=== PATIENT | male | born 1950 | race Caucasian/White ===

== ENCOUNTER 2024-08-26 21:44 | Inpatient (IN) | payer MEDICARE, SELFPAY ==
[2024-08-26] VITALS (8 sets, daily range): BP systolic 159–200; BP diastolic 68–88; PULSE 55–66; RESP 14–28; TEMP 36.4; O2SAT 96–100
--- NOTE | ~2024-08-26 | CT_ITS ---
EXAMINATION: CTA chest abdomen pelvis DATE: 08/26/2024 23:02 INDICATION: CP -> back pain, hx CABG and CLL . TECHNIQUE: Computed tomography angiography of the chest, abdomen, and pelvis was performed with 100 m L Omnipaque-350 intravenous contrast in the arterial phase. Automated exposure control and iterative reconstruction technique were employed. The dose-length product was 25765.47 mGy-cm. COMPARISON: X-ray chest, same date; CT abdomen pelvis 01/15/2009; CT thorax 04/07/2005 FINDINGS: CHEST: Thoracic aorta: No significant dilation. No dissection. Mild arch calcification. Bovine arch. Lung parenchyma and airways: Motion artifact in the lungs. Small patchy areas of groundglass opacity in the upper and anterior lungs. Minimal dependent scar/atelectasis. Minimal airway debris in the tra bladimir. Thoracic inlet, axillae and chest wall: Mild symmetric gynecomastia. No thyroid mass. No axillary lym phadenopathy. Mediastinum: No mass or lymphadenopathy. Heart and pericardium: Cardiomegaly. Status post CABG. No pericardial effusion. Tricuspid valve repla cement. Atrial occlusion device. Coronary artery calcifications: . Pleura: Nonsimple small bilateral loculated appearing pleural fluid collections with surrounding pleu ral calcifications. Thoracic bones: No acute osseous finding in the chest. ABDOMEN/PELVIS: Liver: Normal. Biliary/Gallbladder: Gallbladder is normal. No bile duct dilation. Pancreas: No mass or duct dilation. Spleen: Normal. Adrenals:No mass. Kidneys: Mild bilateral cortical thinning. Bilateral subcentimeter hypodensities, too small to charac terize but most likely represent cysts. No obstructing calcification. No hydronephrosis. GI tract: Small hiatal hernia. No small or large bowel dilation. Normal appendix. Diverticulosis with out diverticulitis. Mesentery/Peritoneum: No ascites, mass, or free air. Retroperitoneum: No mass Atherosclerotic calcifications of intra-abdominal arterial vessels. 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 No aneurysm or dissection. IVC filter. Pelvis: Mild urinary bladder wall thickening. Prostatomegaly. Prominent bilateral seminal vesicles, a chronic finding. Soft Tissues: Small uncomplicated fat-containing umbilical and bilateral inguinal hernias. 2.9 cm rig ht lateral chest wall lipoma. 2.9 x 7.7 cm right erector spinae muscle intramuscular lipoma. Abdominopelvic bones: No acute osseous finding in the abdomen/pelvis. IMPRESSION: Mild patchy peripheral upper and anterior lung groundglass opacities, may represent mild edema or aty pical infection. Minimal tracheal airway debris, likely reflecting a degree of aspiration. Small loculated appearing nonsimple bilateral pleural fluid collections with peripheral calcification , may represent chronic hemothoraces. Empyema not excluded. Urinary bladder wall thickening as can be seen with cystitis or chronic obstruction from prostatomega ly. 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 Slow interval growth since 2 009. No aggressive features. Typically, soft tissue lipomas are referred for potential resection, whe n greater than 5 cm. Reviewed, dictated and finalized at location K. IMPRESSION: Mild patchy peripheral upper and anterior lung groundglass opacities, may repre sent mild edema or atypical infection. Minimal tracheal airway debris, likely reflecting a degree of aspiration. Small loculated appearing nonsimple bilateral pleural fluid collections with pe ripheral calcification, may represent chronic hemothoraces. Empyema not exclude d. Urinary bladder wall thickening as can be seen with cystitis or chronic obstruc tion from prostatomegaly. 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 Slow i nterval growth since 2008. No aggressive features. Typically, soft tissue lipom as are referred for potential resection, when greater than 5 cm.
--- NOTE | ~2024-08-26 | XR_ITS ---
EXAMINATION: XR chest 2V Exam Date/Time: 08/26/2024 22:00 CDT HISTORY: chest pain ANTERIOR MID CHEST Comparison: 03/08/2012. RESULT: Lines, tubes, and devices: Intact sternotomy wires. Cardiac valve replacement. Atrial occlusion stuart ce. Lungs and pleura: No focal consolidation, large pleural effusion, or pneumothorax. Mild bilateral co stophrenic angle blunting. Cardiomediastinal silhouette: Stable. Other: No acute osseous or upper abdominal finding. IMPRESSION: No acute cardiopulmonary process. Stable mild chronic bilateral costophrenic angle blunting, likely r elated to chronic scarring. Reviewed, dictated and finalized at location K. IMPRESSION: No acute cardiopulmonary process. Stable mild chronic bilateral costophrenic an gle blunting, likely related to chronic scarring.
--- NOTE | ~2024-08-26 | NM_ITS ---
EXAMINATION: NM joyce stress w perfusion DATE: 08/28/2024 11:22 CDT INDICATION: Chest pain TECHNIQUE: Rest images were obtained following intravenous administration of 11.2 mCi Tc99m tetrofosm in (Myoview). The patient was infused intravenously with Lexiscan (regadenoson). Then, 30.4 mCi Tc99m tetrofosmin (Myoview) was administered intravenously, and stress images were obtained. Data was martínez nstructed into short axis and horizontal and vertical long axis SPECT images. Gated SPECT images were also obtained. COMPARISON: None. FINDINGS: There is no definite reversible or fixed perfusion abnormality to suggest ischemia or infar ction. There is no segmental wall motion abnormality. Left ventricular ejection fraction measures 6 5%. IMPRESSION: 1. No definite ischemia or infarct. 2. Normal left ventricular ejection fraction measuring 65%. Reviewed, dictated and finalized at location A.
--- NOTE | 2024-08-26 21:45 | ECG_ITS ---
Test Date: 2024-08-26 21:49:43 Measurements Intervals [place] Rate: 66 P: 48 MD: 177 QRS: 29 QRSD: 106 T: 57 QT: 400 QTc: 421 Interpretive Statements SINUS RHYTHM NONSPECIFIC T-WAVE ABNORMALITY ABNORMAL ECG No previous ECG available for comparison Electronically Signed On 08-27-2024 10:03:19 CDT by Rafa Burnett M.D.
--- OUTSIDE RECORDS SUMMARY | 2024-08-26 21:47 | XMS_ITS | Encounter Summary ---
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 3-vessel coronary artery disease Procedures na Referral ID Status Reason Start Date Expiration Date Visits Re quested Visits Authorized [id number] 1 1 Encounter Details Date Type Department Care Team (Late st Contact Info) Description 05/26/2022 1:00 PM CDT Hospital Encounter [facility] [address] [place] [address] Emery Angeles MD [id number] [place] [address] Social History Tobacco Use Types Packs/Day Years Used Date Smoking Tobacco: Former Cigarettes 0.5 20 1 973 - 1992 Passive Smoke Exposure: Past Smokeless Tobacco: Never Alcohol Use Standard Drinks/Week Comments Yes 0 (1 standard drink = 0.6 oz pur e alcohol) Rarely OASIS D0700: Social Isolation Answer Da te Recorded Frequency of experiencing loneliness or isolatio n Never 07/19/2022 OASIS A1250: Transportation Answer Date Recorded Lack of Transportation (Medical) No 07/19/2022 Lack of Transportation (Non-Medical) No 07/19/2022 Patient Unable or Declines to Respond No 07/19/2022 OASIS B1300: Health Literacy Answer Dangelo e Recorded Frequency of needing help to read materials from doctor or pharmacy Never 07/19/2022 [facility] Utilities Answer Date Recorded In the past 12 months has th e [employer], gas, oil, or water [employer] threatened to shut off services in your home? No 09/25/2023 Social Connection and Isolat ion Panel [NHANES] Answer Date Recorded In a typical week, how many times do you talk on the phone with family, friends, or neighbors? More than three times a week 09/25/2023 How often do you get togethe r with friends or relatives? More than three times a week 09/25/2023 How often do you attend chur ch or mormon services? Never 09/25/2023 Do you belong to any clubs o r organizations such as methodist groups, unions, fraternal or athletic groups, or school groups? Yes 09/25/2023 How often do you attend meet ings of the clubs or organizations you belong to? More than 4 times per year 09/25/2023 Are you , , di vorced, , never , or living with a partner? 09/25/2023 AUDIT-C Answer Date Recorded Q1: How often do you have a drink containing alc ohol? 2-4 times a month 12/08/2021 Q2: How many drinks containi ng alcohol do you have on a typical day when you are drinking? 1 or 2 12/08/2021 Frequency of Binge Drinking Not on file 04/2021 Overall Financial Resource Strain (CARDIA) Answe r Date Recorded How hard is it for you to pa y for the very basics like food, housing, medical care, and heating? Not hard at all 09/25/2023 PHQ-2 Answer Date Recorded PHQ-2 Total Score (If total score is 3 or more points, staff should administer the PHQ-9) 0 05/22/2024 Hunger Vital Sign Answer Date Recorded Within the past 12 months, y ou worried that your food would run out before you got the money to buy more. Never true 09/25/19 24 Within the past 12 months, t he food you bought just didn't last and you didn't have money to get more. Never true 09/25/2023 PRAPARE - Transportation Answer Date Re corded In the past 12 months, has l ack of transportation kept you from medical appointments or from getting medications? No 09/06 In the past 12 months, has l ack of transportation kept you from meetings, work, or from getting things needed for daily living? No 09/25/2023 Housing Stability Vital Sign Answer Dangelo e Recorded In the last 12 months, was t here a time when you were not able to pay the mortgage or rent on time? No 09/25/2023 In the past 12 months, how m any times have you moved where you were living? 0 09/25/2023 At any time in the past 12 m [facility], were you homeless or living in a senior care (including now)? No 09/25/2023 Personal Safety Answer Date Recorded Have you ever been in or are you currently in a harmful physical or emotional relationship or is someone making you feel afraid or unsafe? 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 Gender Identity Male 09/21/2020 8:05 AM CDT Sexual Orientation Straight 09/21/2020 8: 05 AM CDT documented as of this encounter Last Filed Vital Signs Vital Sign Reading Time Taken Comments Blood Pressure 143/78 05/26/2022 5:20 PM CDT Pulse 73 05/26/2022 5:20 PM CDT Temperature - - Respiratory Rate 23 05/26/2022 5:20 PM CDT Oxygen Saturation 97% 05/26/2022 5:20 PM CDT Inhaled Oxygen Concentration - - Weight - - Height - - Body Mass Index - - documented in this encounter Functional Status * Audit-C Score Answer Date of Assessment Author 2 08/01/2023 5:47 PM CDT Che, Generic Provider * Q1: How often do you have a drink containing alcohol? Answer Date of Assessment Author 2-4 times a month 08/01/2023 5:47 PM CDT Mychart , Generic Provider * Q2: How many drinks containing alcohol do you have on a typical day when you are drinking? Answer Date of Assessment Author 1 or 2 08/01/2023 5:47 PM CDT Che, Generic Provider * Q3: How often do you have six or more drinks on one occasion? Answer Date of Assessment Author Never 08/01/2023 5:47 PM CDT Che, Generic Provider documented as of this encounter Nursing Notes * Elham Rodriguez RN - 05/26/2022 1:00 PM CDT Patient awake, alert and oriented x4. Vital signs stable. Right wrist no bleeding, no swelling present. Able to void without difficulty. Patient able to eat and drink without nausea or vomiting. Report called to To [id number] per wheelchair with RN. documented in this encounter Plan of Treatment Not on file documented as of this encounter Visit Diagnoses Not on filedocumented in this encounter Orders Admission Count Last Ordered Date First Orde red Date ADMIT TO INPATIENT 1 05/26/2022 documented in this encounter Care Teams Lace And Textiles Restorer Relationship Specialty [place] [address] [place] [address] PCP - General Internal Medicine 05/02/19 [place] [address] [place] [address] Surgeon Orthopedic Surgery 07/30/17 Shonda mSart MD [address] [place] [address] Medical Oncologist/Windows Laptop Technician Medical Oncology 03/30/20 08/28/23 documented as of this encounter
--- OUTSIDE RECORDS SUMMARY | 2024-08-26 21:47 | XMS_ITS | Encounter Summary ---
Author Organization [facility] Healthcare Address [address] [place] [address] Care Team Providers Care Rn L And D Name Role Phone Herbie Melendrez MD Unavailable Nisreen Gayle MD Primary Care Provider An Sin NP Unavailable [phone] Shonda Smart MD Unavailable Leann No MD Unavailable Emery Angeles MD Unavailable Miscellaneous, Not In File Unavailable Unava ilable Nieves Rhodes RN Unavailable [phone] Encounter Details Date Type Department Care Team (Latest Contact Info) Description 01/11/2022 Hospital Encounter [facility] [address] [place] [id number] Shortness of breath; Pleural effusion Social History Tobacco Use Types Packs/Day Years Used Date Smoking Tobacco: Former Cigarettes 0.5 20 1 - 1992 Passive Smoke Exposure: Past Smokeless [...] materials from doctor or pharmacy Never 07/19/2022 [facility] Utilities Answer Date Recorded In the past 12 months has th e electric, gas, oil, or water company threatened to shut off services in your [...] often do you attend chur ch or episcopalian services? Never 09/25/2023 Do you belong to any clubs o r organizations such as zoroastrianism groups, unions, fraternal or athletic groups, or [...] the money to buy more. Never true 08/20/20 24 Within the past 12 months, t [...] any time in the past 12 m [facility], were you homeless or living in a halfway (including now)? No 09/25/2023 Personal Safety Answer Date Recorded Have you ever been in or are you currently in a harmful physical or emotional relationship or is someone making you feel afraid or unsafe? 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 Answer Date of Assessment Author 2-4 times a month 08/01/2023 5:47 PM CDT Rhonda Bolton Provider * Q2: How many drinks containing alcohol do you have on a typical day when you are drinking? Answer Date of Assessment Author 1 or 2 08/01/2023 5:47 PM EMMANUELLET Rhonda Bolton Provider * Q3: How often do you have six or more drinks on one occasion? Answer Date of Assessment Author Never 08/01/2023 5:47 PM EMMANUELLET Rhonda Bolton Provider documented as of this encounter Plan of Treatment Not on file documented as of this encounter Procedures Procedure Name Priority Date/Time Associated Diagnosis Comments EGFR Routine 01/11/2022 9:20 AM HOTEL OR MOTEL CLEANING SUPERVISOR Shortness of breath Pleural effusion PRO B-TYPE NATRIURETIC PEPTIDE Routine 01/11/2022 9:20 AM HOTEL OR MOTEL CLEANING SUPERVISOR Shortness of breath Pleural effusion BASIC METABOLIC PANEL Routine 01/11/2022 9:20 AM HOTEL OR MOTEL CLEANING SUPERVISOR Shortness of breath Pleural effusion documented in this encounter Results * eGFR (01/11/2022 9:20 AM HOTEL OR MOTEL CLEANING SUPERVISOR) eGFR 72 mL/min/1. 73 m2 [facility] Comment: Interpretive Data Reference Interval Normal >/= 90 mL/min/1.73m2 Mildly decreased* 60 - 89 mL/min/1.73m2 Mildly to moderately decreased 45 - 59 mL/min/1.73m2 Moderately to severely decreased 30 - 44 mL/min/1.73m2 Severely decreased 15 - 29 mL/min/1.73m2 Kidney Failure < 15 mL/min/1.73m2 *Relative to young adult level Estimated glomerular filtration rate is determined by the 2020 CKD-EPI equation recommended by the National Kidney Foundation (A Unifying Approach to GFR Estimation: Recommendations of the NKF-ASK Task Force on Reassessing the Inclusion of Race in Diagnosing Kidney Disease, JASN 2020). The CKD-EPI equation should not be used for patients with unstable renal function and has not been validated in children and those over 70. Current interpretive data was last reviewed 2020. Testing performed by: [facility] [address], [facility] [address] Blood 01/11/2022 9:20 AM HOTEL OR MOTEL CLEANING SUPERVISOR 01/11/2022 9:33 AM HOTEL OR MOTEL CLEANING SUPERVISOR us Krish Alexander MD LAB BLOOD ORDERABLES Final Res ult [facility] [address] Department [place] [address] * Basic metabolic panel (01/11/2022 9:20 AM HOTEL OR MOTEL CLEANING SUPERVISOR) Sodium 138 135 - 145 mmol/L CERNER CH Comment:Testing performed by : [facility],[address] [place] [address] Potassium, pl 4.2 3.3 - 4.9 mmol/L CERNER CH Comment:Testing performed by : [facility],[address] [place] [address] Chloride 103 97 - 110 mmol/L C[facility]ER CH Comment:Testing performed by : [facility],[address] [place] [address] CO2 24 22 - 32 mmol/L [facility]ER CH Comment:Testing performed by : [facility],[address] [place] [address] Anion gap 11 2 - 15 mmol/L [facility]ER CH Comment:Testing performed by : [facility],[address] [place] [address] BUN 25 8 - 25 mg/dL [facility]ER CH Comment:Testing performed by : [facility],[address] [place] [address] Creatinine 1.10 0.80 - 1.30 mg/dL [facility]ER CH Comment:Testing performed by : [facility],[address] [place] [address] Glucose 139 70 - 199 mg/dL CERNER Comment: Interpretive Data Fasting glucose >/= 126 mg/dl is diagnostic for diabetes. Fasting is defined as no caloric intake for at least 8 hours. Fasting glucose between 100 mg/dl to 125 mg/dl is diagnostic of prediabetes. In a patient with classic symptoms of hyperglycemia or hyperglycemic crisis, a random glucose >/= 200 mg/dl is diagnostic for diabetes. In the absence of unequivocal hyperglycemia, results should be confirmed by repeat testing. The classification and Diagnosis of Diabetes Diabetes Care 2017;40 (Suppl. 1):S11. Current interpretive data was last revised 2016. Testing performed by: [facility],[address] [place] [address] Calcium 9.4 8.5 - 10.3 mg/dL C[facility]ER CH Comment:Testing performed by : [facility],[address] [place] [address] Blood 01/11/2022 9:20 AM HOTEL OR MOTEL CLEANING SUPERVISOR 01/11/2022 9:33 AM HOTEL OR MOTEL CLEANING SUPERVISOR Narrative CERNER - 01/11/2022 11:05 AM HOTEL OR MOTEL CLEANING SUPERVISOR Has the patient fasted?->No us Krish Alexander MD LAB BLOOD ORDERABLES Edited Re sult - Final [facility]I [facility] [address] [facility] Department [place] [address] * Pro B-type natriuretic peptide (01/11/2022 9:20 AM HOTEL OR MOTEL CLEANING SUPERVISOR) NT-proBNP 144 <=300 pg/mL PALLAVI Comment: Interpretive Comments: A. Dyspnea in Acute Care Setting All Ages: < 300 pg/ml, acute heart failure unlikely. < 50 yrs: 300 - 450 pg/ml, further investigation warranted. > 450 pg/ml, acute heart failure likely. 50 - 74 yrs: 300 - 900 pg/ml, further investigation warranted. > 900 pg/ml, acute heart failure likely . > or = 75 yrs: 450 - 1800 pg/ml, further investigation warranted. > 1800 pg/ml, acute heart failure likely. B. Non-acute Setting < 75 yrs < 125 pg/ml, rules out heart failure. > or = 125 pg/ml, further investigation warranted. > or = 75 yrs < 450 pg/ml, rules out heart failure. > or = 450 pg/ml, further investigation warranted. - Knowledge of each individual patient's NT-proBNP range may be more useful than using similar cut-points for every patient. Please note that marked elevations in NT-proBNP levels may be observed in state other than Left Ventricular Congestive Failure, including: acute coronary syndromes, right heart strain/failure (including pulmonary embolism and cor pulmonale), critical illness, renal failure, as well as advanced age. - References: 1. Josie VAIL et.al. Eur Heart J. 2006:27:330-337. 2. Lillian RW, Saqib AM. J. AM Neptali Cardiol: Cardiovasc Imag. 2009;2: 216- 225. Interpretive Data Last Revised Date: 2017. Blood 01/11/2022 9:20 AM HOTEL OR MOTEL CLEANING SUPERVISOR 01/11/2022 10:48 AM HOTEL OR MOTEL CLEANING SUPERVISOR Krish Alexander MD LAB BLOOD [place] [address] Department [place] [address] documented in this encounter Visit Diagnoses Diagnosis Shortness of breath Pleural effusion Unspecified pleural effusion documented in this encounter Care Teams Rn L And D Relationship Specialty [place] [address] [place] [address] PCP - General Internal Medicine 05/02/19 [place] [address] [place] [address] Surgeon Orthopedic Surgery 07/30/17 [place] [address] [place] [address] Nurse Practitioner Hematology 03/11/20 05/09/22 Shonda Smart MD [facility] [place], [place] [id number] Medical Oncologist/Hematologis t Medical Oncology 03/30/20 08/28/23 Leann No MD [address] [place], [place] [id number] Medical Oncologist/Hematologis t Hematology 08/17/21 05/09/22 Emery Angeles MD [address] [place], [place] [id number] Consulting Physician Cardiothoracic Surgery 06/24/22 Miscellaneous, Not In File 06/24/22 Nieves Rhodes RN [address] [place] [address] [address] [place] [address] Medical Technologist Chemistry 05/23/23 12/20/23 documented as of this encounter
--- OUTSIDE RECORDS SUMMARY | 2024-08-26 21:47 | XMS_ITS | Encounter Summary ---
Author Organization [facility] Healthcare Address [address] [place] [address] Care Team Providers Care It Project Manager Name Role Phone Herbie Melendrez MD Unavailable Nisreen Gayle MD Primary Care Provider Emery Angeles MD Unavailable [phone] Miscellaneous, Not In File Unavailable Unava ilable Reason for Visit * Reason Comments OP Infusion * Episode Based Medications (Routine) - Authorized Specialty Diagnoses / Procedures Referred By Contaudelia t Referred To Contact Oncology Diagnoses CLL (chronic lymphocytic leukemia) (HCC) Hypogammaglobulinemia Procedures CHEMOTHERAPY PA GAMUNEX-C/GAMMAKED IMMUNE GLOBULIN (GAMUNEX-C/GAMMAKED) Shonda Smart MD [address] [place] [address] [address] [place] [address] Phone: tel: fax: [facility] [address] [place] [address] Phone: tel: fax: Referral ID Status Reason Start Date Expiration Date V isits Requested Visits Authorized [id number] Authorized 07/04/2017 02/19/2025 99 99 Encounter Details Date Type Department Care Team (Latest Contact Info) Description 08/26/2024 8:30 AM CDT Infusion [facility] [address] [place] [address] Hypogammaglobulinemia (Primary Dx); CLL (chronic lymphocytic leukemia) (HCC) Social History Tobacco Use Types Packs/Day Years [...] materials from doctor or pharmacy Never 07/19/2022 [facility] Utilities Answer Date Recorded In the past 12 months has [employer], oil, or water [employer] threatened to shut off services in your [...] often do you attend chur ch or bahai services? Never 09/25/2023 Do you belong to any clubs o r organizations such as cheondoism groups, unions, fraternal or athletic groups, or [...] any time in the past 12 m [facility], were you homeless or living in a jail (including now)? No 09/25/2023 Personal Safety Answer Date Recorded Have you ever been in or are you currently in a harmful physical or emotional relationship or is someone making you feel afraid or unsafe? 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 Gender Identity Male 09/21/2020 8:05 AM CDT Sexual Orientation Straight 09/21/2020 8: 05 AM CDT documented as of this encounter Last Filed Vital Signs Vital Sign Reading Time Taken Comments Blood Pressure 132/76 08/26/2024 11:04 AM CDT Pulse 54 08/26/2024 11:04 AM CDT Temperature 36.7 C (98 F) 08/26/2024 11:04 AM CDT Respiratory Rate 18 08/26/2024 11:0 4 AM CDT Oxygen Saturation 98% 08/26/2024 11: 04 AM CDT Inhaled Oxygen Concentration - - Weight 101.1 kg (222 lb 12.8 oz) 08/26/2024 8:35 AM CDT Height - - Body Mass Index 31.09 05/22/2024 10:21 AM CDT documented in this encounter Nursing Notes * Jovany Castro RN - 08/26/2024 8:30 AM CDT Oncology Nursing Note [facility] Jack Corbett is a 73 y.o. male who presents for treatment cycle 85 of IVIG. Pre-treatment Nursing Assessment Nursing Assessment LOC: Alert, Awake Fatigue: None Any falls since your last visit?: No Orientation: Oriented x4 Behavior: Calm Speech: Clear Language: No aphasia Vision: At baseline Peripheral Neuropathy: No Oral Mucosa Grade: Normal (0) Shortness of Breath?: Yes (all the time, mild) Appetite: Good What diet do you follow at home?: regular Have You Recently Lost Weight Without Trying?: No Have you been eating poorly because of a decreased appetite?: No Malnutrition Screening Tool (MST) Score: 0 Nausea/Vomiting: No Diarrhea: No Constipation: No Skin Condition/Temp: Warm, Dry Swelling: No Encounter Vitals BP: 132/76 (08/26/2024 11:04 AM) Pulse: 54 (08/26/2024 11:04 AM) Resp: 18 (08/26/2024 11:04 AM) Temp: 36.7 ??C (98 ??F) (08/26/2024 11:04 AM) Temp src: Oral (08/26/2024 8:35 AM) SpO2: 98 % (08/26/2024 11:04 AM) Weight: 101.1 kg (222 lb 12.8 oz) (08/26/2024 8:35 AM) Pain Score: 0 - No pain Treatment Patient: does not require labs today. Pre blood return: Jellyisk Jack Corbett tolerated treatment well. Patient was frequently observed and monitored throughout the administration of their treatment. Post blood return: Brisk IV access post infusion: NS Patient Education Treatment Education: Information/teaching given to patient including fall prevention, pain, signs and symptoms of infection, bleeding, adverse reaction, symptom management, process and procedure related to today's visit, and when to notify MD Response: Verbalizes understanding Discharge Plan Discharge instructions given to patient. Future appointments given and reviewed with treatment plan. Discharge Mode: Ambulatory Accompanied by: Self Discharged To: Home documented in this encounter Plan of Treatment Not on file documented as of this encounter Visit Diagnoses Diagnosis Hypogammaglobulinemia- Primary Unspecified hypogammaglobulinemia CLL (chronic lymphocytic leukemia) (HCC) Chronic lymphoid leukemia, without mention of having achieved remission documented in this encounter Administered Medications Inactive Administered Medications - up to 3 most recent administrations Medication Order MAR Action Action Date Dose Rate Site acetaminophen (TYLENOL) tablet 650 mg 650 mg, oral, Once, On Sun08/26/24 at 0930, For 1 dose, Please give 30 minutes prior to IVIG.Indications:CLL (chronic lymphocytic leukemia) (HCC),Hypogammaglobulinemia Given 08/26/2024 8:57 AM CDT 650 mg diphenhydrAMINE (BENADRYL) tab/cap 25 mg 25 mg, oral, Once, On Sun08/26/24 at 0930, For 1 dose, Give 30 minutes prior to IVIG.Indications:CLL (chronic lymphocytic leukemia) (HCC),Hypogammaglobulinemia Given 08/26/2024 8:57 AM CDT 25 mg immune globulin (GAMUNEX-C,GAMMAKED) 10 % infusion 40 g 40 g (rounded from 40.44 g = 400 mg/kg 101.1 kg), intravenous, Once, On Sun08/26/24 at 0927, For 1 dose, GamuNEX C SUBSEQUENT Infusion, 15 Minute Titration Patient Weight: 101.1 kg Initiate Infusion at 0.6 mL/kg/hr. If no reaction, may increase rate by 0.6 mL/kg/hr every 15 minutes, to a max of 4.8 mL/kg/hr 1 . 0.6 mL/kg/hr = Infuse 15 mL over 15 minutes (Rate = 61 mL/hr) 2 . 1.2 mL/kg/hr = Infuse 30 mL over 15 minutes (Rate = 121 mL/hr) 3 . 1.8 mL/kg/hr = Infuse 45 mL over 15 minutes (Rate = 182 mL/hr) 4 . 2.4 mL/kg/hr = Infuse 61 mL over 15 minutes (Rate = 243 mL/hr) 5 . 3.0 mL/kg/hr = Infuse 76 mL over 15 minutes (Rate = 303 mL/hr) 6 . 3.6 mL/kg/hr = Infuse 91 mL over 15 minutes (Rate = 364 mL/hr) 7 . 4.2 mL/kg/hr = Infuse 106 mL over 15 minutes (Rate = 425 mL/hr) 8 . 4.8 mL/kg/hr for remainder (Rate = 485 mL/hr) __ Dose may be rounded to nearest 5 grams. Infusion Rate: For Patients up to 75kg 25 mL/hr x 30 minutes, then 50 mL/hr x 30 minutes, then 100 mL/hr x 30 minutes, then 130 mL/hr x 30 minutes, then 160 mL/hr until infusion complete 76 - 100kg 36 mL/hr x 30 minutes, then 72 mL/hr x 30 minutes, then 144 mL/hr x 30 minutes, then 200 mL/hr x 30 minutes, then 250 mL/hr until infusion complete > 100 kg 50 mL/hr x 30 minutes, then 100 mL/hr x 30 minutes, then 200 mL/hr x 30 minutes, then 260 mL/hr x 30 minutes, then 325 mL/hr until infusion complete Pharmacy will adjust dose for patients >120% ideal body weight based on the P&T Committee approved protocol.Indications:CLL (chronic lymphocytic leukemia) (HCC),Hypogammaglobulinemia Rate/Dose Change 08/26/2024 11:20 AM CDT Rate/Dose Change 08/26/2024 11:04 AM CDT 425 mL /hr Rate/Dose Change 08/26/2024 10:49 AM CDT 364 mL /hr documented in this encounter Orders Nursing Count Last Ordered Date First Orde red Date ONCBCN NURSING COMMUNICATION [id number] 2 0 08/26/2024 VITAL SIGNS INTRA-INFUSION 1 08/26/2024 Appointment Requests Count Last Ordered Date Fi rst Ordered Date ONCBCN INFUSION APPT REQUEST 1 08/26/2024 documented in this encounter Care Teams It Project Manager Relationship Specialty [place] [address] [place] [address] PCP - General Internal Medicine 05/02/19 [place] [address] [place] [address] Surgeon Orthopedic Surgery 07/30/17 [place] [address] [place] [address] Consulting Physician Cardiothoracic Surgery 06/24/22 Miscellaneous, Not In File 06/24/22 documented as of this encounter
--- OUTSIDE RECORDS SUMMARY | 2024-08-26 21:47 | XMS_ITS | Encounter Summary ---
Author Organization [facility] Healthcare Address [address] [place] [address] Care Team Providers Care Wiper Blender Name Role Phone Herbie Melendrez MD Unavailable Nisreen Gayle MD Primary Care Provider An Sin NP Unavailable Shonda Smart MD Unavailable Leann No MD Unavailable [phone] Emery Angeles MD Unavailable Miscellaneous, Not In File Unavailable Unava ilable Nieves Rhodes RN Unavailable [phone] Encounter Details Date Type Department Care Team (Late st Contact Info) Description 04/06/2020 Telephone [facility] [address] [place] [address] Bing Briones, RT Social History Tobacco Use Types Packs/Day Years Used Date Smoking Tobacco: Former Cigarettes 0.5 20 1 3 - 1992 Smokeless Tobacco: Never Alcohol Use Standard Drinks/Week Comments Yes 0 (1 standard drink = 0.6 oz pur e alcohol) Rarely PHQ-2 Answer Date Recorded PHQ-2 Total Score 0 05/02/2019 Sex and Gender Information Value Date Recorded Sex Assigned at Not on file 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 Gender Identity Male 09/21/2020 8:05 AM CDT Sexual Orientation Straight 09/21/2020 8: 05 AM CDT documented as of this encounter Plan of Treatment Not on file documented as of this encounter Visit Diagnoses Not on filedocumented in this encounter Care Teams Wiper Blender Relationship Specialty [place] [address] [place] [address] PCP - General Internal Medicine 05/02/19 [place] [address] [place] [address] Surgeon Orthopedic Surgery 07/30/17 [place] [address] [place] [address] Nurse Practitioner Hematology 03/11/20 05/09/22 Shonda Smart MD [address] [facility] [address] [place] [address] Medical Oncologist/Hematologis t Medical Oncology 03/30/20 08/28/23 Leann No MD [address] [place] [address] Medical Oncologist/Hematologis t Hematology 08/17/21 05/09/22 Emery Angeles MD [address] [place] [address] Consulting Physician Cardiothoracic Surgery 06/24/22 Miscellaneous, Not In File 06/24/22 Nieves Rhodes RN [address] [place] [address] [address] [place] [address] Rehab Care Assistant 05/23/23 12/20/23 documented as of this encounter
--- OUTSIDE RECORDS SUMMARY | 2024-08-26 21:47 | XMS_ITS | Encounter Summary ---
Author Organization [facility] Address [address] [place] [address] Phone Care Team Providers Care Zanjero Name Role Phone Baldomero Ignacio MD Primary Care Provider Herbie Melendrez MD Unavailable Nisreen Gayle MD Primary Care Provider An Sin NP Unavailable Shonda Smart MD Unavailable Leann No MD Unavailable [phone] Emery Angeles MD Unavailable Miscellaneous, Not In File Unavailable Unava ilable Nieves Rhodes RN Unavailable Reason for Visit * Reason Onset Date Comments SCHEDULE UPDATE 09/18/2018 Encounter Details Date Type Department Care Team (Late st Contact Info) Description 09/18/2018 Telephone [facility] Oncology [address] 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 Gender Identity Male 09/21/2020 8:05 AM CDT Sexual Orientation Straight 09/21/2020 8: 05 AM CDT documented as of this encounter Plan of Treatment Not on file documented as of this encounter Visit Diagnoses Not on filedocumented in this encounter Care Teams Zanjero Relationship Specialty Start Date End Date Baldomero Ignacio MD PCP - General 05/25/16 05/01/19 [place] [address] [place] [address] PCP - General Internal Medicine 05/02/19 [place] [address] [place] [address] Surgeon Orthopedic Surgery 07/30/17 [place] [address] [place] [address] Nurse Practitioner Hematology 03/11/20 05/09/22 Shonda Smart MD [address] [place] [address] [address] [place] [address] Medical Oncologist/Hematologis t Medical Oncology 03/30/20 08/28/23 Leann No MD [address] [place], [place] [address] Medical Oncologist/Hematologis t Hematology 08/17/21 05/09/22 Emery Angeles MD [address] [place] [address] [address] [place] [address] Consulting Physician Cardiothoracic Surgery 06/24/22 Miscellaneous, Not In File 06/24/22 Nieves Rhodes, [place] [address] [place] [address] [address] [place] [address] Braille Coder 05/23/23 12/20/23 documented as of this encounter
--- OUTSIDE RECORDS SUMMARY | 2024-08-26 21:47 | XMS_ITS | Encounter Summary ---
Author Organization [facility] Address [address] [place] [address] Phone Care Team Providers Care Scoop Operator Name Role Phone Baldomero Ignacio MD Primary Care Provider Herbie Melendrez MD Unavailable Nisreen Gayle MD Primary Care Provider An Sin NP Unavailable [phone] Shonda Smart MD Unavailable Leann No MD Unavailable [phone] Emery Angeles MD Unavailable [phone] Miscellaneous, Not In File Unavailable Unava ilable Nieves Rhodes RN Unavailable Reason for Visit * Reason Onset Date Comments SCHEDULE UPDATE 02/26/2019 Encounter Details Date Type Department Care Team (Late st Contact Info) Description 02/26/2019 Telephone [facility] Oncology 10 [facility] [address] [place] [address] Yane Chu, A SCHEDULE UPDATE Social History Tobacco Use Types Packs/Day Years Used Date Smoking Tobacco: Former Smokeless Tobacco: Never Alcohol Use Standard Drinks/Week Comments Yes 0 (1 standard drink = 0.6 oz pur e alcohol) saocial PHQ-2 Answer Date Recorded PHQ-2 Score 0 09/28/2018 Sex and Gender Information Value Date Recorded Sex Assigned at Not on file 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 Gender Identity Male 09/21/2020 8:05 AM CDT Sexual Orientation Straight 09/21/2020 8: 05 AM CDT documented as of this encounter Plan of Treatment Not on file documented as of this encounter Visit Diagnoses Not on filedocumented in this encounter Care Teams Scoop Operator Relationship Specialty Start Date End Date Baldomero Ignacio MD PCP - General 05/25/16 05/01/19 [place] [address] [place] [address] PCP - General Internal Medicine 05/02/19 [place] [address] [place] [address] Surgeon Orthopedic Surgery 07/30/17 [place] [address] [place] [address] Nurse Practitioner Hematology 03/11/20 05/09/22 Shonda Smart MD [address] [facility] [address] [place] [address] Medical Oncologist/Hematologis t Medical Oncology 03/30/20 08/28/23 Leann No MD [address] [facility] [address] [place] [address] Medical Oncologist/Hematologis t Hematology 08/17/21 05/09/22 Emery Angeles MD [address] [facility] [address] [place] [address] Consulting Physician Cardiothoracic Surgery 06/24/22 Miscellaneous, Not In File 06/24/22 Nieves Rhodes, [place] [address] [place] [address] [address] [place] [address] Hydrodynamics Professor 05/23/23 12/20/23 documented as of this encounter
--- OUTSIDE RECORDS SUMMARY | 2024-08-26 21:47 | XMS_ITS | Encounter Summary ---
Author Organization [facility] Healthcare Address [address] [place] [address] Care Team Providers Care Alternative Energy Engineer Name Role Phone Herbie Melendrez MD Unavailable Nisreen Gayle MD Primary Care Provider An Sin NP Unavailable Shonda Smart MD Unavailable Leann No MD Unavailable [phone] Emery Angeles MD Unavailable Miscellaneous, Not In File Unavailable Unava ilable Nieves Rhodes RN Unavailable [phone] Encounter Details Date Type Department Care Team (Late st Contact Info) Description 07/09/2020 Telephone [facility] Imaging [address] [place] [address] Bing Briones, RT Social History Tobacco Use Types Packs/Day Years Used Date Smoking Tobacco: Former Cigarettes 0.5 20 1 3 - 1992 Smokeless Tobacco: Never Alcohol Use Standard Drinks/Week Comments Yes 0 (1 standard drink = 0.6 oz pur e alcohol) Rarely AUDIT-C Answer Date Recorded Q1: How often do you have a drink containing alc ohol? Monthly or less 05/31/2020 Q2: How many drinks containi ng alcohol do you have on a typical day when you are drinking? 1 or 2 05/31/2020 Q3: How often do you have si x or more drinks on one occasion? 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 Gender Identity Male 09/21/2020 8:05 AM CDT Sexual Orientation Straight 09/21/2020 8: 05 AM CDT documented as of this encounter Plan of Treatment Not on file documented as of this encounter Visit Diagnoses Not on filedocumented in this encounter Care Teams Alternative Energy Engineer Relationship Specialty [place] [address] [place] [address] PCP - General Internal Medicine 05/02/19 [place] [address] [place] [address] Surgeon Orthopedic Surgery 07/30/17 [place] [address] [place] [address] Nurse Practitioner Hematology 03/11/20 05/09/22 Shonda Smart MD [address] [facility] [address] [place] [address] Medical Oncologist/Hematologis t Medical Oncology 03/30/20 08/28/23 Leann No MD [address] [place] [address] [address] [place] [address] Medical Oncologist/Hematologis t Hematology 08/17/21 05/09/22 Emery Angeles MD [address] [facility] [address] [place] [address] Consulting Physician Cardiothoracic Surgery 06/24/22 Miscellaneous, Not In File 06/24/22 Nieves Rhodes RN [address] [place] [address] [address] [place], [place] [address] Beam Dyer Operator 05/23/23 12/20/23 documented as of this encounter
--- OUTSIDE RECORDS SUMMARY | 2024-08-26 21:47 | XMS_ITS | Encounter Summary ---
Author Organization [facility] Healthcare Address [address] [place] [address] Care Team Providers Care Dependency Case Manager Name Role Phone Herbie Melenderz MD Unavailable Nisreen Gayle MD Primary Care Provider An Sin NP Unavailable Shonda Smart MD Unavailable Leann No MD Unavailable [phone] Emery Angeles MD Unavailable [phone] Miscellaneous, Not In File Unavailable Unava ilable Nieves Rhodes RN Unavailable [phone] Encounter Details Date Type Department Care Team (Late st Contact Info) Description 03/30/2020 Telephone [facility] Imaging [address] [place] [address] [address] Social History Tobacco Use Types Packs/Day Years [...] on file 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 Gender Identity Male 09/21/2020 8:05 AM CDT Sexual Orientation Straight 09/21/2020 8: 05 AM CDT documented as of this encounter Plan of Treatment Not on file documented as of this encounter Visit Diagnoses Not on filedocumented in this encounter Care Teams Dependency Case Manager Relationship Specialty [place] [address] [place] [address] PCP - General Internal Medicine 05/02/19 [place] [address] [place] [address] Surgeon Orthopedic Surgery 07/30/17 [place] [address] [place] [address] Nurse Practitioner Hematology 03/11/20 05/09/22 Shonda Smart MD [address] [facility] [address] [place] [address] Medical Oncologist/Hematologis t Medical Oncology 03/30/20 08/28/23 Leann No MD [address] [place] [address] Medical Oncologist/Hematologis t Hematology 08/17/21 05/09/22 Emery Angeles MD [address] [place] [address] Consulting Physician Cardiothoracic Surgery 06/24/22 Miscellaneous, Not In File 06/24/22 Nieves Rhodes RN [address] [place] [address] [address] [place] [address] Home Appliance Washing Machine Mechanic 05/23/23 12/20/23 documented as of this encounter
--- OUTSIDE RECORDS SUMMARY | 2024-08-26 21:48 | XMS_ITS | Clinical Summary ---
Author Organization [facility] Address [address] [address] Care Team Providers Care Blueprint Duplicator Name Role Phone Herbie Melendrez MD Unavailable [phone] Nisreen Gayle MD Primary Care Provider Emery Angeles MD Unavailable Miscellaneous, Not In File Unavailable Unava ilable Allergies Active Allergy Reactions Criticality Noted Date Comments Adhesive Photosensitivity Low Atorvastatin Rash Medium 01/11/2020 Bacitracin Zinc-Polymyxin B Blisters High 12/12/2021 Benzalkonium Chloride Rash Medium 12/12/2019 [place] Chloride Rash Medium 12/12/2019 Cocamidopropyl Betaine Rash Medium 12/12/2019 Decyl Glucoside Rash Medium 12/12/2019 Formaldehyde Rash Medium 12/12/2019 Obinutuzumab Other (See comments),Nausea only Low 08/17/2021 Back pain and feeling that muscles are heavy Pitavastatin Rash Medium 01/11/2020 Nickel Rash Medium 12/12/2019 Other Rash Medium 12/12/2019 Potassium dichromate -- patch test 3 Paraben mix -- patch test 1+ Fragrance Mix II -- patch test 1+ [id number] Reductase Inhibitors Rash Medium 10/15/2019 Medications cetirizine (ZyrTEC) 10 mg tablet Take 1 tablet (10 mg total) by mouth daily Active aspirin 81 mg enteric coated tablet Take 1 tablet (81 mg total) by mouth daily 30 tablet 06/03/19 23 Active losartan (COZAAR) 50 mg tablet Take 1 tablet (50 mg total) by mouth daily 90 tablet 3 08/08/19 24 Active metFORMIN XR (GLUCOPHAGE XR) 500 mg 24 hr tablet Take 3 tablets (1,500 mg total) by mouth daily with breakfast 270 tablet 1 11/19/19 24 025 Active glipiZIDE (GLUCOTROL) 5 mg tabletIndications :type 2 diabetes mellitus Take 1 tablet (5 mg total) by mouth daily 90 tablet 3 02/18/19 25 026 Active atorvastatin (LIPITOR) 80 mg tabletIndications :Mixed hyperlipidemia TAKE 1 TABLET BY MOUTH EVERY DAY 90 tablet 2 03/27/19 25 Active PARoxetine (PAXIL) 20 mg tablet TAKE 1 TABLET BY MOUTH EVERY DAY 90 tablet 1 05/01/19 25 Active metoprolol XL (TOPROL-XL) 25 mg extended release tablet TAKE 1 TABLET BY MOUTH EVERY DAY AT NIGHT 90 tablet 3 07/29/19 25 Active tamsulosin (FLOMAX) 0.4 mg extended release capsule TAKE 1 CAPSULE BY MOUTH EVERY DAY 100 capsule 1 08/10/[address] (PROTONIX) 40 mg EC tablet TAKE 1 TABLET BY MOUTH EVERY DAY 100 tablet 08/24/19 25 Active tamsulosin (FLOMAX) 0.4 mg extended release capsule Take 1 capsule (0.4 mg total) by mouth daily 90 capsule 2 11/22/19 24 025 Discontinued metoprolol XL (TOPROL-XL) 25 mg extended release tablet TAKE 1 TABLET BY MOUTH EVERY DAY AT NIGHT 90 tablet 1 02/04/20 [address] (PROTONIX) 40 mg EC tablet TAKE 1 TABLET BY MOUTH EVERY DAY 90 tablet 1 02/10/19 25 025 Discontinued Active Problems Problem Noted Date Diagnosed Date Subclinical hypothyroidism 02/13/2024 Assessment & Plan (02/13/2024 9:45 AM DUCT LAYER HELPER): Will check TSH today. If normal could consider decreasing levothyroxine to 25 mcg daily and then repeat in 8 weeks. He was hoping to get off this medication. It was initially started for subclinical hypothyroidism given his erectile dysfunction, which has not changed with treatment. Pulmonary HTN 12/27/2023 Shortness of breath 12/27/2023 Coronary artery disease 12/27/2023 Erectile dysfunction 08/08/2023 Assessment & Plan (08/08/2023 10:10 AM CDT): Interested in testosterone replacement therapy if he qualifies I have some concerns about TRT with his history of CAD and PE/cardiac thrombus Will check a T level today but recommend pursuing non-hormonal options first. Referred to urology as he has failed 2 PDE5 inhibitors already. Abdominal pain 08/08/2023 Assessment & Plan (08/08/2023 9:27 AM CDT): Suspect MSK pain but will get CT to rule out intraabdominal pathology Pulmonary hypertension 02/06/2023 Assessment & Plan (08/08/2023 7:56 AM CDT): Continue follow up with pulmonology ABLA (acute blood loss anemia) 06/21/2022 Assessment & Plan (06/22/2022 9:05 AM CDT): Expected finding post op CABG, AVR Monitor CBC daily Consider transfusion for Hgb < 7 or if pt becomes symptomatic Thrombocytopenia 06/14/2022 Assessment & Plan (08/08/2023 7:58 AM CDT): Continue follow up with hem/onc Assessment & Plan (07/06/2022 12:32 PM CDT): Stable. Platelets yesterday 171. 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 -Continue metformin 1500 mg extended release daily for control of diabetes. Recommend addition of Ozempic 0.25 mg once weekly for 7 days then increase to 0.5 mg once weekly. Reviewed potential side effects. If not cost effective, try Jardiance. -Discussed weight loss and aerobic exercise at least 30 minutes on most days. Discussed how exercise decreases insulin resistance. -Discussed counting carbohydrates, portion control, and meal planning. -Discussed cardiovascular risk from uncontrolled blood glucose. -Check blood glucose regularly for management of diabetes-fasting goal less than 130, postprandial less than 180. Recommend diabetes education. Discussed importance of glycemic control (A1C < 7.0) in preventing complications of diabetes including retinopathy, nephropathy, risk for cardiovascular event such as heart attack and stroke, and neuropathy. -Patient verbalized an understanding of all instructions and plan. Assessment & Plan (08/08/2023 8:00 AM CDT): A1c today Ozempic was unaffordable Continue metformin XR 1g daily - can increase further if A1c above goal Follow up 6 mo Assessment & Plan (11/24/2022 11:49 AM CDT): A1c today Foot exam and urine micral/cr today Eye exam scheduled Continue metformin 500 daily Add ozempic to assist with weight loss Follow up 6 months Assessment & Plan (06/22/2022 8:57 AM CDT): POA HgA1C 6.9 SSI with tid, ac and hs Carb consistent diet POC BGM BS well controlled on current regimen Assessment & Plan (05/24/2022 12:58 PM CDT): A1c today If above goal, will increase metformin Assessment & Plan (11/09/2021 1:43 PM CDT): A1c above goal Start metformin XR 500 daily Discussed lifestyle modifications Foot exam today without neuropathy Urine micral/cr today He will schedule an eye exam A1c in 3 months Follow up in office in 6 months Class 1 obesity due to exces s calories with body mass index (BMI) of 32.0 to 32.9 in adult 05/31/2020 Assessment & Plan (02/13/2024 8:08 AM DUCT LAYER HELPER): BMI Follow-up includes: nutrition counseling, exercise counseling, and education provided. Assessment & Plan (08/08/2023 9:26 AM CDT): BMI Follow-up includes: nutrition counseling, exercise counseling, and education provided. Assessment & Plan (11/24/2022 11:48 AM CDT): BMI Follow-up includes: nutrition counseling, exercise counseling, and education provided. Start ozempic Assessment & Plan (07/06/2022 11:00 AM CDT): BMI Follow-up includes: nutrition counseling, exercise counseling and education provided. Assessment & Plan (06/06/2022 1:47 PM CDT): BMI Follow-up includes: nutrition counseling, exercise counseling and education provided. Assessment & Plan (05/31/2020 9:02 AM CDT): Obesity is unchanged. Discussed the patient's BMI. The BMI is above average; BMI management plan is completed. General weight loss/lifestyle modification strategies discussed (elicit support from others; identify saboteurs; non-food rewards, etc). Absolute anemia 2019 Overview (2019): Added automatically from request for surgery [id number] Recurrent major depressive disorder, in full rem ission 05/02/2019 Assessment & Plan (02/13/2024 9:42 AM DUCT LAYER HELPER): Controlled Continue paroxetine 20 mg daily Assessment & Plan (08/08/2023 8:00 AM CDT): Controlled Continue paroxetine 20 Assessment & Plan (06/22/2022 9:01 AM CDT): POA Continue Paxil Offer counseling Assessment & Plan (11/09/2021 1:44 PM CDT): Continue paxil 20 Assessment & Plan (05/31/2020 10:28 AM CDT): Paxil 20 mg daily. Assessment & Plan (05/02/2019 3:25 PM CDT): Continue Paxil 20 daily RLS (restless legs syndrome) 03/06/2017 Assessment & Plan (03/06/2017 9:28 AM DUCT LAYER HELPER): He is doing well on current regimen of Requip Hyperlipidemia 02/10/2016 Overview (07/19/2017): Hyperlipidemia, unspecified hyperlipidemia type Assessment & Plan (08/08/2023 7:57 AM CDT): Lipid panel today Continue atorvastatin 80 Assessment & Plan (06/22/2022 9:02 AM CDT): POA Continue Lipitor 80 mg daily Low fat diet Assessment & Plan (05/31/2020 10:27 AM CDT): Currently taking Repatha every 14 days for his cholesterol. Unable to tolerate statins. Assessment & Plan (05/02/2019 3:28 PM CDT): Continue Simvastatin 20 daily Repeat lipid panel Assessment & Plan (04/18/2018 12:33 PM CDT): Stable: Advised patient to maintain a low fat, low cholesterol diet and exercise. Reviewed LDL goal of less than 100 for diabetics and patients with vascular disease, LDL less than 130 for everyone else. Encouraged compliance with diet and any medication prescribed. As well as compliance with office follow up to monitor safety and effectiveness of diet and or medication. Patient verbalized understanding. CLL (chronic lymphocytic leukemia) ([facility]) 06/2016 Overview (12/05/2016): CLL (chronic lymphocytic leukemia): follows with Dr. Smart q 6 mos. (April and Oct.) Assessment & Plan (08/08/2023 8:00 AM CDT): Continue follow up with onc Assessment & Plan (07/06/2022 12:31 PM CDT): Following with Dr. Smart. Venetoclax is on hold for now. I have reviewed CBC and blood counts are stable. Assessment & Plan (06/06/2022 2:33 PM CDT): Chemotherapy On hold due to upcoming surgery. Assessment & Plan (11/09/2021 1:44 PM CDT): On Gazyva and Venetoclax Follow up with hem/onc Assessment & Plan (05/02/2019 3:29 PM CDT): Continue follow up with Dr. Smart Assessment & Plan (04/18/2018 11:15 AM CDT): CLL (chronic lymphocytic leukemia): follows with Dr. Berry stallworth 6 mos. (April and Oct.) Hypogammaglobulinemia 02/10/2016 Overview (07/19/2017): Hypogammaglobulinaemia, unspecified: IVIG monthly. Assessment & Plan (08/08/2023 8:00 AM CDT): Receives IVIG infusions Continue follow up with hematology Assessment & Plan (07/06/2022 12:28 PM CDT): Stable. Continue IVIG. Assessment & Plan (05/31/2020 10:27 AM CDT): Taking IVIG. Assessment & Plan (05/02/2019 3:28 PM CDT): Follows with Heme/Onc Receiving IVIG Assessment & Plan (04/18/2018 12:34 PM CDT): Hypogammaglobulinaemia, unspecified: IVIG monthly. Assessment & Plan (03/06/2017 9:29 AM DUCT LAYER HELPER): As per his current chief station engineer Leukopenia 02/10/2016 Overview (05/11/2016): Leukopenia, unspecified type Assessment & Plan (04/18/2018 12:34 PM CDT): Continues to follow with his oncologist. Assessment & Plan (03/06/2017 9:29 AM DUCT LAYER HELPER): Continues to follow with his oncologist blood work is due in middle April Right atrial thrombus 2015 Assessment & Plan (06/22/2022 9:00 AM CDT): POA Was on Eliquis at home- last dose Saturday 06/10 RA mass removed in OR with port a cath Await surgical pathology results Assessment & Plan (11/09/2021 1:41 PM CDT): Continue eliquis 5 bid Assessment & Plan (05/31/2020 10:28 AM CDT): On Eliquis 5 mg b.i.d. Chronic dyspnea 06/26/2012 Assessment & Plan (11/09/2021 1:46 PM CDT): Acutely worsened about 3 months ago Possible med side effect (dyspnea listed as possible adverse reaction for venetoclax) Less likely PE as he is anticoagulated but with presence of R atrial thrombus this could be a concern Another consideration would be CHF/ischemic cardiomyopathy. nuc stress test in August showed regional wall motion abnormalities with EF 45% while TTE showed EF 60%. Will discuss with Dr. No and Dr. Alexander Essential hypertension 03/21/2012 Overview (07/19/2017): Essential hypertension Assessment & Plan (05/21/2024 1:45 PM CDT): BP controlled Continue losartan 50, metoprolol XL 25 Assessment & Plan (02/13/2024 9:42 AM DUCT LAYER HELPER): BP well controlled Continue losartan 50 mg daily, metoprolol XL 25 mg daily, furosemide 20 mg daily. Assessment & Plan (08/08/2023 7:57 AM CDT): BP well controlled Continue losartan 25, metoprolol XL 25 Assessment & Plan (11/23/2022 5:10 PM CDT): BP well controlled Continue metoprolol XL 25 Assessment & Plan (07/06/2022 12:29 PM CDT): Stable. Continue metoprolol 25 mg b.i.d., Lasix 40 mg daily and potassium 40 mEq daily Assessment & Plan (06/06/2022 2:33 PM CDT): BP well controlled Continue coreg 3.125 BID, Entresto 24-26 Assessment & Plan (05/24/2022 8:03 AM CDT): BP well controlled Continue coreg 3.125 BID, Entresto 24-26 Assessment & Plan (11/09/2021 1:42 PM CDT): BP well controlled Continue amlodipine 10, entresto 24-26, coreg 3.125 BID Assessment & Plan (05/31/2020 10:27 AM CDT): BP 124/80 (BP Location: Right arm, Patient Position: Sitting) Pulse 71 Temp 36.7 C (98 F) Resp 14 Ht 180.3 cm (5' 10.98) Wt 104.6 kg (230 lb 9.6 oz) SpO2 98% BMI 32.18 kg/m On appropriate medication. Stable at this time. Assessment & Plan (05/02/2019 3:28 PM CDT): BP well controlled Continue losartan 50, amlodipine 10 Assessment & Plan (04/18/2018 12:33 PM CDT): Stable: Continue current medications, monitor closely and treat as clinical course dictates. Reviewed clinical desk top, past labs, diagnostic tests and consultations from other providers. Reviewed past medical, surgical and hospitalization history. Patient verbalizes understanding of plan of care and follow up plan. Assessment & Plan (03/06/2017 9:30 AM DUCT LAYER HELPER): Blood pressure has been adjusted with lower doses of losartan Assessment & Plan (11/28/2016 11:28 AM CDT): Stable continue current medication and keep blood pressure log. Resolved Problems Problem Noted Date Diagnosed Date Resolved Date Post-op pain 06/21/2022 08/08/2023 Assessment & Plan (06/22/2022 9:02 AM CDT): As expected post op Continue Tylenol and Oxycodone prn Pain improved after CT removed Utilize splinting technique Hematoma of right thigh 06/21/2022 07/0 04/2023 Assessment & Plan (07/06/2022 12:32 PM CDT): Improving. Assessment & Plan (06/22/2022 9:03 AM CDT): SVG harvest site bleeding post op that required manual pressure x several hours Now with hematoma to right thigh Continue Cefepime prophylaxis due to his history of CLL CAD, multiple vessel 06/13/2022 024 Acute non-recurrent pansinusitis 06/06/2022 08/08/2023 Assessment & Plan (06/06/2022 2:33 PM CDT): - will treat for bacterial sinusitis given duration of symptoms. -Encouraged sterile saline sinus rinses BID-TID. Continue Flonase daily -Take full course of abx. Even if symptoms are improving. -RTC if symptoms are worsening, fever, or symptoms are not improving. Coronary artery disease 05/26/2022 07/0 04/2023 Assessment & Plan (07/06/2022 12:30 PM CDT): Status post CABG ( SINGLETON to LAD, SVG to OM) on June 16. IDenia, GARAGE MECHANIC have personally reviewed pertinent inpatient and/or ED records, including discharge medications and [employer] if applicable. This patient's discharge medication list has been reviewed and reconciled with his outpatient medication list and has also been reviewed with patient and/or caregiver. I have noted any changes. Recovering well at home with home health and PT. Patient has not started cardiac rehab just yet. He follows up with surgeon and Cardiology soon. Continue current medications. Assessment & Plan (06/22/2022 9:04 AM CDT): S/p CABG (SINGLETON to LAD, SVG to OM) on 06/16 Continue post operative care Increase activity as tolerated PT/OT/OOB Continue ASA, statin and BB-titrate BB as BP/HR tolerates Continue aggressive diuresis as Lasix 40 IV BID Monitor I/O closely Echo prior to discharge Allergic sinusitis 05/24/2022 Assessment & Plan (05/24/2022 12:58 PM CDT): Recommend saline sinus rinse daily and flonase daily Call if no improvement in 1 week Acute diastolic congestive heart failure 05/15/2022 08/08/2023 Overview (05/15/2022): Added automatically from request for surgery [id number] Acute bilateral low back mary n with bilateral sciatica 05/31/2020 08/08/2023 Assessment & Plan (05/31/2020 10:29 AM CDT): Tizanidine 4 mg as needed for muscle spasms. Referral for physical therapy. Acute bilateral low back pain with sciatica 05/31/2020 11/09/2021 Screening for prostate cancer 05/31/2020 11/09/2021 Assessment & Plan (05/31/2020 10:28 AM CDT): The natural history of prostate cancer and ongoing controversy regarding screening and potential treatment outcomes of prostate cancer has been discussed with the patient. The meaning of a false positive PSA and a false negative PSA has been discussed. He indicates understanding of the limitations of this screening test and wishes to proceed with screening PSA testing. Coronary artery disease with angina pectoris 10/14/2023 Assessment & Plan (08/08/2023 7:57 AM CDT): S/p CABG Continue aspirin, statin Follow up with cardiology Assessment & Plan (06/06/2022 2:32 PM CDT): Continue Aspirin, statin, carvedilol. Follows with Dr. Alexander S/p Cardiac catheterization 05/30/2022 Significant LMCA stenosis. Mild atherosclerotic calcified diseasecin LAD and LCX. RCA is 40% stenosed in mid section. Has upcoming bypass scheduled for 06/14/2022 Assessment & Plan (11/09/2021 1:41 PM CDT): Continue aspirin, statin, coreg Follow up with cardiology Assessment & Plan (05/31/2020 10:26 AM CDT): Patient is not on aspirin because he takes Eliquis 5 mg daily. He is also on a beta-sarah an Arb and takes Repatha for his cholesterol. Encounter for Medicare annual wellness exam 05/30/2020 08/08/2023 Assessment & Plan (05/31/2020 10:27 AM CDT): Patient has been educated regarding preventative screening, immunizations, physical activity goes and management of chronic health conditions. Healthy lifestyle recommended, including regular exercise (daily aerobic & twice weekly resistance training), prudent diet, calcium & vitamin D supplementation, colonoscopy (starting @ age 50 for average risk person),, periodic blood pressure monitoring, & bone-density testing (starting @ age 65 in average-risk person). For males PSA beginning at the age of 45 if warranted. Coronary artery disease invo lving [place] coronary artery of [place] heart without angina pectoris 04/25/2020 05/31/2020 Left foot pain 09/03/2018 05/02/2019 Assessment & Plan (09/03/2018 10:53 AM CDT): Refer for plain films. Rest, elevate and ice 20 minutes per day. Patient cannot take NSAIDs. If no improvement may need to refer to Orthopedics. Patient verbalizes understanding. Osteoarthritis of carpometac arpal (CMC) joint of right thumb 07/30/2017 04/18/2018 Overview (07/30/2017): Added automatically from request for surgery [id number] Other pulmonary embolism wit hout acute cor pulmonale 03/06/2017 04/18/2018 Assessment & Plan (03/06/2017 9:28 AM DUCT LAYER HELPER): He continues to be treated by his oncologist, continues on Eliquis lifelong states he follows with Dr. Smart Moderate episode of recurren t major depressive disorder 03/06/2017 05/02/2019 Assessment & Plan (04/18/2018 12:35 PM CDT): Stable: Continue current medication. Assessment & Plan (03/06/2017 9:29 AM DUCT LAYER HELPER): Patient is doing very well on current medical regimen. Will continue with same treatment and monitor as clinical course dictates. Arthritis of right hand 03/06/201704/05 BMI 32.0-32.9,adult 12/19/2016 06/07/19 23 Assessment & Plan (05/24/2022 11:55 AM CDT): BMI Follow-up includes: nutrition counseling, exercise counseling and education provided. BMI 33.0-33.9,adult 11/28/2016 06/07/19 23 Overview (03/06/2017): BMI Follow-up includes: nutrition counseling, exercise counseling and education provided. Assessment & Plan (11/09/2021 11:42 AM CDT): BMI Follow-up includes: nutrition counseling, exercise counseling and education provided. Assessment & Plan (05/31/2020 10:25 AM CDT): Body mass index is 32.18 kg/m . BMI Follow-up includes: nutrition counseling, exercise counseling and education provided. Assessment & Plan (05/02/2019 10:08 AM CDT): BMI Follow-up includes: nutrition counseling, exercise counseling and education provided. Assessment & Plan (09/03/2018 10:32 AM CDT): BMI Follow-up includes: nutrition counseling, exercise counseling and education provided. Assessment & Plan (04/18/2018 10:51 AM CDT): BMI Follow-up includes: nutrition counseling, exercise counseling and education provided. Assessment & Plan (11/28/2016 10:09 AM CDT): BMI Follow-up includes: nutrition counseling, exercise counseling and education provided. Chronic renal insufficiency, stage 3 (moderate) 11/28/2016 03/06/2017 Assessment & Plan (11/28/2016 11:52 AM CDT): Patient has been holding his diclofenac and his losartan was decreased to 50 mg daily. Patient states he is unable to hold his diclofenac due to arthritis pain. He will restart his diclofenac. I will refer him to Nephrology. Patient will also hold his PPI and take [id number] Zantac instead. prison current use of ant icoagulant therapy 05/25/2016 12/23/2019 Assessment & Plan (04/18/2018 12:35 PM CDT): Continue Eliquis 5 mg daily. History of pulmonary embolism 02/10/2016 12/23/2019 Overview (12/05/2016): History of pulmonary embolism x 2: Has IVC filter and currently on Eliquis, follows with Dr. Leann No. Assessment & Plan (05/02/2019 3:28 PM CDT): Continue Eliquis Assessment & Plan (04/18/2018 12:33 PM CDT): History of pulmonary embolism x 2: Has IVC filter and currently on Eliquis, follows with Dr. Leann No. Congestive heart failure 06/18/2012 Chronic lymphoid leukemia in remission ([facility]/HCC) 09/22/2011 11/09/2021 Assessment & Plan (05/31/2020 10:26 AM CDT): Patient has been in remission for some time. He continues to get IVIG monthly as prescribed by his drop wire hanger. Doing well. Chronic lymphocytic leukemia of B-cell type 03/07/2011 05/31/2020 Encounters Date Type Department Care Team Description 08/26/2024 8:30 AM CDT Infusion [place] [address] [place] [address] Hypogammaglobulinemia (Primary Dx); CLL (chronic lymphocytic leukemia) (HCC) 07/29/2024 8:00 AM CDT Infusion [facility] [address] [place] [address] Hypogammaglobulinemia (Primary Dx); CLL (chronic lymphocytic leukemia) (HCC) 06/25/2024 10:30 AM CDT Infusion [place] [address] [place] [address] Hypogammaglobulinemia (Primary Dx); CLL (chronic lymphocytic leukemia) (HCC) 06/25/2024 10:00 AM CDT Office Visit [facility] Hematology [address] [place] [address] Katina Martin MD CLL (chronic lymphocytic leukemia) (HCC) 06/25/2024 9:30 AM CDT Lab [facility] [address] [address] CLL (chronic lymphocytic leukemia) ([facility]) from Last 3 Months Immunizations Immunization Administration Dates Next Due Influenza, Quadrivalent, Marylou l Culture-based MDCK, Preservative Free, Antibiotic Free, Intramuscular 12/02/2019,11/26/2018,11/13/2017,07/2016 Influenza, Quadrivalent, Hig h Dose, Preservative Free, Intrr 11/24/2022 11/25/2023 Influenza, Quadrivalent, Spl it, Intramuscular 11/08/2015 Influenza, Trivalent, High D ose, Split, Preservative Free, Intramuscular 11/21/2023 Influenza, Trivalent, Preser vative Free, Intramuscular 11/10/2014,11/12/2013,11/11/2012,11/05,11/29/2010,11/22/2009 Influenza, Unspecified 10/31/2021,11/05/2020, Pfizer SARS-CoV-2 Monovalent Vaccination (12+ Yrs) PURPLE 03/13/2020 Pneumococcal Conjugate PCV 13 04/22/2015 Pneumococcal Polysaccharide PPV23 04/18/2018 RSV Vaccine, Pref, Recombina nt, Subunit, Adjuvanted, PF, IM (Arexvy) 12/25/2022 RSV, Bivalent, Protein Subun it Rsvpref, Diluent (Abrysvo) 12/25/2022 Tdap 12/25/2022,03/21/2012 ZOSTER LIVE 04/22/2015 ZOSTER Recombinant 04/11/2023,12/20/2022 Surgical History Surgery Date Site/Laterality Comments PORT PLACEMENT CHEST >5 YEARS 09/09/2012 N/A LASIK THORACENTESIS several INSERT VENA CAVA FILTER 02/05/2009 - 02/04/2010 THUMB SURGERY 02/05/2017 - 02/04/2018 BRONCHOSCOPY CORONARY ARTERY BYPASS GRAFT April 2022 CARDIAC VALVE REPLACEMENT Repair tricuspid 04/27 Medical History Medical History Date Comments Pulmonary embolism (HCC) 2009, 2016 Hx Other Medical 2009 hemothorax in s etting of lovenox for PE Hypertension Hyperlipidemia Restless leg syndrome Cataracts, bilateral Port-A-Cath in place Depression Osteoarthritis of carpometac arpal (CMC) joint of right thumb 07/30/2017 Added automatically from [facility] [id number] Arthritis of right hand 03/06/2017 CLL (chronic lymphocytic cisco kemia) (HCC) 2005 s/p chemotherapy, IVIG GERD (gastroesophageal reflux disease) Heart disease April 2022 Family History Medical History Relation Name Comments Heart attack Brother Marcello Corbett Coronary artery disease Father Layton Corbett [place] nary artery disease - (Added by TW Conv) Diabetes Father Layton Corbett FHx: diabetes m ellitus - (Added by TW Conv) Heart disease Father Layton Corbett Heart disease; Cause of : Heart disease Hypertension Father Layton Corbett Arthritis Maternal Grandmother Jil Abdalla Colon polyps Mother Colon polyps; Transient ischemic attack Mother Other Other 1 No family histo ry of Cancer, colon; Other Other 2 No family histo ry of Crohn's disease; Other Other 3 No family histo ry of Ulcerative colitis; Anesthesia problems Neg Hx Relation Name Status Comments Brother Marcello Corbett Alive Father Layton Corbett (Age 77) Maternal Grandmother Jil Abdalla Mother Alive Other 1 Other 2 Other 3 Social History Tobacco Use Types Packs/Day Years Used Date Smoking Tobacco: Former Cigarettes 0.5 20 1 3 - 1992 Passive Smoke Exposure: Past Smokeless Tobacco: Never Tobacco Cessation:Counseling Given: Not Answered Alcohol Use Standard Drinks/Week Comments Yes 0 [...] materials from doctor or pharmacy Never 07/19/2022 [facility] Utilities Answer Date Recorded In the past 12 months has e [employer], oil, or water [employer] threatened to shut off services in your [...] week 09/25/2023 How often do you attend [facility] or roman catholic services? Never 09/25/2023 Do you belong to [...] time in the past 12 m [facility], were you homeless or living in a care home (including now)? No 09/25/2023 Personal Safety Answer Date Recorded Have you ever been in or are you currently in a harmful physical or emotional relationship or is someone making you feel afraid or unsafe? 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 Gender Identity Male 09/21/2020 8:05 AM CDT Sexual Orientation Straight 09/21/2020 8: 05 AM CDT Obstetrics History Last Filed Vital Signs Vital Sign Reading [...] 12.8 oz) 08/26/2024 8:35 AM CDT Height 180.3 cm (5' 10.98) 05/22/2024 10:21 AM CDT Body Mass Index 31.09 05/22/2024 10:21 AM CDT Plan of Treatment Health Maintenance Due Date Last Done Comments Covid-19 Vaccine (2023-2 5 season) 2023 11/10/2020, 04/05/2020, 03/13/2020 Well Visit 65+ 08/07/2024 08/08/2023, 06/2021, 05/31/2020, Additional history exists Influenza Vaccine (#1) 2024 , 11/24/2022, 10/31/2021, Additional history exists Hemoglobin A1C 11/21/2024 05/22/2024, 0 09/2024, 08/08/2023, Additional history exists Dilated Eye Exam 11/29/2024 11/30/2023, , 11/21/2021 Albumin Creatinine Ratio, Urine 02/12/2025 02/13/2024, 11/24/2022, 11/09/2021, Additional history exists Foot Exam 02/12/2025 02/13/2024, 11/06, 11/09/2021 Lipid Panel 04/15/2025 04/15/2024, 07/0 04/2023, 06/13/2022, Additional history exists Depression Screening 05/22/2025 05/22/2024, 02/13/2024, 08/08/2023, Additional history exists Fall Risk Assessment 05/22/2025 05/22/2024, 02/13/2024, 01/25/2024, Additional history exists eGFR 06/25/2025 06/25/2024, 020 05/2024, 01/15/2024, Additional history exists Colon Cancer Screening-Colonoscopy 11/09/2029 11/10/2019, 03/06/2014 DTaP/Tdap/Td Vaccine (3 - Td or Tdap) 12/25/2032 12/25/2022, 03/21/2012 Pneumococcal vaccine 65+ Completed 04/18/2018, 04/05 Colon Cancer Screening-CT Colonography Discontinued 11/10/2019, 03/06/2014 Colon Cancer Screening-DNA Stool Discontinued 11/10/19, 03/06/2014 Colon Cancer Screening-FIT Discontinued 11/10/2019, Colon Cancer Screening-Sigmoidoscopy Discontinued 11/10/2019, 03/06/2014 Hepatitis B Screening Completed 08/11/2021 Hepatitis C Screening Completed 08/11/2021 , 12/28/2020, 04/18/2018 Prostate Cancer Screening-PSA Discontinued , 06/16/2019, 04/18/2018 Zoster Vaccine Completed 04/11/2023, 12/06, 04/22/2015 Abdominal Aortic Aneurysm (A AA) Screen Completed 08/30/2023, 05/27/2022, 08/11/2021, Additional history exists Medical Devices Implanted Type Area Supervisor Assembly And Packing Device Identifier Shelf Expiration Date Model / Serial / Lot [employer] Carmelita-Edwa rds Physio 26mm Extended Length Handle Ergonomic [id number] - [id number] - [id number] Implanted:Qty: 1 on 06/16/2022 by Emery Angeles MD at [facility] Other - see comments N/A: Heart [employer] [id number] 03/08/2027 [id number] / [id number] / Description:TRICUSPID VALVE Ivc Filter Abdomen Port Chest Arthrex Inc Ar-[id number] Dx Swivelock Sl 3.5mm 8.5mm Fork Eyelet [place] Suture Sterile - [id number] Implanted:Qty: 1 on 08/07/2017 by Herbie Melendrez MD at [facility] Orthopedic Ivins Right: Wrist Arthrex Inc 05/05/2022 AR-[id number] / / [id number] Arthrex Inc Ar-8978p Dx Swivelock Sl 3.5mm 8.5mm Fork Eyelet [place] Suture Sterile - [id number] Implanted:Qty: 1 on 08/07/2017 by Herbie Melendrez MD at [facility] Right: Wrist [employer]rex Inc 05/05/2022 AR-8978P / / [id number] Ethicon Endo Surgery Ligaclip Extra 2.6mm Ligate Open Small Clip Internal Titanium Latex Free Lt100 - [id number] Implanted:Qty: 6 on 06/16/2022 by Emery Angeles MD at [facility] Ethicon Endo Surgery [id number] / / Ethicon Endo Surgery Ligaclip Extra 3.2mm Ligate Open Medium Clip Internal Titanium Latex Free Lt200 - [id number] Implanted:Qty: 2 on 06/16/2022 by Emery Angeles MD at [facility] Ethicon Endo Surgery LT200 / / Atricure Atriclip [place] ve 35mm 6mm Head Articulation Stiff Shaft [id number] - [id number] Implanted:Qty: 1 on 06/16/2022 by Emery Angeles MD at [facility] N/A: Heart Atricure 12/06/2024 [id number] / / [id number] Explanted Type Area Supervisor Assembly And Packing Device Identifier Shelf Expiration Date Model / Serial / Lot Arthrex Inc [id number] Drill Guide Bit Cannulated Guidewire 3mm 3.5mm 1.35mm Kit - [id number] Explanted:Qty: 1 on 08/07/2017 by Herbie Melendrez MD at [facility] Orthopedic Ivins Right: Wrist Arthrex Inc 02/04/2022 AR-8978DS-0 1 / / [id number] Procedures Procedure Name Priority Date/Time Associated Diagnosis Comments EGFR Routine 06/25/2024 9:33 AM CDT CLL (chronic lymphocytic leukemia) (HCC) DIFFERENTIAL AUTO Routine 06/25/2024 9:3 3 AM CDT CLL (chronic lymphocytic leukemia) (HCC) CBC WITH AUTO DIFFERENTIAL Routine 06/25/2024 9:33 AM CDT CLL (chronic lymphocytic leukemia) (HCC) COMPREHENSIVE METABOLIC PANEL Routine 06/25/2024 9:33 AM CDT CLL (chronic lymphocytic leukemia) (HCC) LACTATE DEHYDROGENASE Routine 06/25/2024 9:33 AM CDT CLL (chronic lymphocytic leukemia) (HCC) POCT HEMOGLOBIN A1C Routine 05/22/2024 10:29 AM CDT Type 2 diabetes mellitus with other circulatory complication, without long-term current use of insulin (HCC) LIPID PANEL Routine 04/15/2024 12:06 PM CDT Mixed hyperlipidemia ALBUMIN CREATININE RATIO, URINE Routine 02/13/2024 9:13 AM DUCT LAYER HELPER Type 2 diabetes mellitus with other circulatory complication, without long-term current use of insulin (HCC) HM DIABETES EYE EXAM Routine 11/30/2023 8:[address] CHEST ABDOMEN PELVIS W CONTRAST Schedule Routine, Read Routine (OP Routine) 08/30/2023 11:18 AM CDT Abdominal pain PSA SCREEN Routine 11/24/2022 12:56 PM CDT Encounter for screening for malignant neoplasm of prostate HEPATITIS PANEL, ACUTE Routine 08/11/2021 9:00 AM CDT CLL (chronic lymphocytic leukemia) (HCC) Hypogammaglobulinemi a COLONOSCOPY 11/10/2019 9:09 AM CDT from Last 3 Months or Most Recently Relevant to Health Maintenance Results * eGFR (06/25/2024 9:33 AM CDT) eGFR 63 >=60 mL/min/1. 73 m2 Comment: Interpretive Data Reference Interval Normal >/= [...] was last reviewed 2020. Testing performed by: [facility] [place] [address] Blood 06/25/2024 9:33 AM CDT 06/25/2024 9:33 AM CDT us Katina Martin MD LAB BLOOD ORDERABLES Final Resul t [facility] [id number] [address] Department [place] [address] * (ABNORMAL) Differential, auto (06/25/2024 9:33 AM CDT) Pathologist [facility] Neutrophil abs 2.55 1.50 - 6.50 K/cumm Comment:Testing performed by : [facility] [place] [address] Imm gran abs 0.01 0.00 - 0.10 K/cumm PALLAVI RIVERA Comment:Testing performed by : [facility] [place] [address] Lymphocyte abs 0.53(L) 0.80 - 3.30 K/cumm CERNER CH Comment:Testing performed by : [facility] [place] [address] Monocyte abs 0.41 0.20 - 0.80 K/cumm CERNER CH Comment:Testing performed by : [facility] [place] [address] Eosinophil abs 0.10 0.00 - 0.50 K/cumm CERNER CH Comment:Testing performed by : [facility] [place] [address] Basophil abs 0.02 0.00 - 0.10 K/cumm CERNER CH Comment:Testing performed by : [facility] [place] [address] Neutrophil pct 70.4 % CERNER CH Comment: Interpretive Data Percent cell count reference ranges are not reported, since discordance with absolute values may lead to misinterpretation of CBC data. Current Interpretive Data was last revised on 2017. Testing performed by: [facility] [place] [address] Imm gran pct 0.3 % CERNER CH Comment: Interpretive Data Percent cell count reference ranges are not reported, since discordance with absolute values may lead to misinterpretation of CBC data. Current Interpretive Data was last revised on 2017. Testing performed by: [facility] [place] [address] Lymphocyte pct 14.6 % CERNER CH Comment: Interpretive Data Percent cell count reference ranges are not reported, since discordance with absolute values may lead to misinterpretation of CBC data. Current Interpretive Data was last revised on 2017. Testing performed by: [facility] [place] [address] Monocyte pct 11.3 % CERNER CH Comment: Interpretive Data Percent cell count reference ranges are not reported, since discordance with absolute values may lead to misinterpretation of CBC data. Current Interpretive Data was last revised on 2017. Testing performed by: [facility] [place] [address] Eosinophil pct 2.8 % CERNER CH Comment: Interpretive Data Percent cell count reference ranges are not reported, since discordance with absolute values may lead to misinterpretation of CBC data. Current Interpretive Data was last revised on 2017. Testing performed by: [facility] [place] [address] Basophil pct 0.6 % CERLENIN Comment: Interpretive Data Percent cell count reference ranges are not reported, since discordance with absolute values may lead to misinterpretation of CBC data. Current Interpretive Data was last revised on 2017. Testing performed by: [facility] [place] [address] Blood 06/25/2024 9:33 AM CDT 06/25/2024 9:33 AM CDT Katina Martin MD LAB BLOOD ORDERABLES Final Resul t [facility] [id number] [address] Department [place] [address] * (ABNORMAL) CBC with auto differential (06/25/2024 9:33 AM CDT) WBC 3.62(L) 3.80 - 9.90 K/cumm Comment:Testing performed by : [facility] [place] [address] Hgb 12.6(L) 13.0 - 17.5 g/dL PALLAVI Comment:Testing performed by : [facility] [place] [address] Hct 38.2(L) 38.9 - 50.3 % PALLAVI Comment:Testing performed by : [facility] [place] [address] Plt 120(L) 150 - 400 K/cumm PALLAVI Comment:Testing performed by : [facility] [place] [address] MPV 9.2 9.1 - 12.3 fL PALLAVI CH Comment:Testing performed by : [facility] [place] [address] RBC 4.30 4.30 - 5.80 M/cumm CERLENIN CH Comment:Testing performed by : [facility] [place] [address] MCV 88.8 81.3 - 96.4 fL PALLAVI CH Comment:Testing performed by : [facility] [place] [address] MCH 29.3 27.1 - 33.3 pg PALLAVI RIVERA Comment:Testing performed by : [facility] [place] [address] MCHC 33.0 32.3 - 35.7 g/dL P[facility]I RIVERA Comment:Testing performed by : [facility] [place] [address] RDW CV 15.4(H) 11.1 - 14.9 % P[facility]I RIVERA Comment:Testing performed by : [facility] [place] [address] RDW SD 49.3(H) 35.7 - 48.1 fL P[facility]I RIVERA Comment:Testing performed by : [facility] [place] [address] NRBC abs 0.00 0.00 - 0.01 K/cumm PALLAVI RIVERA Comment:Testing performed by : [facility] [place] [address] ANC Prelim 2.55 1.50 - 6.50 K/cumm PALL[facility]I RIVERA Comment: Interpretive Data The rapid ANC is a preliminary automated count and may vary from the final ANC (Neut Abs) reported in the WBC differential that follows. Current interpretive data was last revised 2024. Testing performed by: [facility] [place] [address] Blood 06/25/2024 9:33 AM CDT 06/25/2024 9:33 AM CDT Katina Martin MD LAB BLOOD ORDERABLES Final Resul t [facility] [address] [address] Department [place] [address] * Lactate dehydrogenase (LD) (06/25/2024 9:33 AM CDT) Lactate dehydrogenase (LDH) 240 100 - 250 Units/L Comment:Testing performed by : [facility] [place] [address] Blood 06/25/2024 9:33 AM CDT 06/25/2024 9:33 AM CDT us Katina Martin MD LAB BLOOD ORDERABLES Final Resul t [facility] [address] Department [place] [address] * Comprehensive metabolic panel (06/25/2024 9:33 AM CDT) Sodium 140 135 - 145 mmol/L Comment:Testing performed by : [facility] [place] [address] Potassium, pl 4.8 3.3 - 4.9 mmol/L CERNER Comment:Testing performed by : [facility] [place] [address] Chloride 103 97 - 110 mmol/L CERNER Comment:Testing performed by : [facility] [place] [address] CO2 26 22 - 32 mmol/L CERNER CH Comment:Testing performed by : [facility] [place] [address] Anion gap 11 2 - 15 mmol/L [facility] Comment:Testing performed by : [facility] [place] [address] BUN 21 6 - 25 mg/dL CERNER Comment:Testing performed by : [facility] [place] [address] Creatinine 1.21 0.80 - 1.30 mg/dL CERNER Comment:Testing performed by : [facility] [place] [address] Glucose 148 70 - 199 mg/dL [facility] Comment: Interpretive Data Fasting glucose >/= 126 [...] classification and Diagnosis of Diabetes Diabetes Care 202; 46: S19-S40. Current interpretive data was last revised 2022. Testing performed by: [facility] [place] [address] Calcium 9.3 8.5 - 10.3 mg/dL CERNER CH Comment:Testing performed by : [facility] [place] [address] Bilirubin, total 0.6 0.1 - 1.2 mg/dL CERNER CH Comment:Testing performed by : [facility] [place] [address] Protein, pl 6.6 6.5 - 8.5 g/dL CERNER CH Comment:Testing performed by : [facility] [place] [address] Albumin 4.4 3.5 - 5.0 g/dL CERNER CH Comment:Testing performed by : [facility] [place] [address] Alk phos 93 40 - 130 Units/L CERNER CH Comment:Testing performed by : [facility] [place] [address] ALT 35 7 - 55 Units/L CERNER CH Comment:Testing performed by : [facility] [place] [address] AST 33 10 - 50 Units/L CERNER CH Comment:Testing performed by : [facility] [place] [address] Blood 06/25/2024 9:33 AM CDT 06/25/2024 9:33 AM CDT Katina Martin MD LAB BLOOD ORDERABLES Final Resul t [facility] [id number] [address] Department [place] [address] * POCT hemoglobin A1c (05/22/2024 10:29 AM CDT) Pathologist [facility] Hemoglobin A1C, POC 5.7 4.0 - 5.6 % Blood 05/22/2024 10:2 9 AM CDT Nisreen Gayle MD POINT OF CARE TEST ORD ERABLES Final Result * Lipid panel (04/15/2024 12:06 PM CDT) Cholesterol 126 30 - 199 mg/dL Comment: Interpretive Data Ages < or = 19 years Acceptable: <170 mg/dL Borderline high: 170-199 mg/dL High: >or= 200 mg/dL Ages > or = 20 years Desirable: <200 mg/dL Borderline high: 200-239 mg/dL High: >or= 240 mg/dL Literature References: 1. Expert Panel on Integrated Guidelines for Cardiovascular Health and Risk Reduction in Children and Adolescents. Pediatrics 2011;128:S213 2. NCEP Expert Panel. Circulation 2004;110:227 Current Interpretive Data was last revised on 2017. Testing performed by: [address] [address] Triglycerides 91 <=149 mg/dL PALLAVI Comment: Interpretive Data Ages < or = 9 years Acceptable: <75 mg/dL Borderline high: 75-99 mg/dL High: >or= 100 mg/dL Ages 10 to 20 years Acceptable: <90 mg/dL Borderline high: 90-129 mg/dL High: >or= 130 mg/dL Ages > or = 20 years Desirable: <150 mg/dL Borderline high: 150-199 mg/dL High: 200-499 mg/dL Very high: >or= 499 mg/dL Literature References: 1. Expert Panel on Integrated Guidelines for Cardiovascular Health and Risk Reduction in Children and Adolescents. Pediatrics 2011;128:S213 2. NCEP Expert Panel. Circulation 2004;110:227 Current Interpretive Data was last revised on 2017. Testing performed by: [address] [address] HDL 48 >=40 mg/dL PALL[facility]I Comment: Interpretive Data Ages < or = 19 years Acceptable: >45 mg/dL Borderline low: 40-45 mg/dL Low: <40 mg/dL Ages > or = 20 years Desirable: >or= 60 mg/dL Low: <40 mg/dL Literature References: 1. Expert Panel on Integrated Guidelines for Cardiovascular Health and Risk Reduction in Children and Adolescents. Pediatrics 2011;128:S213 2. NCEP Expert Panel. Circulation 2004;110:227 Current Interpretive Data was last revised on 2017. Testing performed by: [address] [address] LDL, calculated 61 <=129 mg/dL PALLAVI Comment: Interpretive Data Ages < or = 19 years Acceptable: <110 mg/dL Borderline high: 110-129 mg/dL High: >or= 130 mg/dL Ages > or = 20 years Optimal: <100 mg/dL Near optimal: 100-129 mg/dL Borderline high: 130-159 mg/dL High: >160 mg/dL Calculated using the Isaac LDL-C estimating equation. This equation was implemented on 2023. Prior to this date LDL-C was estimated using the Friedewald equation. Literature References: 1. Expert Panel on Integrated Guidelines for Cardiovascular Health and Risk Reduction in Children and Adolescents. Pediatrics 2011;128:S213 2. NCEP Expert Panel. Circulation 2004;110:227 3. Isaac Morocho et al. ZHENG Cardiol. 2020 June 05;5(5):540-548. doi: 10.1001/jamacardio.2020.0013 Current Interpretive Data was last revised on 2023. Testing performed by: [address] [address] Non-HDL Cholesterol 78 mg/dL PALLAVI Comment: Interpretive Data Ages < or = 19 years Acceptable: <120 mg/dL Borderline high: 120-144 mg/dL High: >145 mg/dL Ages > or = 20 years When triglycerides are >200 mg/dL, Non-HDL cholesterol is a secondary target of therapy with treatment goals that are 30 mg/dL greater than the LDL cholesterol target. Literature References: 1. Expert Panel on Integrated Guidelines for Cardiovascular Health and Risk Reduction in Children and Adolescents. Pediatrics 2011;128:S213 2. NCEP Expert Panel. Circulation 2004;110:227 Current Interpretive Data was last revised on 2017. Testing performed by: [address] [address] Chol/HDL ratio 3 PALLAVI Comment:Testing performed by : [address] [address] Blood 04/15/2024 12:0 6 PM CDT 04/15/2024 12:55 PM CDT us Krish Alexander MD LAB BLOOD ORDERABLES Final Res ult Performing Organization Address City/[facility]/ZIP Co de Phone Number PALLAVI [address] [facility] Department [place] [address] * Albumin Creatinine Ratio, Urine (02/13/2024 9:13 AM DUCT LAYER HELPER) Albumin Ur 26.7 mg/L Comment: Interpretive Data No reference range established. Current interpretive data was last revised 2018. Testing performed by: [facility], [address] [place] [address]., [address] Creatinine Ur 183.3 mg/dL PALLAVI PEARCE Comment: Interpretive Data No reference range established. Current interpretive data was last revised 2018. Testing performed by: [facility], [address] [place] [address]., [address] Albumin Creatinine Ratio, Ur 15 1 - 29 mg/g PALLAVI PEARCE Comment:Testing performed by : [facility], [address] [place] [address]., [address] Urine 02/13/2024 9:13 AM DUCT LAYER HELPER 02/13/2024 10:49 AM DUCT LAYER HELPER us Sarah Webster NP LAB URINE ORDERABLES Final R esult Performing Organization Address [facility] Co de Phone Number P[facility]I [facility] [address] [facility] Department [place] [address] * HM DIABETES EYE EXAM (11/30/2023 8:43 AM CDT) SCRIBED DIABETIC DILATED EYE EXAM Normal us Historical Provider HEALTH MAINTENANCE Final Result * CT Chest Abdomen Pelvis W Contrast (08/30/2023 11:18 AM CDT) Anatomical Region Laterality Modality Body N/A Computed Tomogra phy 08/30/2023 4:47 PM CDT Impressions 08/30/2023 4:47 PM CDT 1. STATUS POST MEDIAN STERNOTOMY AND TRICUSPID VALVE REPAIR. 2. CORONARY ARTERY DISEASE AND AORTIC ATHEROSCLEROSIS. 3. BILATERAL PLEURAL CALCIFICATION AND CHRONIC SMALL PLEURAL EFFUSIONS. 4. IVC FILTER IN PLACE. 5. NO INFLAMMATORY LESION IS SEEN. Electronically signed by: Jin Lo M.D. Narrative 08/30/2023 4:47 PM CDT EXAMINATION: CT CHEST ABDOMEN PELVIS W CONTRAST DATE: 08/30/2023 12:00 PM HISTORY: Abdominal pain. COMPARISON: CT chest from 02/06/[address] abdomen/pelvis from 08/11/2021. TECHNIQUE: Transaxial computed tomographic images of the chest, abdomen, and pelvis were obtained following the intravenous administration of 68 mL Optiray 350. Multiplanar coronal and sagittal images were reformatted. CT CHEST: There are postsurgical changes from a median sternotomy and tricuspid valve repair. The heart size is normal. There is coronary artery calcification. There are atherosclerotic changes in the thoracic aorta. No evidence of mediastinal or hilar adenopathy. The lungs are well-expanded. No evidence of a confluent pulmonary infiltrate. There is bilateral pleural calcification. There are chronic small pleural effusions bilaterally. CT ABDOMEN AND PELVIS: The liver, gallbladder, pancreas and spleen appear normal. No evidence of free air or free fluid in the abdomen. The kidneys and adrenal glands are normal. No evidence retroperitoneal adenopathy. There are atherosclerotic changes in the abdominal aorta. There is an IVC filter in place. The appendix is normal. No evidence of bowel obstruction. No inflammatory lesion is seen. The urinary bladder is normal. There is degenerative disc disease at L5-S1. Procedure Note Jin Lo MD - 08/30/2023 EXAMINATION: CT CHEST ABDOMEN PELVIS W CONTRAST DATE: 08/30/2023 12:00 PM HISTORY: Abdominal pain. COMPARISON: CT chest from 02/06/[address] abdomen/pelvis from 08/11/2021. TECHNIQUE: Transaxial computed tomographic images of the chest, abdomen, and pelvis were obtained following the intravenous administration of 68 mL Optiray 350. Multiplanar coronal and sagittal images were reformatted. CT CHEST: There are postsurgical changes from a median sternotomy and tricuspid valve repair. The heart size is normal. There is coronary artery calcification. There are atherosclerotic changes in the thoracic aorta. No evidence of mediastinal or hilar adenopathy. The lungs are well-expanded. No evidence of a confluent pulmonary infiltrate. There is bilateral pleural calcification. There are chronic small pleural effusions bilaterally. CT ABDOMEN AND PELVIS: The liver, gallbladder, pancreas and spleen appear normal. No evidence of free air or free fluid in the abdomen. The kidneys and adrenal glands are normal. No evidence retroperitoneal adenopathy. There are atherosclerotic changes in the abdominal aorta. There is an IVC filter in place. The appendix is normal. No evidence of bowel obstruction. No inflammatory lesion is seen. The urinary bladder is normal. There is degenerative disc disease at L5-S1. IMPRESSION: 1. STATUS POST MEDIAN STERNOTOMY AND TRICUSPID VALVE REPAIR. 2. CORONARY ARTERY DISEASE AND AORTIC ATHEROSCLEROSIS. 3. BILATERAL PLEURAL CALCIFICATION AND CHRONIC SMALL PLEURAL EFFUSIONS. 4. IVC FILTER IN PLACE. 5. NO INFLAMMATORY LESION IS SEEN. Electronically signed by: Jin Lo M.D. Nisreen Gayle MD IMG CT PROCEDURES Ese l Result * PSA screen (11/24/2022 12:56 PM CDT) Pathologist [facility] PSA-Total 1.06 <=6.20 ng/mL Comment: Interpretive Data AGE SEX REFERENCE INTERVAL 0 minutes-150 years Female None 0 minutes-49 years Male None 50-59 years Male 0-3.90 60-69 years Male 0-5.40 70-79 years Male 0-6.20 80-150 years Male 0-6.20 The Xi PSA Total assay procedure was used. Results from different manufacturers or methods may not be comparable. Serial testing should be performed using the same method. Current interpretive data last revised 21. Blood 11/24/2022 12:5 6 PM CDT 11/24/2022 12:56 PM CDT Nisreen Gayle MD LAB BLOOD ORDERABLES F inal Result [facility] [id number] [facility]. [employer] [place] [employer] [place] [address] * Hepatitis panel, acute (08/11/2021 9:00 AM CDT) Pathologist [facility] Hep A IgM Nonreactive Nonreactive [facility] Comment: Interpretive Data: If Hep A IgM Ab is reported as Equivocal, a new sample should be drawn in two weeks for testing. Current interpretive data was last revised on 19. Hep B core IgM Nonreactive Nonreactive [facility] Comment: Interpretive Data If HepB Core IgM Ab is reported as Equivocal, a new sample should be drawn in two weeks for testing. Current interpretive data was last revised on 19. Hep C Ab Nonreactive Nonreactive [facility] Comment: Interpretive Data Nonreactive: Antibodies to HCV not detected. Does NOT exclude the possibility of recent exposure to HCV. Equivocal: Equivocal for HCV antibodies. Supplemental molecular testing will be automatically performed to determine infection status in accordance with current CDC screening recommendations. Reactive: Positive for HCV antibodies. This may represent current or past HCV infection. Supplemental molecular testing will be automatically performed to determine current infection status in accordance with current CDC screening recommendations. Interpretive data was last revised on 2019. HepBsAg Nonreactive Nonreactive [facility] Blood 08/11/2021 9:00 AM CDT 08/11/2021 11:08 AM CDT Leann No MD LAB MICROBIOLOGY - GENERAL O RDERABLES Final Result [facility] [id number] [facility] Department [place] [address] * COLONOSCOPY (11/10/2019 9:09 AM CDT) Anatomical Region Laterality Modality Other Narrative Procedure Note Nieves Bob MD - 11/10/2019 9:09 AM CDT ENDOSCOPY LAB Patient Name: Jack Corbett Procedure Date: 11/10/2019 9:09 AM Date of : 1950 Admit Type: Outpatient Age: 69 Gender: Male Attending MD: Nieves Bob M.D. Room: [facility] ENDOSCOPY ROOM 01 Note Status: Finalized Procedure: Colonoscopy Indications: Iron deficiency anemia Providers: Nieves Bob M.D. Referring MD: Shonda Smart M.D. Medicines: Monitored Anesthesia Care Complications: No immediate complications. Estimated blood loss:Minimal. Estimated Blood Loss: Estimated blood loss was minimal. Procedure: Pre-Anesthesia Assessment: - Immediately prior to administration of medications,the patient was re-assessed for adequacy to receivesedatives. The benefits, risks and alternatives of the procedureand sedation were discussed and informed consent wasobtained. All questions were answered. Please refer to the signed informed consent document in the medical record. Thescope was passed under direct vision. The [id number] introduced through the anus and advanced to theterminal ileum. The colonoscopy was performed withoutdifficulty. The patient tolerated the procedure well. The qualityof the bowel preparation was evaluated using the BBPS([place] Bowel Preparation Scale) with scores of: Right Colon =3, Transverse Colon = 3 and Left Colon = 3 (entire mucosa seen well with no residual staining, small fragments of stool or opaque liquid). The total BBPS score equals9. Findings: The digital rectal exam was normal. The terminal ileum appeared normal. A 8 mm polyp was found in the cecum adjacent to the appendicealorifice. The polyp was sessile. The polyp was lifted with 5 cc Eleview andthen removed with a cold snare and cold biopsy forceps. Resection and retrieval were complete. Two sessile polyps were found in the ascending colon. This included a6 mm polyp removed with cold snare, and a 5 mm polyp removed with cold snare and cold biopsy forceps. Resection and retrieval werecomplete. Scattered diverticula were found in the sigmoid colon. Internal hemorrhoids were found during retroflexion. The hemorrhoids were small. Impression: - The examined portion of the ileum was normal. - One 8 mm polyp in the cecum, removed with a coldsnare. Resected and retrieved. - Two 5 to 6 mm polyps in the ascending colon, removed with a cold snare. Resected and retrieved. - Diverticulosis in the sigmoid colon. - Internal hemorrhoids. Recommendation: - Follow-up biopsy results. Please call the office ifyou do not receive results in 2 weeks. Timing of repeat colonoscopy to be determined after biopsy review. - [facility] The signs and symptoms of potential delayedcomplications were discussed with the patient. Return to normal activities tomorrow. Written discharge instructionswere provided to the patient. - Contact Information: During normal business hours - Please call the Nurse Coordinator: [phone] After hours, evening, nights, weekends and holidays - Please call the hospital scow derrick operator at and ask for the GI fellow supervisor carbon paper coating. Electronically by Dr Nieves Bob Nieves Bob M.D. 11/10/2019 9:47:49 AM Number of Addenda: 0 Note Initiated On: 11/10/2019 9:09 AM Nieves Bob MD ENDOSCOPY PROCEDURES Final Result from Last 3 Months or Most Recently Relevant to Health Maintenance Insurance MEDICARE MEDICARE MEDICARE [facility] MEDICARE SUPPLEMENT MEDICARE COMMERCIAL GENERIC MEDICARE [employer] Member Subscriber Plan / Payer (Ef fective 2017-Present) Name:Jack Corbett Member ID:[id number] Relation to Subscriber:Self Name:Jack Corbett Subscriber ID:[id number] Payer ID:[id number] Type:COMMERCIAL Address: [facility] [id number] [place] [address] Advance Directives For more information, please contact: [phone] * Full Code (Latest Code Status on File) Date Activated Date Inactivated Comments 01/25/2024 7:21 AM 01/26/2024 4:38 AM * Full Code Date Activated Date Inactivated Comments 06/13/2022 12:00 PM 06/24/2022 6:47 PM * Full Code Date Activated Date Inactivated Comments 05/26/2022 6:54 PM 06/01/2022 5:15 PM * Full Code Date Activated Date Inactivated Comments 05/26/2022 8:58 AM 05/26/2022 1:42 PM * Full Code Date Activated Date Inactivated Comments 11/10/2019 7:57 AM 11/10/2019 2:51 PM Care Teams Blueprint Duplicator Relationship Specialty [place] [id number] [place] [address] PCP - General Internal Medicine 05/02/19 [place] [id number] [place] [address] Surgeon Orthopedic Surgery 07/30/17 [place] [id number] [place] [address] Consulting Physician Cardiothoracic Surgery 06/24/22 Miscellaneous, Not In File 06/24/22
--- OUTSIDE RECORDS SUMMARY | 2024-08-26 21:48 | XMS_ITS ---
Author Organization [facility] Address [address] [id number] Care Team Providers Care Dental Officer Name Role Phone Herbie Melendrez MD Unavailable [phone] Nisreen Gayle MD Primary Care Provider Emery Angeles MD Unavailable Miscellaneous, Not In File Unavailable Unava ilable Active Problems Problem Noted Date Diagnosed Date Subclinical hypothyroidism 02/13/2024 Assessment & Plan (02/13/2024 9:45 AM BINDERY MACHINE OPERATOR): Will check TSH today. If normal could [...] daily Assessment & Plan (02/13/2024 9:44 AM BINDERY MACHINE OPERATOR): Lab Results Component Value Date HGBA1C 7.5 [...] 05/31/2020 Assessment & Plan (02/13/2024 8:08 AM BINDERY MACHINE OPERATOR): BMI Follow-up includes: nutrition counseling, exercise counseling, [...] (2019): Added automatically from request for surgery [id number] Recurrent major depressive disorder, in full rem ission 05/02/2019 Assessment & Plan (02/13/2024 9:42 AM BINDERY MACHINE OPERATOR): Controlled Continue paroxetine 20 mg daily Assessment [...] 03/06/2017 Assessment & Plan (03/06/2017 9:28 AM BINDERY MACHINE OPERATOR): He is doing well on current regimen [...] Patient verbalized understanding. CLL (chronic lymphocytic leukemia) ([facility]) 06/2016 Overview (12/05/2016): CLL (chronic lymphocytic leukemia): follows with Dr. Berry stallworth 6 mos. (April and Oct.) Assessment & [...] Smart q 6 mos. (April and Oct.) Hypogammaglobulinemia 02/10/2016 [...] monthly. Assessment & Plan (03/06/2017 9:29 AM BINDERY MACHINE OPERATOR): As per his current scribing machine operator Leukopenia 02/10/2016 Overview (05/11/2016): Leukopenia, unspecified type Assessment & Plan (04/18/2018 12:34 PM CDT): Continues to follow with his oncologist. Assessment & Plan (03/06/2017 9:29 AM BINDERY MACHINE OPERATOR): Continues to follow with his oncologist blood [...] 25 Assessment & Plan (02/13/2024 9:42 AM BINDERY MACHINE OPERATOR): BP well controlled Continue losartan 50 mg [...] plan. Assessment & Plan (03/06/2017 9:30 AM BINDERY MACHINE OPERATOR): Blood pressure has been adjusted with lower doses of losartan Assessment & Plan (11/28/2016 11:28 AM CDT): Stable continue current medication and keep blood pressure log. Current Treatment and Therapy Plans 2023 - 2024 Influenza Vaccine ([facility])* Plan Start Date: 11/21/2023 Plan Provider:Katina Martin MD Linked Problems CLL (chronic lymphocytic cisco kemia) (HCC) Treatment Medications No medications scheduled. IMMUNE GLOBULIN (GAMUNEX-C/GAMMAKED)* Plan Start Date:07/23/2017 Plan Provider:Katina Martin MD Linked Problems CLL (chronic lymphocytic cisco kemia) (HCC)Hypogammaglobulinemia Treatment Medications immune globulin (GAMUNEX-C,G AMMAKED) 10 % Past Treatment and Therapy Plans Oncology Chemotherapy Treatment Plan Name Start Date Discontinue Date Treatment Medications Discontinue Reason Plan Provider Cycles oBINutuzumab / Venetoclax - CLL 08/18/19 22 08/14/2024 oBINutuzumab (GAZYVA) IVPB 1,000 mg in 290 mLoBINutuzumab (GAZYVA) IVPB 100 mg in 100 mLoBINutuzumab (GAZYVA) IVPB 900 mg in 250 mLvenetoclax (VENCLEXTA) Automatic discontinuation of dormant plans Leann No MD 7 of 12 cycles started Lifetime Dose Tracking * Chemical Lifetime Dose Automatic Entry Manual Entr y Air kerma at the reference point (Ka,r) 2,836 mGy 0 mGy 2,836 mGy DLP 8,977 mGycm 8,977 mGycm 0 mGycm Resolved Problems Problem Noted Date Diagnosed Date Resolved Date Post-op pain 06/21/2022 08/08/2023 Assessment & Plan (06/22/2022 9:02 AM CDT): As expected post op Continue Tylenol and Oxycodone prn Pain improved after CT removed Utilize splinting technique Hematoma of right thigh 06/21/202204/2023 Assessment & Plan (07/06/2022 12:32 PM CDT): [...] symptoms are not improving. Coronary artery disease 05/26/202204/2023 Assessment & Plan (07/06/2022 12:30 PM CDT): Status post CABG ( SINGLETON to LAD, SVG to OM) on June 16. IDenia, METAL DRILLING MACHINE OPERATOR have personally reviewed pertinent inpatient and/or ED [...] (05/15/2022): Added automatically from request for surgery [id number] Acute bilateral low back mary n with [...] if warranted. Coronary artery disease invo lving pamunkey coronary artery of pamunkey heart without angina pectoris 04/25/2020 05/31/2020 Left [...] (07/30/2017): Added automatically from request for surgery [id number] Other pulmonary embolism wit hout acute cor pulmonale 03/06/2017 04/18/2018 Assessment & Plan (03/06/2017 9:28 AM BINDERY MACHINE OPERATOR): He continues to be treated by his oncologist, continues on Eliquis lifelong states he follows with Dr. Smart Moderate episode of recurren t major depressive disorder 03/06/2017 05/02/2019 Assessment & Plan (04/18/2018 12:35 PM CDT): Stable: Continue current medication. Assessment & Plan (03/06/2017 9:29 AM BINDERY MACHINE OPERATOR): Patient is doing very well on current [...] will also hold his PPI and take [id number] Zantac instead. assisted current use of ant icoagulant therapy 05/25/2016 [...] failure 06/18/2012 Chronic lymphoid leukemia in remission ([facility]CC) 09/22/2011 11/09/2021 Assessment & Plan (05/31/2020 10:26 AM CDT): Patient has been in remission for some time. He continues to get IVIG monthly as prescribed by his rehab tech. Doing well. Chronic lymphocytic leukemia of B-cell type 03/07/2011 05/31/2020
--- OUTSIDE RECORDS SUMMARY | 2024-08-26 21:48 | XMS_ITS | Referral Summary ---
Author Organization [facility] Address [address] [place] [address] Care Team Providers Care Cyber Security Systems Engineer Name Role Phone Herbie Melendrez MD Unavailable Nisreen Gayle MD Primary Care Provider Emery Angeles MD Unavailable [phone] Miscellaneous, Not In File Unavailable Unava ilable Encounters Date Type Department Care Team Description 08/26/2024 8:30 AM CDT Infusion [facility] at [address] [address] Hypogammaglobulinemia (Primary Dx); CLL (chronic lymphocytic leukemia) ([facility]) 07/29/2024 8:00 AM CDT Infusion [place] [address] [place] [address] Hypogammaglobulinemia (Primary Dx); CLL (chronic lymphocytic leukemia) ([facility]) 06/25/2024 10:30 AM CDT Infusion [place] [address] [place] [address] Hypogammaglobulinemia (Primary Dx); CLL (chronic lymphocytic leukemia) ([facility]) 06/25/2024 9:30 AM CDT Lab [facility] Lab [address] [place] [phone] CLL (chronic lymphocytic leukemia) ([facility]) 06/25/2024 10:00 AM CDT Office Visit [facility] Hematology [address] [place] [phone] Katina Martin MD CLL (chronic lymphocytic leukemia) ([facility]) from Last 3 Months Allergies Active Allergy Reactions Criticality Noted Date Comments Adhesive Photosensitivity Low Atorvastatin Rash Medium 01/11/2020 Bacitracin Zinc-Polymyxin B Blisters High 12/12/2021 Benzalkonium Chloride Rash Medium 12/12/2019 Canalou Chloride Rash Medium 12/12/2019 Cocamidopropyl Betaine Rash [...] Fragrance Mix II -- patch test 1+ Xudparc-Jju-Sxx Reductase Inhibitors Rash Medium 10/15/2019 Medications cetirizine [...] 02/13/2024 Assessment & Plan (02/13/2024 9:45 AM BEVERAGE DISTILLER): Will check TSH today. If normal could [...] daily Assessment & Plan (02/13/2024 9:44 AM BEVERAGE DISTILLER): Lab Results Component Value Date HGBA1C 7.5 [...] 05/31/2020 Assessment & Plan (02/13/2024 8:08 AM BEVERAGE DISTILLER): BMI Follow-up includes: nutrition counseling, exercise counseling, [...] (2019): Added automatically from request for surgery [id number] Recurrent major depressive disorder, in full rem ission 05/02/2019 Assessment & Plan (02/13/2024 9:42 AM BEVERAGE DISTILLER): Controlled Continue paroxetine 20 mg daily Assessment [...] 03/06/2017 Assessment & Plan (03/06/2017 9:28 AM BEVERAGE DISTILLER): He is doing well on current regimen [...] Patient verbalized understanding. CLL (chronic lymphocytic leukemia) ([facility]) 06/2016 Overview (12/05/2016): CLL (chronic lymphocytic [...] monthly. 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 Assessment & Plan (03/06/2017 9:29 AM BEVERAGE DISTILLER): Continues to follow with his oncologist blood [...] 25 Assessment & Plan (02/13/2024 9:42 AM BEVERAGE DISTILLER): BP well controlled Continue losartan 50 mg [...] plan. Assessment & Plan (03/06/2017 9:30 AM BEVERAGE DISTILLER): Blood pressure has been adjusted with lower [...] symptoms are not improving. Coronary artery disease 05/26/20220 04/2023 Assessment & Plan (07/06/2022 12:30 PM CDT): Status post CABG ( SINGLETON to LAD, SVG to OM) on June 16. I, Denia Ngo NP have personally reviewed pertinent inpatient and/or ED [...] (05/15/2022): Added automatically from request for surgery [id number] Acute bilateral low back mary n with [...] if warranted. Coronary artery disease invo lving the [place] coronary artery of the [place] heart without angina pectoris 04/25/2020 05/31/2020 Left [...] (07/30/2017): Added automatically from request for surgery [id number] Other pulmonary embolism wit hout acute cor pulmonale 03/06/2017 04/18/2018 Assessment & Plan (03/06/2017 9:28 AM BEVERAGE DISTILLER): He continues to be treated by his oncologist, continues on Eliquis lifelong states he follows with Dr. Smart Moderate episode of recurren t major depressive disorder 03/06/2017 05/02/2019 Assessment & Plan (04/18/2018 12:35 PM CDT): Stable: Continue current medication. Assessment & Plan (03/06/2017 9:29 AM BEVERAGE DISTILLER): Patient is doing very well on current [...] will also hold his PPI and take [id number] Zantac instead. [facility] current use of ant icoagulant therapy 05/25/2016 [...] failure 06/18/2012 Chronic lymphoid leukemia in remission ([facility]/HCC) 09/22/2011 11/09/2021 Assessment & Plan (05/31/2020 10:26 AM CDT): Patient has been in remission for some time. 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 Doing well. Chronic lymphocytic leukemia of B-cell type 03/07/2011 05/31/2020 Immunizations Immunization Administration Dates Next Due Influenza, [...] 12/25/2022,03/21/2012 ZOSTER LIVE 04/22/2015 ZOSTER Recombinant 04/11/2023,12/20/2022 Social History Tobacco Use Types Packs/Day Years [...] materials from doctor or pharmacy Never 07/19/2022 [facility] Utilities Answer Date Recorded In [...] often do you attend chur ch or adventist services? Never 09/25/2023 Do you belong to any clubs o r organizations such as mormon groups, unions, fraternal or athletic groups, or [...] any time in the past 12 m [facility], were you homeless or living in a custodial (including now)? No 09/25/2023 Personal Safety Answer Date Recorded Have you ever been in or are you currently in a harmful physical or emotional relationship or is someone making you feel afraid or unsafe? Denies 01/25/2024 Sex and Gender Information Value Date Recorded Sex Assigned at Not on file Legal Sex Male 1:50 AM BEVERAGE DISTILLER Gender Identity Male 09/21/2020 8:05 AM CDT Sexual Orientation Straight 09/21/2020 8: 05 AM CDT Last Filed Vital Signs Vital Sign Reading [...] 05/22/2024 10:21 AM CDT Plan of Treatment Not on file Medical Devices Implanted Type Area Engineering Secretary Device Identifier Shelf Expiration Date Model / Serial / Lot [employer] Carmelita-Edwa rds Physio 26mm Extended Length Handle Ergonomic [id number] - [id number] - [id number] Implanted:Qty: 1 on 06/16/2022 by Emery Angeles MD at [facility] Other - see comments N/A: Heart [employer] [id number] 03/08/2027 [id number] / [id number] / Description:TRICUSPID VALVE Ivc Filter Abdomen Port Chest Ar[employer]rex Inc Ar-8978p Dx Swivelock Sl 3.5mm 8.5mm Fork Eyelet [place] Suture Sterile - [id number] Implanted:Qty: 1 on 08/07/2017 by Herbie Melendrez MD at [facility] Orthopedic [place] Right: Wrist [employer] Inc 05/05/2022 AR-8978P / / [id number] Ar[employer] Ar-8978p Dx Swivelock Sl 3.5mm 8.5mm Fork Eyelet [place] Suture Sterile - [id number] Implanted:Qty: 1 on 08/07/2017 by Herbie Melendrez MD at [facility] Right: Wrist [employer] 05/05/2022 AR-8978P / / [id number] Ethicon Endo Surgery Ligaclip Extra 2.6mm Ligate Open Small Clip Internal Titanium Latex Free Lt100 - [id number] Implanted:Qty: 6 on 06/16/2022 by Emery Angeles MD at [facility] [employer] Endo Surgery LT100 / / Eth[employer] Ligaclip Extra 3.2mm Ligate Open Medium Clip Internal Titanium Latex Free Lt200 - [id number] Implanted:Qty: 2 on 06/16/2022 by Emery Angeles MD at [facility] [employer] Endo Surgery LT200 / / Atricure Atriclip [place] 35mm 6mm Head Articulation Stiff Shaft [id number] - [id number] Implanted:Qty: 1 on 06/16/2022 by Emery Angeles MD at [facility] N/A: Heart Atricure 12/06/2024 [id number] / / [id number] Explanted Type Area Engineering Secretary Device Identifier Shelf Expiration Date Model / Serial / Lot Arthrex Inc [id number] Drill Guide Bit Cannulated Guidewire 3mm 3.5mm 1.35mm Kit - [id number] Explanted:Qty: 1 on 08/07/2017 by Herbie Melendrez MD at [facility] Right: Wrist [employer] 02/04/2022 AR-8978DS-0 1 / / [id number] Procedures Procedure Name Priority Date/Time Associated Diagnosis [...] CREATININE RATIO, URINE Routine 02/13/2024 9:13 AM BEVERAGE DISTILLER Type 2 diabetes mellitus with other circulatory [...] was last reviewed 2020. Testing performed by: [facility] [place] [address] Blood 06/25/2024 9:33 AM CDT 06/25/2024 9:33 AM CDT us Katina Martin MD LAB BLOOD ORDERABLES Final Resul t [facility] [address] [address] Department [place] [address] * (ABNORMAL) Differential, auto (06/25/2024 9:33 AM CDT) Pathologist [facility] Neutrophil abs 2.55 1.50 - 6.50 K/cumm Comment:Testing performed by : [facility] [place] [address] Imm gran abs 0.01 0.00 - 0.10 K/cumm PALLAVI RIVERA Comment:Testing performed by : [facility] [place] [address] Lymphocyte abs 0.53(L) 0.80 - 3.30 K/cumm CERNER CH Comment:Testing performed by : [facility] [place] [address] Monocyte abs 0.41 0.20 - 0.80 K/cumm CERNER CH Comment:Testing performed by : [facility] [place] [address] Eosinophil abs 0.10 0.00 - 0.50 K/cumm CERNER CH Comment:Testing performed by : [facility] [place] [address] Basophil abs 0.02 0.00 - 0.10 K/cumm CERNER CH Comment:Testing performed by : [facility] [place] [address] Neutrophil pct 70.4 % CERNER CH Comment: Interpretive Data Percent cell count reference ranges are not reported, since discordance with absolute values may lead to misinterpretation of CBC data. Current Interpretive Data was last revised on 2017. Testing performed by: [facility] at [place] [id number] Imm gran pct 0.3 % CERNER CH Comment: Interpretive Data Percent cell count reference ranges are not reported, since discordance with absolute values may lead to misinterpretation of CBC data. Current Interpretive Data was last revised on 2017. Testing performed by: [facility] [place] [address] Lymphocyte pct 14.6 % CERNER CH Comment: Interpretive Data Percent cell count reference ranges are not reported, since discordance with absolute values may lead to misinterpretation of CBC data. Current Interpretive Data was last revised on 2017. Testing performed by: [facility] [place] [address] Monocyte pct 11.3 % CERNER CH Comment: Interpretive Data Percent cell count reference ranges are not reported, since discordance with absolute values may lead to misinterpretation of CBC data. Current Interpretive Data was last revised on 2017. Testing performed by: [facility] [place] [address] Eosinophil pct 2.8 % CERNER CH Comment: Interpretive Data Percent cell count reference ranges are not reported, since discordance with absolute values may lead to misinterpretation of CBC data. Current Interpretive Data was last revised on 2017. Testing performed by: [facility] [place] [address] Basophil pct 0.6 % PALLAVI Comment: Interpretive Data Percent cell count reference ranges are not reported, since discordance with absolute values may lead to misinterpretation of CBC data. Current Interpretive Data was last revised on 2017. Testing performed by: [facility] [place] [address] Blood 06/25/2024 9:33 AM CDT 06/25/2024 9:33 AM CDT us Katina Martin MD LAB BLOOD ORDERABLES Final Resul t [facility] [place] [address] [address] Department [place] [address] * (ABNORMAL) CBC with auto differential (06/25/2024 9:33 AM CDT) WBC 3.62(L) 3.80 - 9.90 K/cumm Comment:Testing performed by : [facility] [place] [address] Hgb 12.6(L) 13.0 - 17.5 g/dL PALLAVI Comment:Testing performed by : [facility] [place] [address] Hct 38.2(L) 38.9 - 50.3 % PALLAVI Comment:Testing performed by : [facility] [place] [address] Plt 120(L) 150 - 400 K/cumm CERLENIN Comment:Testing performed by : [facility] [place] [address] MPV 9.2 9.1 - 12.3 fL PALLAVI Comment:Testing performed by : [facility] [place] [address] RBC 4.30 4.30 - 5.80 M/cumm PALLAVI Comment:Testing performed by : [facility] [place] [address] MCV 88.8 81.3 - 96.4 fL CERNER CH Comment:Testing performed by : [facility] [place] [address] MCH 29.3 27.1 - 33.3 pg PALLAVI RIVERA Comment:Testing performed by : [facility] [place] [address] MCHC 33.0 32.3 - 35.7 g/dL PALALVI RIVERA Comment:Testing performed by : [facility] [place] [address] RDW CV 15.4(H) 11.1 - 14.9 % PALL[facility]I RIVERA Comment:Testing performed by : [facility] [place] [address] RDW SD 49.3(H) 35.7 - 48.1 fL P[facility]I RIVERA Comment:Testing performed by : [facility] [place] [address] NRBC abs 0.00 0.00 - 0.01 K/cumm PALLAVI RIVERA Comment:Testing performed by : [facility] [place] [address] ANC Prelim 2.55 1.50 - 6.50 K/cumm PALLAVI RIVERA Comment: Interpretive Data The rapid ANC is a preliminary automated count and may vary from the final ANC (Neut Abs) reported in the WBC differential that follows. Current interpretive data was last revised 2024. Testing performed by: [facility] [place] [address] Blood 06/25/2024 9:33 AM CDT 06/25/2024 9:33 AM CDT Katina Martin MD LAB BLOOD ORDERABLES Final Resul t [facility] [address] [address] Department [place] [address] * Lactate dehydrogenase (LD) (06/25/2024 9:33 AM CDT) Lactate dehydrogenase (LDH) 240 100 - 250 Units/L Comment:Testing performed by : [facility] [place] [address] Blood 06/25/2024 9:33 AM CDT 06/25/2024 9:33 AM CDT us Katina Martin MD LAB BLOOD ORDERABLES Final Resul t [facility] [address] [address] Department [place] [address] * Comprehensive metabolic panel (06/25/2024 9:33 AM CDT) Sodium 140 135 - 145 mmol/L Comment:Testing performed by : [facility] [place] [address] Potassium, pl 4.8 3.3 - 4.9 mmol/L PALLAVI Comment:Testing performed by : [facility] [place] [address] Chloride 103 97 - 110 mmol/L [facility] Comment:Testing performed by : [facility] [place] [address] CO2 26 22 - 32 mmol/L PALLAVI Comment:Testing performed by : [facility] [place] [address] Anion gap 11 2 - 15 mmol/L [facility] Comment:Testing performed by : [facility] [place] [address] BUN 21 6 - 25 mg/dL PALLAVI Comment:Testing performed by : [facility] [place] [address] Creatinine 1.21 0.80 - 1.30 mg/dL PALLAVI Comment:Testing performed by : [facility] [place] [address] Glucose 148 70 - 199 mg/dL [facility] Comment: Interpretive Data Fasting glucose >/= [...] was last revised 2022. Testing performed by: [facility] [place] [address] Calcium 9.3 8.5 - 10.3 mg/dL CERNER CH Comment:Testing performed by : [facility] [place] [address] Bilirubin, total 0.6 0.1 - 1.2 mg/dL CERNER CH Comment:Testing performed by : [facility] [place] [address] Protein, pl 6.6 6.5 - 8.5 g/dL CERNER CH Comment:Testing performed by : [facility] [place] [address] Albumin 4.4 3.5 - 5.0 g/dL CERNER CH Comment:Testing performed by : [facility] [place] [address] Alk phos 93 40 - 130 Units/L CERNER CH Comment:Testing performed by : [facility] [place] [address] ALT 35 7 - 55 Units/L CERNER CH Comment:Testing performed by : [facility] [place] [address] AST 33 10 - 50 Units/L CERNER CH Comment:Testing performed by : [facility] [place] [address] Blood 06/25/2024 9:33 AM CDT 06/25/2024 9:33 AM CDT Katina Martin MD LAB BLOOD ORDERABLES Final Resul t [facility] [address] [address] Department [place] [address] * POCT hemoglobin A1c (05/22/2024 10:29 AM CDT) Hemoglobin A1C, POC 5.7 4.0 - 5.6 [...] last revised on 2017. Testing performed by: [address] [address] Triglycerides 91 <=149 mg/dL PALLAVI Comment: Interpretive [...] Pediatrics 2011;128:S213 2. NCEP Expert Panel. Circulation 2003;110:227 Current Interpretive Data was last revised on 2017. Testing performed by: [address] [address] HDL 48 >=40 mg/dL PALLAVI Comment: Interpretive [...] last revised on 2017. Testing performed by: [address] [address] LDL, calculated 61 <=129 mg/dL PALLAVI Comment: [...] 3. Isaac Morocho et al. ZHENG Cardiol. 2019June 05;5(5):540-548. doi: 10.1001/jamacardio.2020.0013 Current Interpretive Data was last revised on 2023. Testing performed by: [address] [address] Non-HDL Cholesterol 78 mg/dL PALL[facility]I Comment: Interpretive [...] last revised on 2017. Testing performed by: [address] [address] Chol/HDL ratio 3 PALLAVI Comment:Testing performed by : [address] [address] Blood 04/15/2024 12:0 6 PM CDT 04/15/2024 12:55 PM CDT us Krish K. Alexander MD LAB BLOOD ORDERABLES Final Res ult [facility] Department [place] [address] * Albumin Creatinine Ratio, Urine (02/13/2024 9:13 AM BEVERAGE DISTILLER) Albumin Ur 26.7 mg/L Comment: Interpretive Data No reference range established. Current interpretive data was last revised 2018. Testing performed by: [facility], [address] [place] [address]., [address] Creatinine Ur 183.3 mg/dL PALLAVI PEARCE Comment: Interpretive Data No reference range established. Current interpretive data was last revised 2018. Testing performed by: [facility], [address] [place] [address]., [address] Albumin Creatinine Ratio, Ur 15 1 - 29 mg/g PALLAVI PEARCE Comment:Testing performed by : [facility], [address] [place] [address]., [address] Urine 02/13/2024 9:13 AM BEVERAGE DISTILLER 02/13/2024 10:49 AM BEVERAGE DISTILLER us Sarah Webster NP LAB URINE ORDERABLES Final R esult Performing Organization Address [facility]/ZIP Co de Phone Number [facility] [address] [facility] Department [place] [address] * HM DIABETES EYE EXAM (11/30/2023 8:43 AM CDT) SCRIBED HM DIABETIC DILATED EYE EXAM Normal Historical Provider HEALTH MAINTENANCE Final Result * [...] PSA screen (11/24/2022 12:56 PM CDT) Pathologist [facility] PSA-Total 1.06 <=6.20 ng/mL Comment: Interpretive Data [...] BLOOD ORDERABLES F inal Result P[facility]I [facility] [address] [facility]. [place] [address] * Hepatitis panel, acute (08/11/2021 9:00 AM CDT) Hep A IgM Nonreactive Nonreactive [facility] Comment: Interpretive Data: If Hep A IgM Ab is reported as Equivocal, a new sample should be drawn in two weeks for testing. Current interpretive data was last revised on 19. Hep B core IgM Nonreactive Nonreactive [facility] Comment: Interpretive Data If HepB Core IgM Ab is reported as Equivocal, a new sample should be drawn in two weeks for testing. Current interpretive data was last revised on 19. Hep C Ab Nonreactive Nonreactive [facility] Comment: Interpretive Data Nonreactive: Antibodies to HCV [...] last revised on 2019. HepBsAg Nonreactive Nonreactive [facility] Blood 08/11/2021 9:0 0 AM CDT 08/11/2021 11:08 AM CDT Leann No MD LAB MICROBIOLOGY - GENERAL O RDERABLES Final Result [facility] [address] [facility] Department [place] [address] * COLONOSCOPY (11/10/2019 9:09 AM CDT) Anatomical Region Laterality Modality Other Narrative Procedure Note Nieves Bob MD - 11/10/2019 9:09 AM CDT ENDOSCOPY LAB Patient Name: Jack Corbett Procedure Date: 11/10/2019 9:09 AM Date of : 1950 Admit Type: Outpatient Age: 69 Gender: Male Attending MD: Nieves Bob M.D. Room: [facility] ENDOSCOPY ROOM 01 Note Status: Finalized Procedure: [...] Thescope was passed under direct vision. The [id number] introduced through the anus and advanced to theterminal ileum. The colonoscopy was performed withoutdifficulty. The patient tolerated the procedure well. The qualityof the bowel preparation was evaluated using the BBPS([place] Bowel Preparation Scale) with scores of: Right [...] - [facility] The signs and symptoms of potential delayedcomplications were discussed with the patient. Return to normal activities tomorrow. Written discharge instructionswere provided to the patient. - Contact Information: During normal business hours - Please call the Nurse Coordinator: [phone] After hours, evening, nights, weekends and holidays - Please call the hospital combiner operator at and ask for the GI fellow carbon paste mixer operator. Electronically by Dr Nieves Bob Neives Bob M.D. 11/10/2019 9:47:49 AM Number of Addenda: 0 Note Initiated On: 11/10/2019 9:09 AM Nieves Bob MD ENDOSCOPY PROCEDURES Final Result from Last 3 Months or Most Recently Relevant to Health Maintenance Insurance MEDICARE MEDICARE MEDICARE [facility] MEDICARE SUPPLEMENT MEDICARE COMMERCIAL GENERIC MEDICARE [facility] Member Subscriber Plan / Payer (Ef fective 2017-Present) Name:Jack Corbett Member ID:[id number] Relation to Subscriber:Self Name:Jack Corbett Subscriber ID:[id number] Payer ID:[id number] Type:COMMERCIAL Address: [place] [address] Advance Directives For more information, please contact: [phone] * Full Code (Latest Code Status on [...] 7:57 AM 11/10/2019 2:51 PM Care Teams Cyber Security Systems Engineer Relationship Specialty [place] [address] [place] [address] PCP - General Internal Medicine 05/02/19 [place] [address] [place] [address] Surgeon Orthopedic Surgery 07/30/17 [place] [address] [place] [address] Consulting Physician Cardiothoracic Surgery 06/24/22 Miscellaneous, Not In File 06/24/22
[2024-08-26 22:08] LABS: Hematocrit 38.2 % (42.0-52.0); Hemoglobin 12.7 g/dL (14.0-18.0); Immature Granulocyte Percent A 0.2 % (0-0.5); Lymphocytes Absolute Auto 0.61 K/mm3 (0.9-3.2); Mean Corpuscular HGB Conc 33.2 g/dl (32-36); Mean Corpuscular Hemoglobin 29.6 pg (26-34); Mean Corpuscular Volume 89.0 fl (80-100); Nucleated Red Blood Cells Absolute Auto 0.000 K/mm3 (0.0-0.012); Nucleated Red Blood Cells Perc 0.0 % (0.0-0.2); Platelet Count Result 118 k/mm3 (150-375); Red Blood Count 4.29 M/mm3 (4.6-6.20); White Blood Count 4.1 K/mm3 (4.5-10.0)
[2024-08-26 22:19] LABS: INR 1.0; Prothrombin Time 12.7 Seconds (11.1-14.7)
[2024-08-26 22:20] LABS: Partial Thromboplastin Time 28.4 Seconds (22.3-36.8)
[2024-08-26 22:28] LABS: Alanine Aminotransferase 39 U/L (6-50); Albumin Level 4.5 g/dL (3.5-5.1); Alkaline Phosphatase 87 U/L (38-126); Anion Gap 12 mmol/L (4-12); Aspartate Amino Transferase 42 U/L (17-59); Bilirubin,Total 0.5 mg/dL (0.2-1.3); Blood Urea Nitrogen 17 mg/dL (9-20); Calcium 9.5 mg/dL (8.4-10.2); Carbon Dioxide 23 mmol/L (22-30); Chloride 104 mmol/L (98-107); Estimated CRCL calculation 55 ml/min; Estimated Glomerular Filt Rate > 60; Glucose 173 mg/dL (65-110); Lipase 371 U/L (23-300); Potassium 3.9 mmol/L (3.4-5.0); Sodium 139 mmol/L (137-145); Total Protein 8.6 g/dL (6.3-8.2)
[2024-08-26 22:39] LABS: Troponin I < 0.012 ng/mL (0.000-0.034)
[2024-08-26] MEDS: ONDANSETRON INJ 4 MG/2 ML VIAL IV PUSH (22:51)
[2024-08-26] MEDS: HYDROmorphone HCL INJ (*CRX) 2 MG/ML VIAL 0.5 MG IV PUSH (22:51)
--- NOTE | 2024-08-26 23:01 | ED_ITS ---
HPI - Chest Pain General Chief Complaint: Chest Pain Stated Complaint: chest pain to back Time Seen by Provider: 08/26/24 22:17 History of Present Illness HPI narrative: 73-year-old male with a past medical history including hypertension, hyperlipidemia, coronary artery bypass grafting done 2 years ago. He presents to the emergency depart with sudden-onset chest pain radiating towards his back. States that when on approximately 1 hour prior to arrival he thought was just bad heartburn. He had dorsum nauseousness without vomiting. Since then he has been having some pain radiating into his abdomen as well. Endorses more on the right side than centrally located. No history of any aortic disease or pathology to his knowledge. Been doing well from a cardiovascular standpoint. Denies any shortness a breath, vision changes, neck pain, jaw pain, arm pain. No recent procedures otherwise. Was otherwise in his normal state of health. Denies any traumatic injuries. States his blood pressure was high at home in the 180s range and is high here in the 190s. Has not missed any hypertension medications and he takes losartan and metoprolol for this. Related Data Home Medications ?Medication ?Instructions ?Recorded ?Confirmed ?Last Taken ?Type aspirin 81 mg tablet,delayed 81 mg PO DAILY 08/27/24 08/27/24 08/26/24 History release (Adult Aspirin Regimen) atorvastatin 80 mg tablet 80 mg PO QAM 08/27/24 08/27/24 08/26/24 08:00 History 80 mg benzonatate 200 mg capsule 200 mg PO PRN PRN cough 08/27/24 08/27/24 Unknown History cetirizine 10 mg tablet (24Hour 10 mg PO DAILY 08/27/24 08/27/24 08/26/24 History Allergy) furosemide 20 mg tablet mg 08/27/24 Unknown History losartan 50 mg tablet 50 mg PO DAILY@0800 08/27/24 08/27/24 08/26/24 History metformin 500 mg tablet,extended 500 mg PO DAILY@0808/27/24 08/27/24 08/26/24 History release 24 hr metoprolol succinate 25 mg 25 mg PO .daily at hs 08/27/24 08/27/24 08/26/24 History tablet,extended release 24 hr pantoprazole 40 mg tablet,delayed 40 mg PO .daily hs 08/27/24 08/27/24 08/26/24 History release paroxetine HCl 20 mg tablet 20 mg PO DAILY 08/27/24 08/27/24 08/26/24 History Allergies Allergy/AdvReac Type Severity Reaction Status Date / Time No Known Allergies Unverified 05/25/09 10:55 Review of Systems 2 Review of Systems: As reviewed above in HPI [facility] Family History Family History (Updated 08/27/24 @ 06:11 by Sulma Toure RN) Mother Diabetes mellitus Father Diabetes mellitus Social History Social History Smoking status: Never smoker Alcohol intake: current Drinks per week: 2 Substance use: never Do You Feel Safe in your Home?: Yes Lack of Transportation: No Lack of Food: Never True Current Housing: I Have Housing Concerned About Future Housing: No Difficulty Paying Gas/Electric Bills: No Difficulty Paying for Meds: No Currently Unemployed: No Education: High School Diploma/GED Difficulty w/ Childcare or Family Care: No Spiritual care concerns: No Exam 2 Narrative: GENERAL: Uncomfortable appearing, awake alert answering all questions. Mildly distressed in pain HEAD: [Normocephalic, atraumatic.] EYES: [PERRLA and EOMI.] ENT: Nares clear, no rhinorrhea or epistaxis. Mucous membranes moist. NECK: Supple. CHEST: [Clear to auscultation. No respiratory distress.] HEART: [Regular rate and rhythm]. No murmur heard. [Normal peripheral pulses.] ABDOMEN: [Soft, nondistended], mildly tender to palpation in the epigastrium, [No rigidity or guarding] EXTREMITIES: Normal range of motion. [No edema.] SKIN: Warm, dry, no rash. NEURO: [No focal deficits]. Alert and oriented [x3.] PSYCH: [Normal mood and affect.] Course Vital Signs Vital signs: Vital Signs Temperature 36.4 C L 08/26/24 21:49 Pulse Rate 66 08/26/24 21:49 Respiratory Rate 17 08/26/24 21:49 Blood Pressure 159/75 H 08/26/24 21:49 Pulse Oximetry 100 08/26/24 21:49 Oxygen Delivery Room Air 08/26/24 21:49 Temperature 36.4 C 08/27/24 06:00 Pulse Rate 92 08/27/24 06:00 Respiratory Rate 18 08/27/24 06:00 Blood Pressure 118/74 08/27/24 06:00 Pulse Oximetry 93 08/27/24 06:00 Oxygen Delivery Room Air 08/26/24 23:16 MDM - Chest Pain MDM Narrative Medical decision making narrative: 73-year-old male with a past medical history including hypertension, hyperlipidemia, coronary artery bypass grafting done 2 years ago. He presents to the emergency depart with sudden-onset chest pain radiating towards his back. States that when on approximately 1 hour prior to arrival he thought was just bad heartburn. He had dorsum nauseousness without vomiting. Since then he has been having some pain radiating into his abdomen as well. Endorses more on the right side than centrally located. No history of any aortic disease or pathology to his knowledge. Been doing well from a cardiovascular standpoint. Denies any shortness a breath, vision changes, neck pain, jaw pain, arm pain. No recent procedures otherwise. Was otherwise in his normal state of health. Denies any traumatic injuries. States his blood pressure was high at home in the 180s range and is high here in the 190s. Has not missed any hypertension medications and he takes losartan and metoprolol for this. Vital signs show hypertension 190s range but no tachycardia, tachypnea, fever or hypoxia. He has strong symmetric pulses, clear breath sounds throughout. Pain is reproducible in the epigastrium on palpation. States the pain started in his chest and goes to his back and belly. Differential is broad but does include vascular pathology such as aortic dissection or aneurysm, ACS, angina, gastritis, GERD, cholecystitis, cholelithiasis. CT angiography was ordered for further evaluation in addition to a cardiac workup, CBC, CMP, lipase, EKG, chest x-ray and serial troponins. He was given Dilaudid and Zofran for symptom control and re-evaluated. Placed on traffic monitor specialist. Patient's initial troponin is negative. EKG without any ischemic evidence. CT angiography shows no aneurysms, dissections, pericardial effusions. He has patchy bilateral ground-glass opacities with representing possibly atypical infection with minimal tracheal airway debris with potentially component of aspiration. He has small bilateral pleural fluids with peripheral calcifications likely chronic hemarthrosis. I discussed this with the patient he states yes he is aware of his previous calcified pleural effusions and states that they are not new and dating back to 2009 and seen on previous scans that he has had, he states that they are from previous unsuccessful pleural effusion drainages. He denies any recent attempts at pleural effusion drainage her paracentesis. Laboratory studies showed no leukocytosis or significant anemia. Platelets 118. Coagulation panel was normal. Electrolytes are normal. Lactic acid is negative. LFTs are normal. Delta troponin is negative. Lipase mildly elevated at 371. No convincing evidence of any abdominal or pelvic pathology on the CT scan read per Radiology. 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 Normal gallbladder size without any bile duct dilation, IVC filter is in place, normal appendix, normal appearing pancreas. Patient re-evaluated after initial pain medicines and had some mild improvement. We discussed his CT findings and that he is still having active chest pain at this time. Given his cardiac risk factors and findings of atypical infection on his CT scans we will treat him with a course of antibiotics including azithromycin, Rocephin and Flagyl even though he states that he did not aspirate have any vomiting events there is some evidence of debris in the airways. He was given morphine for analgesia. Awaiting discussion with hospitalist. Discussed with the hospitalist and patient was admitted to a telemetry monitored bed at this time with IV antibiotics. Blood cultures ordered. Discussed this with the family members at bedside were comfortable with the plan. Patient admitted successfully. Medical Records Data Attestation: I reviewed the patient's medical records. Lab Data Attestation: I reviewed the patient's lab results. 08/26/24 22:03 08/26/24 22:03 Labs: Lab Results 08/26/24 08/26/24 08/27/24 Range/Units 22:03 22:49 02:09 WBC 4.1 L (4.5-10.0) K/mm3 RBC 4.29 L (4.6-6.20) M/mm3 Hgb 12.7 L (14.0-18.0) g/dL Hct 38.2 L (42.0-52.0) % MCV 89.0 (80-100) fl MCH 29.6 (26-34) pg MCHC 33.2 (32-36) g/dl RDW 16.1 H (11.5-14.5) % Plt Count 118 L (150-375) k/mm3 MPV 9.7 (7.4-10.4) fl Immature Gran % (Auto) 0.2 (0-0.5) % Neut % (Auto) 72.6 (45.5-73.1) % Lymph % (Auto) 15.1 L (18.3-44.2) % Robertson % (Auto) 10.1 H (2.6-8.5) % Eos % (Auto) 1.5 (0-4.4) % Baso % (Auto) 0.5 (0.2-1.2) % Lymph # (Auto) 0.61 L (0.9-3.2) K/mm3 Robertson # (Auto) 0.4 (0.1-0.6) K/mm3 Eos # (Auto) 0.1 (0-0.3) K/mm3 Baso # (Auto) 0.0 (0.0-0.1) K/mm3 Abs Immat Gran (auto) 0.01 (0.00-0.031) K/mm3 Absolute Neuts (auto) 2.9 (1.3-6.7) K/mm3 Absolute Nucleated RBC 0.000 (0.0-0.012) K/mm3 Nucleated RBC % 0.0 (0.0-0.2) % PT 12.7 (11.1-14.7) Seconds INR 1.0 APTT 28.4 (22.3-36.8) Seconds Sodium 139 (137-145) mmol/L Potassium 3.9 (3.4-5.0) mmol/L Chloride 104 (98-107) mmol/L Carbon Dioxide 23 (22-30) mmol/L Anion Gap 12 (4-12) mmol/L BUN 17 (9-20) mg/dL Creatinine 1.13 (0.7-1.3) mg/dL Estim Creat Clear Calc 55 ml/min Estimated GFR > 60 (59 - ) Glucose 173 H (65-110) mg/dL Lactic Acid 1.4 (0.7-2.0) mmol/L Calcium 9.5 (8.4-10.2) mg/dL Total Bilirubin 0.5 (0.2-1.3) mg/dL AST 42 (17-59) U/L ALT 39 (6-50) U/L Alkaline Phosphatase 87 (38-126) U/L Troponin I < 0.012 < 0.012 (0.000-0.034) ng/mL Total Protein 8.6 H (6.3-8.2) g/dL Albumin 4.5 (3.5-5.1) g/dL Lipase 371 H (23-300) U/L Imaging Data Attestation: I personally reviewed and interpreted this imaging study as follows: My impression: Impressions Chest X-Ray 08/26/24 22:28 IMPRESSION: No acute cardiopulmonary process. Stable mild chronic bilateral costophrenic angle blunting, likely related to chronic scarring. Chest/Abdomen/Pelvis CTA 08/26/24 23:04 IMPRESSION: Mild patchy peripheral upper and anterior lung groundglass opacities, may represent mild edema or atypical infection. Minimal tracheal airway debris, likely reflecting a degree of aspiration. Small loculated appearing nonsimple bilateral pleural fluid collections with peripheral calcification, may represent chronic hemothoraces. Empyema not excluded. Urinary bladder wall thickening as can be seen with cystitis or chronic obstruction from prostatomegaly. 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 No aggressive features. Typically, soft tissue lipomas are referred for potential resection, when greater than 5 cm. Discharge Plan Discharge Clinical Impression: Atypical chest pain, Atypical pneumonia, Elevated lipase, Chronic bilateral pleural effusions Patient Disposition: Still a Patient Condition: Stable
--- OUTSIDE RECORDS SUMMARY | 2024-08-26 23:36 | XMS_ITS | Encounter Summary ---
Author Organization [facility] Healthcare Address [address] [place] [address] Care Team Providers Care Mess Cook Name Role Phone Herbie Melendrez MD Unavailable Nisreen Gayle MD Primary Care Provider An Sin NP Unavailable Shonda Smart MD Unavailable Leann No MD Unavailable Emery Angeles MD Unavailable Miscellaneous, Not In File Unavailable Unava ilable Nieves Rhodes RN Unavailable [phone] Encounter Details Date Type Department Care Team (Late st Contact Info) Description 04/06/2020 Telephone 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 Gender Identity Male 09/21/2020 8:05 AM CDT Sexual Orientation Straight 09/21/2020 8: 05 AM CDT documented as of this encounter Plan of Treatment Not on file documented as of this encounter Visit Diagnoses Not on filedocumented in this encounter Care Teams Mess Cook Relationship Specialty [place] [id number] [place] [address] PCP - General Internal Medicine 05/02/19 [place] [address] [place] [address] Surgeon Orthopedic Surgery 07/30/17 [place] [address] [place] [address] Nurse Practitioner Hematology 03/11/20 05/09/22 Shonda Smart MD [address] [place] [address] Medical Oncologist/Hematologis t Medical Oncology 03/30/20 08/28/23 Leann No MD [address] [place] [address] Medical Oncologist/Hematologis t Hematology 08/17/21 05/09/22 Emery Angeles MD [address] [place] [address] Consulting Physician Cardiothoracic Surgery 06/24/22 Miscellaneous, Not In File 06/24/22 Nieves Rhodes RN [address] [place] [address] [address] [place] [address] Elastic Assembler 05/23/23 12/20/23 documented as of this encounter
--- OUTSIDE RECORDS SUMMARY | 2024-08-26 23:36 | XMS_ITS | Referral Summary ---
Author Organization [facility] Address [address] [place] [address] Care Team Providers Care Accounts Manager Name Role Phone Herbie Melendrez MD Unavailable Nisreen Gayle MD Primary Care Provider Emery Angeles MD Unavailable [phone] Miscellaneous, Not In File Unavailable Unava ilable Encounters Date Type Department Care Team Description 08/26/2024 8:30 AM CDT Infusion [facility] at [address] [address] Hypogammaglobulinemia (Primary Dx); CLL (chronic lymphocytic leukemia) ([facility]) 07/29/2024 8:00 AM CDT Infusion [place] [address] [place] [address] Hypogammaglobulinemia (Primary Dx); CLL (chronic lymphocytic leukemia) ([facility]) 06/25/2024 10:30 AM CDT Infusion [place] [address] [place] [address] Hypogammaglobulinemia (Primary Dx); CLL (chronic lymphocytic leukemia) ([facility]) 06/25/2024 9:30 AM CDT Lab [facility] [address] [place] [phone] CLL (chronic lymphocytic leukemia) ([facility]) 06/25/2024 10:00 AM CDT Office Visit [facility] Hematology [address] [place] [phone] Katina Martin MD CLL (chronic lymphocytic leukemia) ([facility]) from Last 3 Months Allergies Active Allergy Reactions Criticality Noted Date Comments Adhesive Photosensitivity Low Atorvastatin Rash Medium 01/11/2020 Bacitracin Zinc-Polymyxin B Blisters High 12/12/2021 Benzalkonium Chloride Rash Medium 12/12/2019 Caruthers Chloride Rash Medium 12/12/2019 Cocamidopropyl Betaine Rash [...] Fragrance Mix II -- patch test 1+ Mtyyshb-Gmi-Goo Reductase Inhibitors Rash Medium 10/15/2019 Medications cetirizine [...] 02/13/2024 Assessment & Plan (02/13/2024 9:45 AM BATH MIXER): Will check TSH today. If normal could [...] daily Assessment & Plan (02/13/2024 9:44 AM BATH MIXER): Lab Results Component Value Date HGBA1C 7.5 [...] 05/31/2020 Assessment & Plan (02/13/2024 8:08 AM BATH MIXER): BMI Follow-up includes: nutrition counseling, exercise counseling, [...] (2019): Added automatically from request for surgery [id number] Recurrent major depressive disorder, in full rem ission 05/02/2019 Assessment & Plan (02/13/2024 9:42 AM BATH MIXER): Controlled Continue paroxetine 20 mg daily Assessment [...] 03/06/2017 Assessment & Plan (03/06/2017 9:28 AM BATH MIXER): He is doing well on current regimen [...] Patient verbalized understanding. CLL (chronic lymphocytic leukemia) ([facility]) 06/2016 Overview (12/05/2016): CLL (chronic lymphocytic [...] monthly. Assessment & Plan (03/06/2017 9:29 AM BATH MIXER): As per his current cleaner housekeeping Leukopenia 02/10/2016 Overview (05/11/2016): Leukopenia, unspecified type Assessment & Plan (04/18/2018 12:34 PM CDT): Continues to follow with his oncologist. Assessment & Plan (03/06/2017 9:29 AM BATH MIXER): Continues to follow with his oncologist blood [...] 25 Assessment & Plan (02/13/2024 9:42 AM BATH MIXER): BP well controlled Continue losartan 50 mg [...] plan. Assessment & Plan (03/06/2017 9:30 AM BATH MIXER): Blood pressure has been adjusted with lower [...] (05/15/2022): Added automatically from request for surgery [id number] Acute bilateral low back mary n with [...] if warranted. Coronary artery disease invo lving [employer] coronary artery of [employer] heart without angina pectoris 04/25/2020 05/31/2020 Left [...] (07/30/2017): Added automatically from request for surgery [id number] Other pulmonary embolism wit hout acute cor pulmonale 03/06/2017 04/18/2018 Assessment & Plan (03/06/2017 9:28 AM BATH MIXER): He continues to be treated by his oncologist, continues on Eliquis lifelong states he follows with Dr. Smart Moderate episode of recurren t major depressive disorder 03/06/2017 05/02/2019 Assessment & Plan (04/18/2018 12:35 PM CDT): Stable: Continue current medication. Assessment & Plan (03/06/2017 9:29 AM BATH MIXER): Patient is doing very well on current [...] will also hold his PPI and take qhro-zdx-fwrabua Zantac instead. nursing home current use of ant icoagulant therapy 05/25/2016 [...] failure 06/18/2012 Chronic lymphoid leukemia in remission ([facility]) 09/22/2011 11/09/2021 Assessment & Plan (05/31/2020 10:26 AM CDT): Patient has been in remission for some time. He continues to get IVIG monthly as prescribed by his supervisor sewing department. Doing well. Chronic lymphocytic leukemia of B-cell [...] materials from doctor or pharmacy Never 07/19/[address] [facility] Utilities Answer Date Recorded In [...] often do you attend chur ch or rastafari services? Never 09/25/2023 Do you belong to any clubs o r organizations such as yazidism groups, unions, fraternal or athletic groups, or [...] any time in the past 12 m [facility], were you homeless or living in [...] on file Legal Sex Male 1:50 AM BATH MIXER Gender Identity Male 09/21/2020 8:05 AM CDT [...] on file Medical Devices Implanted Type Area C Programmer Device Identifier Shelf Expiration Date Model / Serial / Lot [employer] Carmelita-Edwa rds Physio 26mm Extended Length Handle Ergonomic [id number] - [id number] - [id number] Implanted:Qty: 1 on 06/16/2022 by Emery Angeles MD at [facility] Other - see comments N/A: Heart [employer] [id number] 03/08/2027 [id number] / [id number] / Description:TRICUSPID VALVE Ivc Filter Abdomen Port Chest Ar[employer]rex Inc Ar-8978p Dx Swivelock Sl 3.5mm 8.5mm Fork Eyelet [place] Suture Sterile - [id number] Implanted:Qty: 1 on 08/07/2017 by Herbie Melendrez MD at [facility] [place] Right: Wrist [employer] Inc 05/05/2022 AR-8978P / / [id number] Ar[employer]rex [employer] Ar-8978p Dx Swivelock Sl 3.5mm 8.5mm Fork Eyelet [place] Suture Sterile - [id number] Implanted:Qty: 1 on 08/07/2017 by Herbie Melendrez MD at [facility] Right: Wrist [employer] 05/05/2022 AR-8978P / / [id number] Ethicon Endo Surgery Ligaclip Extra 2.6mm Ligate Open Small Clip Internal Titanium Latex Free Lt100 - [id number] Implanted:Qty: 6 on 06/16/2022 by Emery Angeles MD at [facility] Eth[employer] Endo Surgery LT100 / / Ethicon Endo Surgery Ligaclip Extra 3.2mm Ligate Open Medium Clip Internal Titanium Latex Free Lt200 - [id number] Implanted:Qty: 2 on 06/16/2022 by Emery Angeles MD at [facility] Eth[employer] Endo Surgery LT200 / / Atricure Atriclip [place] ve 35mm 6mm Head Articulation Stiff Shaft [id number] - [id number] Implanted:Qty: 1 on 06/16/2022 by Emery Angeles MD at [facility] N/A: Heart Atricure 12/06/2024 [id number] / / [id number] Explanted Type Area C Programmer Device Identifier Shelf Expiration Date Model / Serial / Lot Arthrex Inc [id number] Drill Guide Bit Cannulated Guidewire 3mm 3.5mm 1.35mm Kit - [id number] Explanted:Qty: 1 on 08/07/2017 by Herbie Melendrez MD at [facility] Right: Wrist [employer] 02/04/2022 AR-8978DS-0 1 / / [id number] Procedures Procedure Name Priority Date/Time Associated Diagnosis [...] CREATININE RATIO, URINE Routine 02/13/2024 9:13 AM BATH MIXER Type 2 diabetes mellitus with other circulatory [...] was last reviewed 2020. Testing performed by: [facility] [place] [address] Blood 06/25/2024 9:33 AM CDT 06/25/2024 9:33 AM CDT us Katina Martin MD LAB BLOOD ORDERABLES Final Resul t [facility] [address] [address] Department [place] [address] * (ABNORMAL) Differential, auto (06/25/2024 9:33 AM CDT) Pathologist [facility] Neutrophil abs 2.55 1.50 - 6.50 K/cumm Comment:Testing performed by : [facility] [place] [address] Imm gran abs 0.01 0.00 - 0.10 K/cumm PALLAVI RIVERA Comment:Testing performed by : [facility] [place] [address] Lymphocyte abs 0.53(L) 0.80 - 3.30 K/cumm CERNER CH Comment:Testing performed by : [facility] [place] [address] Monocyte abs 0.41 0.20 - 0.80 K/cumm CERNER CH Comment:Testing performed by : [facility] [place] [address] Eosinophil abs 0.10 0.00 - 0.50 K/cumm CERNER CH Comment:Testing performed by : [facility] [place] [address] Basophil abs 0.02 0.00 - 0.10 K/cumm CERNER CH Comment:Testing performed by : [facility] [place] [address] Neutrophil pct 70.4 % CERNER CH Comment: Interpretive Data Percent cell count reference ranges are not reported, since discordance with absolute values may lead to misinterpretation of CBC data. Current Interpretive Data was last revised on 2017. Testing performed by: [facility] at [place] [id number] Imm gran pct 0.3 % CERNER CH Comment: Interpretive Data Percent cell count reference ranges are not reported, since discordance with absolute values may lead to misinterpretation of CBC data. Current Interpretive Data was last revised on 2017. Testing performed by: [facility] [place] [address] Lymphocyte pct 14.6 % CERNER CH Comment: Interpretive Data Percent cell count reference ranges are not reported, since discordance with absolute values may lead to misinterpretation of CBC data. Current Interpretive Data was last revised on 2017. Testing performed by: [facility] [place] [address] Monocyte pct 11.3 % CERNER CH Comment: Interpretive Data Percent cell count reference ranges are not reported, since discordance with absolute values may lead to misinterpretation of CBC data. Current Interpretive Data was last revised on 2017. Testing performed by: [facility] [place] [address] Eosinophil pct 2.8 % CERNER CH Comment: Interpretive Data Percent cell count reference ranges are not reported, since discordance with absolute values may lead to misinterpretation of CBC data. Current Interpretive Data was last revised on 2017. Testing performed by: [facility] [place] [address] Basophil pct 0.6 % PALL[facility]I Comment: Interpretive Data Percent cell count reference ranges are not reported, since discordance with absolute values may lead to misinterpretation of CBC data. Current Interpretive Data was last revised on 2017. Testing performed by: [facility] [place] [address] Blood 06/25/2024 9:33 AM CDT 06/25/2024 9:33 AM CDT us Katina Martin MD LAB BLOOD ORDERABLES Final Resul t [facility] [address] [address] Department [place] [address] * (ABNORMAL) CBC with auto differential (06/25/2024 9:33 AM CDT) WBC 3.62(L) 3.80 - 9.90 K/cumm Comment:Testing performed by : [facility] [place] [address] Hgb 12.6(L) 13.0 - 17.5 g/dL PALL[facility]I Comment:Testing performed by : [facility] [place] [address] Hct 38.2(L) 38.9 - 50.3 % PALLAVI Comment:Testing performed by : [facility] [place] [address] Plt 120(L) 150 - 400 K/cumm CERLENIN Comment:Testing performed by : [facility] [place] [address] MPV 9.2 9.1 - 12.3 fL PALL[facility]I Comment:Testing performed by : [facility] [place] [address] RBC 4.30 4.30 - 5.80 M/cumm PALLAVI Comment:Testing performed by : [facility] [place] [address] MCV 88.8 81.3 - 96.4 fL CERNER CH Comment:Testing performed by : [facility] [place] [address] MCH 29.3 27.1 - 33.3 pg P[facility]I RIVERA Comment:Testing performed by : [facility] [place] [address] MCHC 33.0 32.3 - 35.7 g/dL P[facility]I RIVERA Comment:Testing performed by : [facility] [place] [address] RDW CV 15.4(H) 11.1 - 14.9 % [facility] RIVERA Comment:Testing performed by : [facility] [place] [address] RDW SD 49.3(H) 35.7 - 48.1 fL [facility]A Comment:Testing performed by : [facility] [place] [address] NRBC abs 0.00 0.00 - 0.01 K/cumm P[facility]I RIVERA Comment:Testing performed by : [facility] [place] [address] ANC Prelim 2.55 1.50 - 6.50 K/cumm P[facility]I RIVERA Comment: Interpretive Data The rapid ANC is a preliminary automated count and may vary from the final ANC (Neut Abs) reported in the WBC differential that follows. Current interpretive data was last revised 2024. Testing performed by: [facility] [place] [address] Blood 06/25/2024 9:33 AM CDT 06/25/2024 9:33 AM CDT Katina Martin MD LAB BLOOD ORDERABLES Final Resul t [facility] [address] [address] Department [place] [address] * Lactate dehydrogenase (LD) (06/25/2024 9:33 AM CDT) Lactate dehydrogenase (LDH) 240 100 - 250 Units/L Comment:Testing performed by : [facility] [place] [address] Blood 06/25/2024 9:33 AM CDT 06/25/2024 9:33 AM CDT us Katina Martin MD LAB BLOOD ORDERABLES Final Resul t [facility] [address] [address] Department [place] [address] * Comprehensive metabolic panel (06/25/2024 9:33 AM CDT) Sodium 140 135 - 145 mmol/L Comment:Testing performed by : [facility] [place] [address] Potassium, pl 4.8 3.3 - 4.9 mmol/L PALL[facility]I Comment:Testing performed by : [facility] [place] [address] Chloride 103 97 - 110 mmol/L [facility] Comment:Testing performed by : [facility] [place] [address] CO2 26 22 - 32 mmol/L PALL[facility]I Comment:Testing performed by : [facility] [place] [address] Anion gap 11 2 - 15 mmol/L [facility] Comment:Testing performed by : [facility] [place] [address] BUN 21 6 - 25 mg/dL P[facility]I Comment:Testing performed by : [facility] [place] [address] Creatinine 1.21 0.80 - 1.30 mg/dL PALL[facility]I Comment:Testing performed by : [facility] [place] [address] Glucose 148 70 - 199 mg/dL [facility] Comment: Interpretive Data Fasting glucose >/= [...] was last revised 2022. Testing performed by: [facility] [place] [address] Calcium 9.3 8.5 - 10.3 mg/dL CERNER CH Comment:Testing performed by : [facility] [place] [address] Bilirubin, total 0.6 0.1 - 1.2 mg/dL CERNER CH Comment:Testing performed by : [facility] [place] [address] Protein, pl 6.6 6.5 - 8.5 g/dL CERNER CH Comment:Testing performed by : [facility] [place] [address] Albumin 4.4 3.5 - 5.0 g/dL CERNER CH Comment:Testing performed by : [facility] [place] [address] Alk phos 93 40 - 130 Units/L CERNER CH Comment:Testing performed by : [facility] [place] [address] ALT 35 7 - 55 Units/L CERNER CH Comment:Testing performed by : [facility] [place] [address] AST 33 10 - 50 Units/L CERNER CH Comment:Testing performed by : [facility] [place] [address] Blood 06/25/2024 9:33 AM CDT 06/25/2024 9:33 AM CDT Katina Martin MD LAB BLOOD ORDERABLES Final Resul t [facility] [address] [address] Department [place] [address] * POCT hemoglobin A1c (05/22/2024 10:29 AM [...] last revised on 2017. Testing performed by: [address] [address] Triglycerides 91 <=149 mg/dL PALLAVI Comment: Interpretive [...] last revised on 2017. Testing performed by: [address] [address] HDL 48 >=40 mg/dL PALLAVI Comment: Interpretive [...] last revised on 2017. Testing performed by: [address] [address] LDL, calculated 61 <=129 mg/dL PALLAVI Comment: [...] last revised on 2023. Testing performed by: [address] [address] Non-HDL Cholesterol 78 mg/dL PALL[facility]I Comment: Interpretive [...] last revised on 2017. Testing performed by: [address] [address] Chol/HDL ratio 3 PALLAVI Comment:Testing performed by : [address] [address] Blood 04/15/2024 12:0 6 PM CDT 04/15/2024 12:55 PM CDT us Krish K. Alexander MD LAB BLOOD ORDERABLES Final Res ult [facility] [address] [facility] Department [place] [address] * Albumin Creatinine Ratio, Urine (02/13/2024 9:13 AM BATH MIXER) Albumin Ur 26.7 mg/L Comment: Interpretive Data No reference range established. Current interpretive data was last revised 2018. Testing performed by: [facility], [address] [place] [address]., [address] Creatinine Ur 183.3 mg/dL P[facility] PEARCE Comment: Interpretive Data No reference range established. Current interpretive data was last revised 2018. Testing performed by: [facility], [address] [place] [address]., [address] Albumin Creatinine Ratio, Ur 15 1 - 29 mg/g PALLAVI PEARCE Comment:Testing performed by : [facility], [address] [place] [address]., [address] Urine 02/13/2024 9:13 AM BATH MIXER 02/13/2024 10:49 AM BATH MIXER us Sarah Webster NP LAB URINE ORDERABLES Final R esult Performing Organization Address [facility]/ZIP Co de Phone Number [facility] [address] [facility] Department [place] [address] * HM DIABETES EYE EXAM (11/30/2023 8:43 [...] PSA screen (11/24/2022 12:56 PM CDT) Pathologist [facility] PSA-Total 1.06 <=6.20 ng/mL Comment: Interpretive Data [...] BLOOD ORDERABLES F inal Result [facility] [address] [facility]. [place] [place] [address] * Hepatitis panel, acute (08/11/2021 9:00 AM CDT) Hep A IgM Nonreactive Nonreactive [facility] Comment: Interpretive Data: If Hep A IgM Ab is reported as Equivocal, a new sample should be drawn in two weeks for testing. Current interpretive data was last revised on 19. Hep B core IgM Nonreactive Nonreactive [facility] Comment: Interpretive Data If HepB Core IgM Ab is reported as Equivocal, a new sample should be drawn in two weeks for testing. Current interpretive data was last revised on 19. Hep C Ab Nonreactive Nonreactive [facility] Comment: Interpretive Data Nonreactive: Antibodies to [...] last revised on 2019. HepBsAg Nonreactive Nonreactive [facility] Blood 08/11/2021 9:0 0 AM CDT 08/11/2021 11:08 AM CDT Leann No MD LAB MICROBIOLOGY - GENERAL O RDERABLES Final Result [facility] [address] [facility] Department [place] [address] * COLONOSCOPY (11/10/2019 9:09 AM CDT) Anatomical Region Laterality Modality Other Narrative Procedure Note Nieves Bob MD - 11/10/2019 9:09 AM CDT ENDOSCOPY LAB Patient Name: Jack Corbett Procedure Date: 11/10/2019 9:09 AM Date of : 1950 Admit Type: Outpatient Age: 69 Gender: Male Attending MD: Nieves Bob M.D. Room: [facility] ENDOSCOPY ROOM 01 Note Status: Finalized [...] Thescope was passed under direct vision. The [id number] introduced through the anus and advanced to theterminal ileum. The colonoscopy was performed withoutdifficulty. The patient tolerated the procedure well. The qualityof the bowel preparation was evaluated using the BBPS(Scurry Bowel Preparation Scale) with scores of: Right [...] - [facility] The signs and symptoms of potential delayedcomplications were discussed with the patient. Return to normal activities tomorrow. Written discharge instructionswere provided to the patient. - Contact Information: During normal business hours - Please call the Nurse Coordinator: [phone] After hours, evening, nights, weekends and holidays - Please call the hospital chief operator at and ask for the GI fellow telephone instrument supervisor. Electronically by Dr Nieves Bob Nieves Bob M.D. 11/10/2019 9:47:49 AM Number of Addenda: 0 Note Initiated On: 11/10/2019 9:09 AM Nieves Bob MD ENDOSCOPY PROCEDURES Final Result from Last 3 Months or Most Recently Relevant to Health Maintenance Insurance MEDICARE MEDICARE MEDICARE [facility] MEDICARE SUPPLEMENT MEDICARE COMMERCIAL GENERIC MEDICARE [facility] INS [place] Advance Directives For more information, please contact: [phone] * Full Code (Latest Code Status on [...] 7:57 AM 11/10/2019 2:51 PM Care Teams Accounts Manager Relationship Specialty [place] [address] [place] [address] PCP - General Internal Medicine 05/02/19 [place] [address] [place] [address] Surgeon Orthopedic Surgery 07/30/17 [place] [address] [place] [address] Consulting Physician Cardiothoracic Surgery 06/24/22 Miscellaneous, Not In File 06/24/22
--- OUTSIDE RECORDS SUMMARY | 2024-08-26 23:36 | XMS_ITS ---
Author Organization [facility] Address [address] [address] Care Team Providers Care Children[facility] T[facility] Nursery Name Role Phone Herbie Melendrez MD Unavailable [phone] Nisreen Gayle MD Primary Care Provider Emery Angeles MD Unavailable [phone] Miscellaneous, Not In File Unavailable Unava ilable Active Problems Problem Noted Date Diagnosed Date Subclinical hypothyroidism 02/13/2024 Assessment & Plan (02/13/2024 9:45 AM FRAMING CONSULTANT): Will check TSH today. If normal could [...] daily Assessment & Plan (02/13/2024 9:44 AM FRAMING CONSULTANT): Lab Results Component Value Date HGBA1C 7.5 [...] 05/31/2020 Assessment & Plan (02/13/2024 8:08 AM FRAMING CONSULTANT): BMI Follow-up includes: nutrition counseling, exercise counseling, [...] (2019): Added automatically from request for surgery [id number] Recurrent major depressive disorder, in full rem ission 05/02/2019 Assessment & Plan (02/13/2024 9:42 AM FRAMING CONSULTANT): Controlled Continue paroxetine 20 mg daily Assessment [...] 03/06/2017 Assessment & Plan (03/06/2017 9:28 AM FRAMING CONSULTANT): He is doing well on current regimen [...] Patient verbalized understanding. CLL (chronic lymphocytic leukemia) ([facility]) 06/2016 Overview (12/05/2016): CLL (chronic lymphocytic leukemia): [...] monthly. Assessment & Plan (03/06/2017 9:29 AM FRAMING CONSULTANT): As per his current sample puller Leukopenia 02/10/2016 Overview (05/11/2016): Leukopenia, unspecified type Assessment & Plan (04/18/2018 12:34 PM CDT): Continues to follow with his oncologist. Assessment & Plan (03/06/2017 9:29 AM FRAMING CONSULTANT): Continues to follow with his oncologist blood [...] 25 Assessment & Plan (02/13/2024 9:42 AM FRAMING CONSULTANT): BP well controlled Continue losartan 50 mg [...] plan. Assessment & Plan (03/06/2017 9:30 AM FRAMING CONSULTANT): Blood pressure has been adjusted with lower doses of losartan Assessment & Plan (11/28/2016 11:28 AM CDT): Stable continue current medication and keep blood pressure log. Current Treatment and Therapy Plans 2023 - 2024 Influenza Vaccine ([facility])* Plan Start Date: 11/21/2023 Plan Provider:Katina Martin [...] SVG to OM) on June 16. IDenia, PILE OPERATOR have personally reviewed pertinent inpatient and/or [...] (05/15/2022): Added automatically from request for surgery [id number] Acute bilateral low back mary n with [...] if warranted. Coronary artery disease invo lving sycuan coronary artery of sycuan heart without angina pectoris 04/25/2020 05/31/2020 Left [...] (07/30/2017): Added automatically from request for surgery [id number] Other pulmonary embolism wit hout acute cor pulmonale 03/06/2017 04/18/2018 Assessment & Plan (03/06/2017 9:28 AM FRAMING CONSULTANT): He continues to be treated by his oncologist, continues on Eliquis lifelong states he follows with Dr. Smart Moderate episode of recurren t major depressive disorder 03/06/2017 05/02/2019 Assessment & Plan (04/18/2018 12:35 PM CDT): Stable: Continue current medication. Assessment & Plan (03/06/2017 9:29 AM FRAMING CONSULTANT): Patient is doing very well on current [...] will also hold his PPI and take [id number] Zantac instead. skilled nursing current use of ant icoagulant therapy 05/25/2016 [...] failure 06/18/2012 Chronic lymphoid leukemia in remission ([facility]) 09/22/2011 11/09/2021 Assessment & Plan (05/31/2020 10:26 AM CDT): Patient has been in remission for some time. He continues to get IVIG monthly as prescribed by his staffing associate. Doing well. Chronic lymphocytic leukemia of B-cell type 03/07/2011 05/31/2020
--- OUTSIDE RECORDS SUMMARY | 2024-08-26 23:36 | XMS_ITS | Encounter Summary ---
Author Organization [facility] Healthcare Address [address] [place] [address] Care Team Providers Care Senior Director Name Role Phone Herbie Melendrez MD Unavailable [phone] Nisreen Gayle MD Primary Care Provider Emery Angeles MD Unavailable [phone] Miscellaneous, Not In File Unavailable Unava ilable Reason for Visit * Reason Comments OP Infusion * Episode Based Medications (Routine) - Authorized Specialty Diagnoses / Procedures Referred By Contaudelia t Referred To Contact Oncology Diagnoses CLL (chronic lymphocytic leukemia) (HCC) Hypogammaglobulinemia Procedures CHEMOTHERAPY NE GAMUNEX-C/GAMMAKED IMMUNE GLOBULIN (GAMUNEX-C/GAMMAKED) Shonda Smart MD [address] [place] [address] [address] [place] [address] Phone: tel: fax: [facility] [address] [place] [address] Phone: tel: fax: Referral ID Status Reason Start Date Expiration Date V isits Requested Visits Authorized [id number] Authorized 07/04/2017 02/19/2025 99 99 Encounter Details Date Type Department Care Team (Latest Contact Info) Description 08/26/2024 8:30 AM CDT Infusion [facility] [address] [place] [address] [address] Hypogammaglobulinemia (Primary Dx); CLL (chronic lymphocytic leukemia) [...] materials from doctor or pharmacy Never 07/19/2022 [facility] Utilities Answer Date Recorded In the past 12 months has [employer], oil, or water [employer] threatened to shut off services in your [...] often do you attend chur ch or taoist services? Never 09/25/2023 Do you belong to any clubs o r organizations such as catholic groups, unions, fraternal or athletic groups, or [...] any time in the past 12 [facility], were you homeless or living in a skilled nursing (including now)? No 09/25/2023 Personal Safety Answer Date Recorded Have you ever been in or are you currently in a harmful physical or emotional relationship or is someone making you feel afraid or unsafe? 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 male [...] First Orde red Date ONCBCN NURSING COMMUNICATION [id number] 0 08/26/2024 VITAL SIGNS INTRA-INFUSION 1 08/26/2024 Appointment Requests Count Last Ordered Date Fi rst Ordered Date ONCBCN INFUSION APPT REQUEST 1 08/26/2024 documented in this encounter Care Teams Senior Director Relationship Specialty [place] [id number] [place] [address] PCP - General Internal Medicine 05/02/19 [place] [id number] [place] [address] Surgeon Orthopedic Surgery 07/30/17 [place] [id number] [place] [address] Consulting Physician Cardiothoracic Surgery 06/24/22 Miscellaneous, Not In File 06/24/22 documented as of this encounter
--- OUTSIDE RECORDS SUMMARY | 2024-08-26 23:36 | XMS_ITS | Clinical Summary ---
Author Organization [facility] Address [address] [address] Care Team Providers Care Physical Therapy Aide Name Role Phone Herbie Melendrez MD Unavailable Nisreen Gayle MD Primary Care Provider Emery Angeles MD Unavailable [phone] Miscellaneous, Not In File Unavailable Unava ilable Allergies Active Allergy Reactions Criticality Noted Date Comments Adhesive Photosensitivity Low Atorvastatin Rash Medium 01/11/2020 Bacitracin Zinc-Polymyxin B Blisters High 12/12/2021 Benzalkonium Chloride Rash Medium 12/12/2019 [place] Chloride Rash Medium 12/12/2019 Cocamidopropyl Betaine Rash [...] Fragrance Mix II -- patch test 1+ Cfowsqb-Utc-Dfb Reductase Inhibitors Rash Medium 10/15/2019 Medications cetirizine [...] 02/13/2024 Assessment & Plan (02/13/2024 9:45 AM WHEEL ASSEMBLER): Will check TSH today. If normal could [...] daily Assessment & Plan (02/13/2024 9:44 AM WHEEL ASSEMBLER): Lab Results Component Value Date HGBA1C 7.5 [...] 05/31/2020 Assessment & Plan (02/13/2024 8:08 AM WHEEL ASSEMBLER): BMI Follow-up includes: nutrition counseling, exercise counseling, [...] (2019): Added automatically from request for surgery [id number] Recurrent major depressive disorder, in full rem ission 05/02/2019 Assessment & Plan (02/13/2024 9:42 AM WHEEL ASSEMBLER): Controlled Continue paroxetine 20 mg daily Assessment [...] 03/06/2017 Assessment & Plan (03/06/2017 9:28 AM WHEEL ASSEMBLER): He is doing well on current regimen [...] Patient verbalized understanding. CLL (chronic lymphocytic leukemia) ([facility]) 06/2016 Overview (12/05/2016): CLL (chronic lymphocytic [...] monthly. Assessment & Plan (03/06/2017 9:29 AM WHEEL ASSEMBLER): As per his current english composition instructor Leukopenia 02/10/2016 Overview (05/11/2016): Leukopenia, unspecified type Assessment & Plan (04/18/2018 12:34 PM CDT): Continues to follow with his oncologist. Assessment & Plan (03/06/2017 9:29 AM WHEEL ASSEMBLER): Continues to follow with his oncologist blood [...] 25 Assessment & Plan (02/13/2024 9:42 AM WHEEL ASSEMBLER): BP well controlled Continue losartan 50 mg [...] plan. Assessment & Plan (03/06/2017 9:30 AM WHEEL ASSEMBLER): Blood pressure has been adjusted with lower [...] SVG to OM) on June 16. IDenia, LIFE SPECIALIST have personally reviewed pertinent inpatient and/or ED [...] (05/15/2022): Added automatically from request for surgery [id number] Acute bilateral low back mary n with [...] if warranted. Coronary artery disease invo lving cachil dehe coronary artery of cachil dehe heart without angina pectoris 04/25/2020 05/31/2020 Left [...] (07/30/2017): Added automatically from request for surgery [id number] Other pulmonary embolism wit hout acute cor pulmonale 03/06/2017 04/18/2018 Assessment & Plan (03/06/2017 9:28 AM WHEEL ASSEMBLER): He continues to be treated by his oncologist, continues on Eliquis lifelong states he follows with Dr. Smart Moderate episode of recurren t major depressive disorder 03/06/2017 05/02/2019 Assessment & Plan (04/18/2018 12:35 PM CDT): Stable: Continue current medication. Assessment & Plan (03/06/2017 9:29 AM WHEEL ASSEMBLER): Patient is doing very well on current [...] will also hold his PPI and take [id number] Zantac instead. senior living current use of ant icoagulant therapy 05/25/2016 [...] failure 06/18/2012 Chronic lymphoid leukemia in remission ([facility]/HCC) 09/22/2011 11/09/2021 Assessment & Plan (05/31/2020 10:26 AM CDT): Patient has been in remission for some time. He continues to get IVIG monthly as prescribed by his head paper tester. Doing well. Chronic lymphocytic leukemia of B-cell type 03/07/2011 05/31/2020 Encounters Date Type Department Care Team Description 08/26/2024 8:30 AM CDT Infusion [place] [address] [place] [place] [address] Hypogammaglobulinemia (Primary Dx); CLL (chronic lymphocytic leukemia) (HCC) 07/29/2024 8:[address] [facility] [address] [place] [address] Hypogammaglobulinemia (Primary Dx); CLL (chronic lymphocytic leukemia) (HCC) 06/25/2024 10:30 AM CDT Infusion [place] [address] [place] [address] Hypogammaglobulinemia (Primary Dx); CLL (chronic lymphocytic leukemia) (HCC) 06/25/2024 10:00 AM CDT Office Visit [facility] [address] [place] [address] Katina Martin MD CLL (chronic lymphocytic leukemia) (HCC) 06/25/2024 9:30 AM CDT Lab [facility] [address] [address] CLL (chronic lymphocytic leukemia) ([facility]) from Last 3 Months Immunizations Immunization Administration [...] Added automatically from re quest for surgery [id number] Arthritis of right hand 03/06/2017 CLL (chronic [...] materials from doctor or pharmacy Never 07/19/2022 [facility] Utilities Answer Date Recorded In the past 12 months has e [employer], oil, or water [employer] threatened to shut off services in your [...] week 09/25/2023 How often do you attend [facility] or religion services? Never 09/25/2023 Do you belong to any clubs o r organizations such as alevism groups, unions, fraternal or athletic groups, or [...] any time in the past 12 m [facility], were you homeless or living in a snf (including now)? No 09/25/2023 Personal Safety Answer Date Recorded Have you ever been in or are you currently in a harmful physical or emotional relationship or is someone making you feel afraid or unsafe? Denies 01/25/2024 Sex and Gender Information Value Date Recorded Sex Assigned at Not on file Legal Sex Male 1:50 AM WHEEL ASSEMBLER Gender Identity Male 09/21/2020 8:05 AM [...] history exists Medical Devices Implanted Type Area Language Specialist Device Identifier Shelf Expiration Date Model / Serial / Lot [employer] Carmelita-Edwa rds Physio 26mm Extended Length Handle Ergonomic [id number] - [id number] - [id number] Implanted:Qty: 1 on 06/16/2022 by Emery Angeles MD at [facility] Other - see comments N/A: Heart [employer] [id number] 03/08/2027 [id number] / [id number] / Description:TRICUSPID VALVE Ivc Filter Abdomen Port Chest Arthrex Inc Ar-8978p Dx Swivelock Sl 3.5mm 8.5mm Fork Eyelet [place] Suture Sterile - [id number] Implanted:Qty: 1 on 08/07/2017 by Herbie Melendrez MD at [facility] Orthopedic [place] Right: Wrist Arthrex Inc 05/05/2022 AR-8978P / / [id number] Arthrex Inc Ar-8978p Dx Swivelock Sl 3.5mm 8.5mm Fork Eyelet [place] Suture Sterile - [id number] Implanted:Qty: 1 on 08/07/2017 by Herbie Melendrez MD at [facility] Right: Wrist [employer] Inc 05/05/2022 AR-8978P / / [id number] Ethicon Endo Surgery Ligaclip Extra 2.6mm Ligate Open Small Clip Internal Titanium Latex Free Lt100 - [id number] Implanted:Qty: 6 on 06/16/2022 by Emery Angeles MD at [facility] Ethicon Endo Surgery LT100 / / Ethicon Endo Surgery Ligaclip Extra 3.2mm Ligate Open Medium Clip Internal Titanium Latex Free Lt200 - [id number] Implanted:Qty: 2 on 06/16/2022 by Emery Angeles MD at [facility] Ethicon Endo Surgery LT200 / / Atricure Atriclip [place] ve 35mm 6mm Head Articulation Stiff Shaft [id number] - [id number] Implanted:Qty: 1 on 06/16/2022 by Emery Angeles MD at [facility] N/A: Heart Atricure 12/06/2024 [id number] / / [id number] Explanted Type Area Language Specialist Device Identifier Shelf Expiration Date Model / Serial / Lot Arthrex Inc [id number] Drill Guide Bit Cannulated Guidewire 3mm 3.5mm 1.35mm Kit - [id number] Explanted:Qty: 1 on 08/07/2017 by Herbie Melendrez MD at [facility] Orthopedic [place] Right: Wrist Ar[employer]rex Inc 02/04/2022 AR-8978DS-0 1 / / [id number] Procedures Procedure Name Priority Date/Time Associated Diagnosis [...] CREATININE RATIO, URINE Routine 02/13/2024 9:13 AM WHEEL ASSEMBLER Type 2 diabetes mellitus with other circulatory [...] was last reviewed 2020. Testing performed by: [facility] [place] [address] Blood 06/25/2024 9:33 AM CDT 06/25/2024 9:33 AM CDT us Katina Martin MD LAB BLOOD ORDERABLES Final Resul t [facility] [address] Department [place] [address] * (ABNORMAL) Differential, auto (06/25/2024 9:33 AM CDT) Pathologist [facility] Neutrophil abs 2.55 1.50 - 6.50 K/cumm Comment:Testing performed by : [facility] [place] [address] Imm gran abs 0.01 0.00 - 0.10 K/cumm PALLAVI RIVERA Comment:Testing performed by : [facility] [place] [address] Lymphocyte abs 0.53(L) 0.80 - 3.30 K/cumm CERNER CH Comment:Testing performed by : [facility] [place] [address] Monocyte abs 0.41 0.20 - 0.80 K/cumm CERNER CH Comment:Testing performed by : [facility] [place] [address] Eosinophil abs 0.10 0.00 - 0.50 K/cumm CERNER CH Comment:Testing performed by : [facility] [place] [address] Basophil abs 0.02 0.00 - 0.10 K/cumm CERNER CH Comment:Testing performed by : [facility] [place] [address] Neutrophil pct 70.4 % CERNER CH Comment: Interpretive Data Percent cell count reference ranges are not reported, since discordance with absolute values may lead to misinterpretation of CBC data. Current Interpretive Data was last revised on 2017. Testing performed by: [facility] [place] [address] Imm gran pct 0.3 % CERNER CH Comment: Interpretive Data Percent cell count reference ranges are not reported, since discordance with absolute values may lead to misinterpretation of CBC data. Current Interpretive Data was last revised on 2017. Testing performed by: [facility] [place] [address] Lymphocyte pct 14.6 % CERNER CH Comment: Interpretive Data Percent cell count reference ranges are not reported, since discordance with absolute values may lead to misinterpretation of CBC data. Current Interpretive Data was last revised on 2017. Testing performed by: [facility] [place] [address] Monocyte pct 11.3 % CERNER CH Comment: Interpretive Data Percent cell count reference ranges are not reported, since discordance with absolute values may lead to misinterpretation of CBC data. Current Interpretive Data was last revised on 2017. Testing performed by: [facility] [place] [address] Eosinophil pct 2.8 % CERNER CH Comment: Interpretive Data Percent cell count reference ranges are not reported, since discordance with absolute values may lead to misinterpretation of CBC data. Current Interpretive Data was last revised on 2017. Testing performed by: [facility] [place] [address] Basophil pct 0.6 % CERLENIN Comment: Interpretive Data Percent cell count reference ranges are not reported, since discordance with absolute values may lead to misinterpretation of CBC data. Current Interpretive Data was last revised on 2017. Testing performed by: [facility] [place] [address] Blood 06/25/2024 9:33 AM CDT 06/25/2024 9:33 AM CDT Katina Martin MD LAB BLOOD ORDERABLES Final Resul t [facility] [place] [address] [address] Department [place] [address] * (ABNORMAL) CBC with auto differential (06/25/2024 9:33 AM CDT) WBC 3.62(L) 3.80 - 9.90 K/cumm Comment:Testing performed by : [facility] [place] [address] Hgb 12.6(L) 13.0 - 17.5 g/dL PALLAVI Comment:Testing performed by : [facility] [place] [address] Hct 38.2(L) 38.9 - 50.3 % PALLAVI Comment:Testing performed by : [facility] [place] [address] Plt 120(L) 150 - 400 K/cumm PALLAVI Comment:Testing performed by : [facility] [place] [address] MPV 9.2 9.1 - 12.3 fL PALLAVI CH Comment:Testing performed by : [facility] [place] [address] RBC 4.30 4.30 - 5.80 M/cumm CERLENIN CH Comment:Testing performed by : [facility] [place] [address] MCV 88.8 81.3 - 96.4 fL PALLAVI CH Comment:Testing performed by : [facility] [place] [address] MCH 29.3 27.1 - 33.3 pg PALLAVI RIVERA Comment:Testing performed by : [facility] [place] [address] MCHC 33.0 32.3 - 35.7 g/dL P[facility]I RIVERA Comment:Testing performed by : [facility] [place] [address] RDW CV 15.4(H) 11.1 - 14.9 % PALLAVI RIVERA Comment:Testing performed by : [facility] [place] [address] RDW SD 49.3(H) 35.7 - 48.1 fL [facility] R[facility]A Comment:Testing performed by : [facility] [place] [address] NRBC abs 0.00 0.00 - 0.01 K/cumm P[facility]I RIVERA Comment:Testing performed by : [facility] [place] [address] ANC Prelim 2.55 1.50 - 6.50 K/cumm P[facility]I RIVERA Comment: Interpretive Data The rapid ANC is a preliminary automated count and may vary from the final ANC (Neut Abs) reported in the WBC differential that follows. Current interpretive data was last revised 2024. Testing performed by: [facility] [place] [address] Blood 06/25/2024 9:33 AM CDT 06/25/2024 9:33 AM CDT Katina Martin MD LAB BLOOD ORDERABLES Final Resul t [facility] [address] [address] Department [place] [address] * Lactate dehydrogenase (LD) (06/25/2024 9:33 AM CDT) Lactate dehydrogenase (LDH) 240 100 - 250 Units/L Comment:Testing performed by : [facility] [place] [address] Blood 06/25/2024 9:33 AM CDT 06/25/2024 9:33 AM CDT us Katina Martin MD LAB BLOOD ORDERABLES Final Resul t [facility] [address] Department [place] [address] * Comprehensive metabolic panel (06/25/2024 9:33 AM CDT) Sodium 140 135 - 145 mmol/L Comment:Testing performed by : [facility] [place] [address] Potassium, pl 4.8 3.3 - 4.9 mmol/L CERNER Comment:Testing performed by : [facility] [place] [address] Chloride 103 97 - 110 mmol/L CERNER Comment:Testing performed by : [facility] [place] [address] CO2 26 22 - 32 mmol/L CERNER CH Comment:Testing performed by : [facility] [place] [address] Anion gap 11 2 - 15 mmol/L [facility] Comment:Testing performed by : [facility] [place] [address] BUN 21 6 - 25 mg/dL CERNER Comment:Testing performed by : [facility] [place] [address] Creatinine 1.21 0.80 - 1.30 mg/dL CERNER Comment:Testing performed by : [facility] [place] [address] Glucose 148 70 - 199 mg/dL [facility] Comment: Interpretive Data Fasting glucose >/= 126 [...] was last revised 2022. Testing performed by: [facility] [place] [address] Calcium 9.3 8.5 - 10.3 mg/dL CERNER CH Comment:Testing performed by : [facility] [place] [address] Bilirubin, total 0.6 0.1 - 1.2 mg/dL CERNER CH Comment:Testing performed by : [facility] [place] [address] Protein, pl 6.6 6.5 - 8.5 g/dL CERNER CH Comment:Testing performed by : [facility] [place] [address] Albumin 4.4 3.5 - 5.0 g/dL CERNER CH Comment:Testing performed by : [facility] [place] [address] Alk phos 93 40 - 130 Units/L CERNER CH Comment:Testing performed by : [facility] [place] [address] ALT 35 7 - 55 Units/L CERNER CH Comment:Testing performed by : [facility] [place] [address] AST 33 10 - 50 Units/L CERNER CH Comment:Testing performed by : [facility] [place] [address] Blood 06/25/2024 9:33 AM CDT 06/25/2024 9:33 AM CDT Katina Martin MD LAB BLOOD ORDERABLES Final Resul t [facility] [address] [address] Department [place] [address] * POCT hemoglobin A1c (05/22/2024 10:29 AM [...] last revised on 2017. Testing performed by: [address] [address] Triglycerides 91 <=149 mg/dL PALLAVI Comment: Interpretive [...] last revised on 2017. Testing performed by: [address] [address] HDL 48 >=40 mg/dL PALLAVI Comment: Interpretive [...] last revised on 2017. Testing performed by: [address] [address] LDL, calculated 61 <=129 mg/dL PALLAVI Comment: [...] last revised on 2023. Testing performed by: [address] [address] Non-HDL Cholesterol 78 mg/dL PALLAVI Comment: Interpretive [...] last revised on 2017. Testing performed by: [address] [address] Chol/HDL ratio 3 PALLAVI Comment:Testing performed by : [address] [address] Blood 04/15/2024 12:0 6 PM CDT 04/15/2024 12:55 PM CDT us Krish Alexander MD LAB BLOOD ORDERABLES Final Res ult Performing Organization Address City/[facility]/ZIP Co de Phone Number P[facility]AVI [address] [facility] Department [place] [address] * Albumin Creatinine Ratio, Urine (02/13/2024 9:13 AM WHEEL ASSEMBLER) Albumin Ur 26.7 mg/L Comment: Interpretive Data No reference range established. Current interpretive data was last revised 2018. Testing performed by: [facility], [address] [place] [address]., [address] Creatinine Ur 183.3 mg/dL [facility] PEARCE Comment: Interpretive Data No reference range established. Current interpretive data was last revised 2018. Testing performed by: [facility], [address] [place] [address]., [address] Albumin Creatinine Ratio, Ur 15 1 - 29 mg/g PALLAVI PEARCE Comment:Testing performed by : [facility], [address] [place] [address]., [address] Urine 02/13/2024 9:13 AM WHEEL ASSEMBLER 02/13/2024 10:49 AM WHEEL ASSEMBLER us Sarah Webster NP LAB URINE ORDERABLES Final R esult Performing Organization Address [facility] Co de Phone Number P[facility]I [facility] [address] [facility] Department [place] [address] * HM DIABETES EYE EXAM (11/30/2023 8:43 [...] BLOOD ORDERABLES F inal Result [facility]I [facility] [address] [facility]. Department [place] [employer] [place] [address] * Hepatitis panel, acute (08/11/2021 [...] - GENERAL O RDERABLES Final Result P[facility]I [address] [facility] [place] [address] * COLONOSCOPY (11/10/2019 9:09 AM CDT) Anatomical Region Laterality Modality Other Narrative Procedure Note Nieves Bob MD - 11/10/2019 9:09 AM CDT ENDOSCOPY LAB Patient Name: Jack Corbett Procedure Date: 11/10/2019 9:09 AM Date of : 1950 Admit Type: Outpatient Age: 69 Gender: Male Attending MD: Nieves Bob M.D. Room: [facility] ENDOSCOPY ROOM 01 Note Status: Finalized [...] Thescope was passed under direct vision. The [id number] introduced through the anus and advanced to theterminal ileum. The colonoscopy was performed withoutdifficulty. The patient tolerated the procedure well. The qualityof the bowel preparation was evaluated using the BBPS([place] Bowel Preparation Scale) with scores of: Right [...] - Patient has a contact [facility] The signs and symptoms of potential delayedcomplications were discussed with the patient. Return to normal activities tomorrow. Written discharge instructionswere provided to the patient. - Contact Information: During normal business hours - Please call the Nurse Coordinator: [phone] After hours, evening, nights, weekends and holidays - Please call the hospital wire turning machine operator at and ask for the GI fellow foundation stage teacher. Electronically by Dr Nieves Bob Nieves Bob M.D. 11/10/2019 9:47:49 AM Number of Addenda: 0 Note Initiated On: 11/10/2019 9:09 AM Nieves Bob MD ENDOSCOPY PROCEDURES Final Result from Last 3 Months or Most Recently Relevant to Health Maintenance Insurance MEDICARE MEDICARE MEDICARE [facility] MEDICARE SUPPLEMENT MEDICARE COMMERCIAL GENERIC MEDICARE [employer] Member Subscriber Plan / Payer (Ef fective 2017-Present) Name:Jack Corbett Member ID:[id number] Relation to Subscriber:Self Name:Jack Corbett Subscriber ID:[id number] Payer ID:[id number] Type:COMMERCIAL Address: [facility] [id number] [place] [address] Advance Directives For more information, please contact: [phone] * Full Code (Latest Code Status on [...] 7:57 AM 11/10/2019 2:51 PM Care Teams Physical Therapy Aide Relationship Specialty [place] [address] [place] [address] PCP - General Internal Medicine 05/02/19 [place] [address] [place] [address] Surgeon Orthopedic Surgery 07/30/17 [place] [address] [place] [address] Consulting Physician Cardiothoracic Surgery 06/24/22 Miscellaneous, Not In File 06/24/22
--- OUTSIDE RECORDS SUMMARY | 2024-08-26 23:36 | XMS_ITS | Encounter Summary ---
Author Organization [facility] Address [address] [place] [address] Phone Care Team Providers Care Welding Equipment Sales Representative Name Role Phone Baldomero Ignacio MD Primary Care Provider Herbie Melendrez MD Unavailable Nisreen Gayle MD Primary Care Provider An Sin NP Unavailable [phone] Shonda Smart MD Unavailable Leann No MD Unavailable Emery Angeles MD Unavailable [phone] Miscellaneous, Not In File Unavailable Unava ilable Nieves Rhodes RN Unavailable Reason for Visit * Reason Onset Date Comments SCHEDULE UPDATE 02/26/2019 Encounter Details Date Type Department Care Team (Late st Contact Info) Description 02/26/2019 Telephone [facility] Oncology [address] [facility] 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 Gender Identity Male 09/21/2020 8:05 AM CDT Sexual Orientation Straight 09/21/2020 8: 05 AM CDT documented as of this encounter Plan of Treatment Not on file documented as of this encounter Visit Diagnoses Not on filedocumented in this encounter Care Teams Welding Equipment Sales Representative Relationship Specialty Start Date End Date Baldomero Ignacio MD PCP - General 05/25/16 05/01/19 [place] [address] [place] [address] PCP - General Internal Medicine 05/02/19 [place] [address] [place] [address] Surgeon Orthopedic Surgery 07/30/17 [place] [address] [place] [address] Nurse Practitioner Hematology 03/11/20 05/09/22 Shonda Smart MD [address] [facility] [address] [place] [address] Medical Oncologist/Hematologis t Medical Oncology 03/30/20 08/28/23 Leann No MD [address] [facility] [address] [place] [address] Medical Oncologist/Hematologis t Hematology 08/17/21 05/09/22 Emery Angeles MD [address] [facility] [address] [place] [address] Consulting Physician Cardiothoracic Surgery 06/24/22 Miscellaneous, Not In File 06/24/22 Nieves Rhodes, DUL[place] [address] [place] [address] [address] [place] [address] Mouthpiece Maker 05/23/23 12/20/23 documented as of this encounter
--- OUTSIDE RECORDS SUMMARY | 2024-08-26 23:36 | XMS_ITS | Encounter Summary ---
Author Organization [facility] Healthcare Address [address] [place] [address] Care Team Providers Care Securities Lending Trader Name Role Phone Herbie Melendrez MD Unavailable Nisreen Gayle MD Primary Care Provider An Sin NP Unavailable [phone] Shonda Smart MD Unavailable Leann No MD Unavailable Emery Angeles MD Unavailable [phone] Miscellaneous, Not In File Unavailable Unava ilable Nieves Rhodes RN Unavailable [phone] Encounter Details Date Type Department Care Team (Late st Contact Info) Description 03/30/2020 Telephone [facility] Imaging [address] [address] GISE[place]A [place]HER [address] [address] Social History Tobacco Use [...] on file 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 Gender Identity Male 09/21/2020 8:05 AM CDT Sexual Orientation Straight 09/21/2020 8: 05 AM CDT documented as of this encounter Plan of Treatment Not on file documented as of this encounter Visit Diagnoses Not on filedocumented in this encounter Care Teams Securities Lending Trader Relationship Specialty [place] [address] [place] [address] PCP - General Internal Medicine 05/02/19 [place] [address] [place] [address] Surgeon Orthopedic Surgery 07/30/17 [place] [address] [place] [address] Nurse Practitioner Hematology 03/11/20 05/09/22 Shonda Smart MD [address] [facility] [address] [place] [address] Medical Oncologist/Hematologis t Medical Oncology 03/30/20 08/28/23 Leann No MD [address] [place] [address] Medical Oncologist/Hematologis t Hematology 08/17/21 05/09/22 Emery Angeles MD [address] [place] [address] Consulting Physician Cardiothoracic Surgery 06/24/22 Miscellaneous, Not In File 06/24/22 Nieves Rhodes RN [address] [place] [address] [address] [place] [address] Supervisor Pairing And Inspecting 05/23/23 12/20/23 documented as of this encounter
--- OUTSIDE RECORDS SUMMARY | 2024-08-26 23:36 | XMS_ITS | Encounter Summary ---
Author Organization [facility] Healthcare Address [address] [place] [address] Care Team Providers Care Greenhouse Or Nursery Transplanter Name Role Phone Herbie Melendrez MD Unavailable Nisreen Gayle MD Primary Care Provider An Sin NP Unavailable Shonda Smart MD Unavailable Leann No MD Unavailable Emery Angeles MD Unavailable Miscellaneous, Not In File Unavailable Unava ilable Nieves Rhodes RN Unavailable [phone] Encounter Details Date Type Department Care Team (Late st Contact Info) Description 07/09/2020 Telephone [facility] Imaging [address] [address] GISE[address] [place]HER [address] [address], RT Social History Tobacco Use [...] on file 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 Gender Identity Male 09/21/2020 8:05 AM CDT Sexual Orientation Straight 09/21/2020 8: 05 AM CDT documented as of this encounter Plan of Treatment Not on file documented as of this encounter Visit Diagnoses Not on filedocumented in this encounter Care Teams Greenhouse Or Nursery Transplanter Relationship Specialty [place] [address] [place] [address] PCP - General Internal Medicine 05/02/19 [place] [address] [place] [address] Surgeon Orthopedic Surgery 07/30/17 [place] [address] [place] [address] Nurse Practitioner Hematology 03/11/20 05/09/22 Shonda Smart MD [address] [facility] [address] [place] [address] Medical Oncologist/Hematologis t Medical Oncology 03/30/20 08/28/23 Leann No MD [address] [place] [address] [address] [place] [address] Medical Oncologist/Hematologis t Hematology 08/17/21 05/09/22 Emery Angeles MD [address] [facility] [address] [place] [address] Consulting Physician Cardiothoracic Surgery 06/24/22 Miscellaneous, Not In File 06/24/22 Nieves Rhodes RN [address] [place] [address] [address] [place], [place] [id number] Supervisor Scrap Preparation 05/23/23 12/20/23 documented as of this encounter
--- OUTSIDE RECORDS SUMMARY | 2024-08-26 23:36 | XMS_ITS | Encounter Summary ---
Author Organization [facility] Healthcare Address [address] [place] [address] Care Team Providers Care Virginia Line Attendant Name Role Phone Herbie Melendrez MD Unavailable Nisreen Gayle MD Primary Care Provider An Sin NP Unavailable Shonda Smart MD Unavailable Leann No MD Unavailable [phone] Emery Angeles MD Unavailable [phone] Miscellaneous, Not In File Unavailable Unava ilable Nieves Rhodes RN Unavailable [phone] Encounter Details Date Type Department Care Team (Latest Contact Info) Description 01/11/2022 Hospital Encounter [facility] [place] [facility] [address] [place] [id number] Shortness of breath; Pleural effusion Social [...] No 07/19/2022 OASIS B1300: Health Literacy Answer Dagnelo e Recorded Frequency of needing help to read materials from doctor or pharmacy Never 07/19/2022 [facility] Utilities Answer Date Recorded In the past [...] often do you attend chur ch or restorationism services? Never 09/25/2023 Do you belong to any clubs o r organizations such as buddhist groups, unions, fraternal or athletic groups, or [...] any time in the past 12 m [facility], were you homeless or living in a long term (including now)? No 09/25/2023 Personal Safety Answer Date Recorded Have you ever been in or are you currently in a harmful physical or emotional relationship or is someone making you feel afraid or unsafe? Denies 01/25/2024 Sex and Gender Information Value Date Recorded Sex Assigned at Not on file Legal Sex Male 1:50 AM CORPORATE RELATIONS DIRECTOR Gender Identity Male 09/21/2020 8:05 AM [...] Diagnosis Comments EGFR Routine 01/11/2022 9:20 AM CORPORATE RELATIONS DIRECTOR Shortness of breath Pleural effusion PRO B-TYPE NATRIURETIC PEPTIDE Routine 01/11/2022 9:20 AM CORPORATE RELATIONS DIRECTOR Shortness of breath Pleural effusion BASIC METABOLIC PANEL Routine 01/11/2022 9:20 AM CORPORATE RELATIONS DIRECTOR Shortness of breath Pleural effusion documented in this encounter Results * eGFR (01/11/2022 9:20 AM CORPORATE RELATIONS DIRECTOR) eGFR 72 mL/min/1. 73 m2 PALLAVI RIVERA [...] was last reviewed 2020. Testing performed by: [facility] [address], [facility] [address] Blood 01/11/2022 9:20 AM CORPORATE RELATIONS DIRECTOR 01/11/2022 9:33 AM CORPORATE RELATIONS DIRECTOR us Krish Alexander MD LAB BLOOD ORDERABLES Final Res ult PALLAVI RIVERA [address] Department [place] [address] * Basic metabolic panel (01/11/2022 9:20 AM CORPORATE RELATIONS DIRECTOR) Sodium 138 135 - 145 mmol/L CERNER CH Comment:Testing performed by : [facility],[address] [place] [address] Potassium, pl 4.2 3.3 - 4.9 mmol/L CERNER CH Comment:Testing performed by : [facility],[address] [place] [address] Chloride 103 97 - 110 mmol/L CERNER CH Comment:Testing performed by : [facility],[address] [place] [address] CO2 24 22 - 32 mmol/L CERNER CH Comment:Testing performed by : [facility],[address] [place] [address] Anion gap 11 2 - 15 mmol/L CERNER CH Comment:Testing performed by : [facility],[address] [place] [address] BUN 25 8 - 25 mg/dL CERNER CH Comment:Testing performed by : [facility],[address] [place] [address] Creatinine 1.10 0.80 - 1.30 mg/dL CERNER CH Comment:Testing performed by : [facility],[address] [place] [address] Glucose 139 70 - 199 mg/dL CERNER [...] was last revised 2016. Testing performed by: [facility],[address] [place] [address] Calcium 9.4 8.5 - 10.3 mg/dL CERNER CH Comment:Testing performed by : [facility],[address] [place] [address] Blood 01/11/2022 9:20 AM CORPORATE RELATIONS DIRECTOR 01/11/2022 9:33 AM CORPORATE RELATIONS DIRECTOR Narrative CERNER - 01/11/2022 11:05 AM CORPORATE RELATIONS DIRECTOR Has the patient fasted?->No us Krish Alexander MD LAB BLOOD ORDERABLES Edited Re sult - Final PALLAVI RIVERA [address] [facility] Department [place] [address] * Pro B-type natriuretic peptide (01/11/2022 9:20 AM CORPORATE RELATIONS DIRECTOR) NT-proBNP 144 <=300 pg/mL PALLAVI Comment: Interpretive [...] Revised Date: 2017. Blood 01/11/2022 9:20 AM CORPORATE RELATIONS DIRECTOR 01/11/2022 10:48 AM CORPORATE RELATIONS DIRECTOR Krish Alexander MD LAB [place]LOOD [place] [address] Department [place] [address] documented in this encounter Visit Diagnoses Diagnosis Shortness of breath Pleural effusion Unspecified pleural effusion documented in this encounter Care Teams Virginia Line Attendant Relationship Specialty [place] [address] [place] [address] PCP - General Internal Medicine 05/02/19 [place] [address] [place] [address] Surgeon Orthopedic Surgery 07/30/17 [place] [address] [place] [address] Nurse Practitioner Hematology 03/11/20 05/09/22 Shonda Smart MD [facility] [place], [place] [id number] Medical Oncologist/Hematologis t Medical Oncology 03/30/20 08/28/23 Leann No MD [address] [place], [place] [id number] Medical Oncologist/Hematologis t Hematology 08/17/21 05/09/22 Emery Angeles MD [address] [place], [place] [id number] Consulting Physician Cardiothoracic Surgery 06/24/22 Miscellaneous, Not In File 06/24/22 Nieves Rhodes RN [address] [place] [address] [address] [place] [address] Molecular Biology Director 05/23/23 12/20/23 documented as of this encounter
--- OUTSIDE RECORDS SUMMARY | 2024-08-26 23:36 | XMS_ITS | Encounter Summary ---
Author Organization [facility] Address [address] [place] [address] Phone Care Team Providers Care Machine Sole Leveler Name Role Phone Baldomero Ignacio MD Primary [...] (Late st Contact Info) Description 09/18/2018 Telephone [facility] Oncology [address] [facility] [address] [place] [address] Yane Chu, A SCHEDULE UPDATE Social History Tobacco Use Types Packs/Day Years Used Date Smoking Tobacco: Former Smokeless Tobacco: Never Alcohol Use Standard Drinks/Week Comments Yes 0 (1 standard drink = 0.6 oz pur e alcohol) saocial Sex and Gender Information Value Date Recorded Sex Assigned at Not on file 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 Gender Identity Male 09/21/2020 8:05 AM CDT Sexual Orientation Straight 09/21/2020 8: 05 AM CDT documented as of this encounter Plan of Treatment Not on file documented as of this encounter Visit Diagnoses Not on filedocumented in this encounter Care Teams Machine Sole Leveler Relationship Specialty Start Date End Date Baldomero Ignacio MD PCP - General 05/25/16 05/01/19 [place] [address] [place] [address] PCP - General Internal Medicine 05/02/19 [place] [address] [place] [address] Surgeon Orthopedic Surgery 07/30/17 [place] [address] [place] [address] Nurse Practitioner Hematology 03/11/20 05/09/22 Shonda Smart MD [address] [place] [address] [address] [place] [address] Medical Oncologist/Hematologis t Medical Oncology 03/30/20 08/28/23 Leann No MD [address] [place], [place] [id number] Medical Oncologist/Hematologis t Hematology 08/17/21 05/09/22 Emery Angeles MD [address] [place] [address] [address] [place] [address] Consulting Physician Cardiothoracic Surgery 06/24/22 Miscellaneous, Not In File 06/24/22 Nieves Rhodes, DULCE [address] [place] [address] [address] [place] [address] Manager Event 05/23/23 12/20/23 documented as of this encounter
--- OUTSIDE RECORDS SUMMARY | 2024-08-26 23:36 | XMS_ITS | Encounter Summary ---
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 3-vessel coronary artery disease Procedures na Referral ID Status Reason Start Date Expiration Date Visits Re quested Visits Authorized [id number] 1 1 Encounter Details Date Type Department Care Team (Late st Contact Info) Description 05/26/2022 1:00 PM CDT Hospital Encounter [facility] [address] [place] [address] Emery Angeles MD [id number] [place] [address] Social History Tobacco Use Types Packs/Day Years [...] doctor or pharmacy Never 07/19/2022 [facility] Utilities Answer Date Recorded In the past 12 months has th e [employer], gas, oil, or water [employer] threatened to shut off services in your [...] often do you attend chur ch or pentecostalism services? Never 09/25/2023 Do you belong to any clubs o r organizations such as moravian groups, unions, fraternal or athletic groups, or [...] in the past [address] [facility], were you homeless or living in a halfway (including now)? No 09/25/2023 Personal Safety Answer Date Recorded Have you ever been in or are you currently in a harmful physical or emotional relationship or is someone making you feel afraid or unsafe? Denies 01/25/2024 Sex and Gender Information Value Date Recorded Sex Assigned at Not on file Legal Sex Male 1:50 AM NURSING OFFICER Gender Identity Male 09/21/2020 8:05 AM CDT [...] 05/26/2022 documented in this encounter Care Teams Cytologist Relationship Specialty [place] [address] [place] [address] PCP - General Internal Medicine 05/02/19 [place] [address] [place] [address] Surgeon Orthopedic Surgery 07/30/17 Shonda Smart MD [address] [facility] [address] [place] [address] Medical Oncologist/Materials Recycler Medical Oncology 03/30/20 08/28/23 documented as of this encounter
[2024-08-27] VITALS (17 sets, daily range): BP systolic 107–183; BP diastolic 53–80; PULSE 47–92; RESP 16–27; TEMP 36.3–36.9; O2SAT 89–100; BMI 30.7
--- NOTE | 2024-08-27 | ECHO_ITS ---
Patient Info Name: Jack Corbett Age: 73 years : 1950 Gender: Male Ht: 71 in Wt: 220 lbs BSA: 2.26 m2 HR: 60 bpm BP: 107 / 53 mmHg Technical Quality: Fair Exam Date: 08/27/2024 4:00 PM Patient Status: I Admit Date: 08/27/2024 Exam Type: CA echo dop color flow w con Complete two-dimensional, color flow and Doppler transthoracic echocardiogram is performed with contrast to opacify the left ventricle and to improve the deliniation of the left ventricle endocardial borders. Staff Referring Physician: Viral Bradley Tieing Machine Operator: Lori Peraza Attending Provider: Darshana Walker DO Contrast/Agitated Saline Contrast/Ag. Saline: Definity Amount: 2.00 ml Administered By: Lori Peraza Existing IV Access: Yes IV Access Condition: patent with no signs of infiltration Summary 1. Left ventricular chamber dimension is normal. 2. Left ventricular septal wall motion is abnormal with septal motion related to bundle branch block. 3. Left ventricular systolic function is normal, estimated at 60-65. 4. The left ventricular diastolic function is normal. 5. Definity contrast administered improved wall motion interpretation. 6. E/e' 8 is minimally elevated. 7. Left atrial chamber dimension is mildly enlarged. 8. There is mild aortic valve sclerosis. 9. There is mild tricuspid valve regurgitation. 10. No pulmonary hypertension, estimated pulmonary arterial systolic pressure is 32 mmHg. 11. There is trace pulmonic regurgitation. Left Ventricle E/e' 8 is minimally elevated. Left ventricular chamber dimension is normal. Left ventricular systolic function is normal, estimated at 60-65. Left ventricular septal wall motion is abnormal with septal motion related to bundle branch block. The left ventricular diastolic function is normal. Definity contrast administered improved wall motion interpretation. Right Ventricle Right ventricular chamber dimension is normal. Right ventricular systolic function is normal. Left Atria Left atrial chamber dimension is mildly enlarged. Right Atria Right atrial chamber dimension is normal. Aortic Valve The aortic valve is trileaflet. There is mild aortic valve sclerosis. There is no aortic valve stenosis. There is no aortic valve regurgitation. Pulmonic Valve There is trace pulmonic regurgitation. Mitral Valve There is no mitral valve stenosis. There is no mitral valve regurgitation. Tricuspid Valve There is mild tricuspid valve regurgitation. No pulmonary hypertension, estimated pulmonary arterial systolic pressure is 32 mmHg. Pericardium/Pleural There is no pericardial effusion. Inferior Vena Cava Normal inferior vena cava with >50% collapse upon inspiration consistent with normal right atrial pressure, 5 mmHg. Aorta The aortic root size at the sinus of Valsalva is normal. Left Ventricular Outflow Tract Name Value Normal LVOT 2D LVOT Diameter 2.0 cm LVOT Doppler LVOT Peak Velocity 105 cm/s LVOT Peak Gradient 4 mmHg LVOT Mean Gradient 2 mmHg LVOT VTI 21 cm LVOT VTI/AV VTI Ratio 0.7 LVOT Stroke Volume 67 ml LVOT CO 3.6 l/min LVOT CI 1.6 l/min/m2 Pulmonic Valve Name Value Normal RVOT Doppler RVOT Peak Velocity 78 cm/s RVOT Peak Gradient 2 mmHg PV Doppler PV Peak Velocity 125 cm/s PV Peak Gradient 6 mmHg Mitral Valve Name Value Normal MV Diastolic Function MV E Peak Velocity 90 cm/s MV A Peak Velocity 81 cm/s MV E/A 1.1 MV Decel Time (PW) 252 ms MV Annular TDI MV E/e' (Septal) 10.2 MV E/e' (Lateral) 7.7 MV E/e' (Average) 9.0 Tricuspid Valve Name Value Normal TV Regurgitation Doppler TR Peak Velocity 261 cm/s TR Peak Gradient 27 mmHg Estimated PAP/RSVP RA Pressure 5 mmHg <=5 PA Systolic Pressure 32 mmHg <36 RV Systolic Pressure 32 mmHg <36 TV Annular TDI TV Lateral Judy s' Velocity 7.9 cm/s >=9.5 Aortic Valve Name Value Normal AV Doppler AV Peak Velocity 163 cm/s AV Peak Gradient 11 mmHg AV Mean Gradient 5 mmHg AV VTI 31 cm AV Area (Cont Eq VTI) 2.2 cm2 >=3.0 AV Area (Cont Eq Eric) 2.0 cm2 AV DI (Eric) 0.64 AV Regurgitation 2D LVOT Area 3.1 cm2 Ventricles Name Value Normal LV Dimensions 2D/MM IVS Diastolic Thickness (2D) 1.1 cm 0.6-1.0 LVID Diastole (2D) 5.2 cm 4.2-5.8 LVIW Diastolic Thickness (2D) 1.1 cm 0.6-1.0 LVID Systole (2D) 3.3 cm 2.5-4.0 LVOT Diameter 2.0 cm LV Mass (2D Cubed) 212.90 g 88.00-224.00 LV Mass Index (2D Cubed) 94 g/m2 49-115 Relative Wall Thickness (2D) 0.41 <=0.42 LV Fractional Shortening/Ejection Fraction 2D/MM LV Fractional Shortening (2D) 36 % 25-43 LV EF (2D Teichholz) 65 % LV Diastolic Volume (4C MOD) 145 ml LV EF (4C MOD) 70 % LV Diastolic Volume (2C MOD) 67 ml LV EF (2C MOD) 71 % LV Diastolic Volume (BP MOD) 108 ml 62-150 LV Diastolic Volume Index (BP MOD) 48 ml/m2 34-74 LV Systolic Volume (BP MOD) 32 ml 21-61 LV Systolic Volume Index (BP MOD) 14 ml/m2 11-31 LV EF (BP MOD) 71 % 52-72 LV Diastolic Length (4C) 8.3 cm LV Systolic Length (4C) 7.4 cm LV Stroke Volume (4C MOD) 102 ml Atria Name Value Normal LA Dimensions LA Volume (4C A-L) 67 ml LA Volume (BP A-L) 60 ml RA Dimensions RA Area (4C) 14.6 cm2 <=18.0 Report Signatures
--- NOTE | 2024-08-27 01:57 | ECG_ITS ---
Test Date: 2024-08-27 02:01:11 Measurements Intervals [place] Rate: 50 P: 53 AL: 174 QRS: 25 QRSD: 105 T: 68 QT: 419 QTc: 383 Interpretive Statements SINUS BRADYCARDIA OTHERWISE NORMAL ECG Compared to ECG 08/26/2024 21:49:43 Sinus rhythm no longer present T-wave abnormality no longer present Electronically Signed On 08-27-2024 10:05:27 CDT by Rafa Burnett M.D.
[2024-08-27 02:57] LABS: Troponin I < 0.012 ng/mL (0.000-0.034)
--- NOTE | 2024-08-27 03:22 | PC.NURSE ---
Md Bradley verbally states we do not need to draw blood cultures before starting IV antibiotics.
[2024-08-27] MEDS: cefTRIAXone 1 GM in SODIUM CHLORIDE 0.9% IV 50 ML 100 ML IVPB (03:25)
[2024-08-27] MEDS: MORPHINE SULFATE (*CRX) 4 MG/ML INJ IV PUSH (03:26)
[2024-08-27] MEDS: HYDROmorphone HCL INJ (*CRX) 2 MG/ML VIAL 0.5 MG IV PUSH (04:10)
[2024-08-27] MEDS: LACTATED RINGERS 1,000 ML 999 ML IV CONT (04:10)
[2024-08-27] MEDS: ONDANSETRON INJ 4 MG/2 ML VIAL IV PUSH (04:10)
--- NOTE | 2024-08-27 04:24 | PC.NURSE ---
screen stretcher called phelobotomy to draw blood from pt due to difficult attempts from two RNs and two techs.
[2024-08-27] MEDS: LACTATED RINGERS 1,000 ML 125 ML IV CONT ×2 (06:19→13:10)
[2024-08-27] MEDS: AZITHROMYCIN IV 500 MG in SODIUM CHLORIDE 0.9% IV 250 ML IVPB (06:33)
[2024-08-27 07:02] LABS: Troponin I < 0.012 ng/mL (0.000-0.034)
--- NOTE | 2024-08-27 07:58 | PM.IMHP ---
H&P: HPI History of Present Illness Date/Time: 08/27/24 07:58 Chief Complaint: Chest pain Narrative: 73 years old gentleman with history of hypertension, hyperlipidemia, CAD status post coronary artery bypass grafting 2 years ago presented ED with a chief complaint of chest pain. Patient had a sudden onset chest pain yesterday evening, locating the left chest, radiating to the back, associated with nausea with vomiting. Patient also has heartburn sensation. Patient denies headache, lightheadedness, fever, chills, dysuria, bloody stools. Patient denies trauma, injury Upon arrival to ED, patient was afebrile, blood pressure stable, no O2 desaturation room air,. CBC showed mild anemia hemoglobin 12.7, white blood cell of 4100, platelet [id number] chemistry unremarkable 3 times troponin negative EKG showed sinus rhythm bradycardia, T-wave Urology in V1 to V2 [facility] Family History Family History (Updated 08/27/24 @ 06:11 by Sulma Toure RN) Mother Diabetes mellitus Father Diabetes mellitus Social History Social History Smoking status: Never smoker Alcohol intake: current Drinks per week: 2 Substance use: never Do You Feel Safe in your Home?: Yes Lack of Transportation: No Lack of Food: Never True Current Housing: I Have Housing Concerned About Future Housing: No Difficulty Paying Gas/Electric Bills: No Difficulty Paying for Meds: No Currently Unemployed: No Education: High School Diploma/GED Difficulty w/ Childcare or Family Care: No Spiritual care concerns: No Meds Home Medications and Allergies Home Medications ?Medication ?Instructions ?Recorded ?Confirmed ?Type aspirin 81 mg tablet,delayed 81 mg PO DAILY 08/27/24 08/27/24 History release (Adult Aspirin Regimen) atorvastatin 80 mg tablet 80 mg PO QAM 08/27/24 08/27/24 History benzonatate 200 mg capsule 200 mg PO PRN PRN cough 08/27/24 08/27/24 History cetirizine 10 mg tablet (24Hour 10 mg PO DAILY 08/27/24 08/27/24 History Allergy) furosemide 20 mg tablet mg 08/27/24 History losartan 50 mg tablet 50 mg PO DAILY@0800 08/27/24 08/27/24 History metformin 500 mg tablet,extended 500 mg PO DAILY@0800 08/27/24 08/27/24 History release 24 hr metoprolol succinate 25 mg 25 mg PO .daily at hs 08/27/24 08/27/24 History tablet,extended release 24 hr pantoprazole 40 mg tablet,delayed 40 mg PO .daily hs 08/27/24 08/27/24 History release paroxetine HCl 20 mg tablet 20 mg PO DAILY 08/27/24 08/27/24 History Allergies Allergy/AdvReac Type Severity Reaction Status Date / Time No Known Allergies Unverified 05/25/09 10:55 Vital Signs Vital Signs - 24 hr 08/26/24 21:49 08/26/24 22:45 08/26/24 22:46 Temperature 97.5 F L Pulse Rate 66 56 L 61 Respiratory Rate 17 17 16 Blood Pressure 159/75 H 200/75 H 191/84 H Pulse Oximetry 100 100 100 Oxygen Delivery Room Air 08/26/24 23:06 08/26/24 23:16 08/26/24 23:16 Temperature Pulse Rate 63 60 Respiratory Rate 23 H Blood Pressure 195/88 H Pulse Oximetry 100 100 Oxygen Delivery Room Air 08/26/24 23:16 08/26/24 23:18 08/26/24 23:31 Temperature Pulse Rate 66 60 56 L Respiratory Rate 16 14 28 H Blood Pressure 176/76 H 176/76 H 174/79 H Pulse Oximetry 100 100 97 Oxygen Delivery 08/26/24 23:46 08/27/24 00:01 08/27/24 00:16 Temperature Pulse Rate 55 L 60 48 L Respiratory Rate 21 H 27 H 20 Blood Pressure 166/68 H 183/80 H 181/76 H Pulse Oximetry 96 100 99 Oxygen Delivery 08/27/24 00:31 08/27/24 00:46 08/27/24 01:01 Temperature Pulse Rate 47 L 61 63 Respiratory Rate 21 H 20 17 Blood Pressure 183/72 H 181/74 H 172/73 H Pulse Oximetry 97 95 Oxygen Delivery 08/27/24 01:16 08/27/24 01:36 08/27/24 01:46 Temperature Pulse Rate 63 50 L 51 L Respiratory Rate 27 H 19 16 Blood Pressure 150/59 H 152/74 H 161/76 H Pulse Oximetry 99 100 99 Oxygen Delivery 08/27/24 02:01 08/27/24 04:18 08/27/24 04:31 Temperature Pulse Rate 49 L 75 79 Respiratory Rate 16 19 18 Blood Pressure 154/73 H 133/78 127/75 Pulse Oximetry 99 89 L 89 L Oxygen Delivery 08/27/24 04:46 08/27/24 06:00 Temperature 97.6 F Pulse Rate 80 92 Respiratory Rate 18 18 Blood Pressure 130/80 118/74 Pulse Oximetry 89 L 93 Oxygen Delivery Exam Narrative: GENERAL: Pleasant, in no acute distress. Well-nourished. - EYES: EOMI. Anicteric. - HENT: Moist mucous membranes. - LUNGS: Clear to auscultation bilaterally, no wheezing, rhonchi, or rales. - CARDIOVASCULAR: Regular rate and rhythm. No murmur. No JVD. - ABDOMEN: Soft, non-tender and non-distended. No palpable masses. - EXTREMITIES: No edema. Peripheral pulses 2+. Non-tender. - NEUROLOGIC: No focal neurological deficits. CN II-XII grossly intact. - PSYCHIATRIC: Awake, Alert and oriented x 3. Appropriate mood and affect. - SKIN: No rashes or lesions. Warm. - LYMPH: No cervical lymphadenopathy. H&P: Results Labs Labs: Short CBC 08/26/24 Range/Units 22:03 WBC 4.1 L (4.5-10.0) K/mm3 Hgb 12.7 L (14.0-18.0) g/dL Hct 38.2 L (42.0-52.0) % Plt Count 118 L (150-375) k/mm3 [facility] [place] 08/26/24 22:03 Sodium 139 Potassium 3.9 Chloride 104 Carbon Dioxide 23 BUN 17 Creatinine 1.13 Glucose 173 H Calcium 9.5 Cardiac Enzymes 08/26/24 08/27/24 08/27/24 Range/Units 22:03 02:09 06:19 Troponin I < 0.012 < 0.012 < 0.012 (0.000-0.034) ng/mL Liver Function 08/26/24 Range/Units 22:03 Total Bilirubin 0.5 (0.2-1.3) mg/dL AST 42 (17-59) U/L ALT 39 (6-50) U/L Alkaline Phosphatase 87 (38-126) U/L Albumin 4.5 (3.5-5.1) g/dL Assessment and Plan Assessment and plan (1) Chest pain due to CAD: Code(s): I25.119 - Atherosclerotic heart disease of [place] coronary artery with unspecified angina pectoris Status: Acute (2) Pancytopenia: Code(s): D61.818 - Other pancytopenia Status: Acute (3) Hyperlipidemia: Code(s): E78.5 - Hyperlipidemia, unspecified Status: Acute (4) Type 2 diabetes mellitus: Code(s): E11.9 - Type 2 diabetes mellitus without complications Status: Acute (5) GERD (gastroesophageal reflux disease): Code(s): K21.9 - Gastro-esophageal reflux disease without esophagitis Status: Acute Plan Chest pain Patient has history of CAD status with CT patient Patient has sudden onset chest pain yesterday, radiating to the back Troponin negative EKG shows sinus rhythm, T-wave inversion V1 to V2 Received aspirin 324 mg once. Will continue aspirin 81 mg daily, Lipitor 80 mg daily p.o. Pending echocardiogram new telemetry monitoring Consult student life vice president for evaluation treatment Pancytopenia CBC showed mild anemia hemoglobin 12.7, white blood cell of 4100, platelet [id number] patient has history of leukemia follow-up heme oncologist in [place] follow-up CBC Multifocal pneumonia Aspiration? CTA chest showed mild patchy peripheral upper and anterior lung groundglass opacities, may represent mild edema or atypical infection.Minimal tracheal airway debris, likely reflecting a degree of aspiration. Received azithromycin and ceftriaxone in the ED Speech evaluation Essential hypertension Continue losartan 50 mg daily p.o. GERD Continue Protonix 40 mg daily p.o. Type 2 diabetes Hold metformin Start insulin sliding scale a.c. q.h.s.
[2024-08-27 08:34] LABS: Immature Reticulocyte Fraction 20.2 % (3.0-15.9); Reticulocyte Hemoglobin Conten 32.8 pg (28.2-36.6); Reticulocytes Absolute 0.07 10^6/uL (0.02-0.10)
[2024-08-27 08:41] LABS: Iron 33 ug/dL (49-181)
[2024-08-27 08:53] LABS: Percent Iron Saturation 10 % (20-50)
--- NOTE | 2024-08-27 08:56 | PCSTNOTE ---
Please refer to the Bedside Swallow Evaluation in the EMR. Please note, silent aspiration cannot be ruled out at bedside. The patient is a 73 year old male admitted with chest pain and questionable pneumonia as seen on a recent CXR. Orders were received to complete a bedside swallow evaluation. The patient was positioned upright and assessed with his morning meal to include thin liquid, and soft solids. Oral stage: Timely oral preparation across consistencies without viewed oral residual. Pharyngeal Stage: Swallow initiation was completed in a timely manner with good laryngeal elevation. No observed coughing/choking or changes in vocal quality for all consistencies. Swallow appears within normal limits. No further speech services indicated.
[2024-08-27 09:22] LABS: Ferritin 324.00 ng/mL (11.1-264)
[2024-08-27] MEDS: LORATADINE 10 MG TABLET PO (09:36)
[2024-08-27] MEDS: ATORVASTATIN 40 MG TABLET 80 MG PO (09:36)
[2024-08-27] MEDS: LOSARTAN POTASSIUM 50 MG TABLET PO (09:36)
[2024-08-27] MEDS: ASPIRIN 81 MG ENTERIC TABLET PO (09:36)
--- NOTE | 2024-08-27 10:01 | P.CONCA_ITS ---
Assessment and Plan Assessment and plan (1) Chest pain: Code(s): R07.9 - Chest pain, unspecified Status: Acute Assessment and Plan: He has been r/o for OR by serial troponin and EKG. Possible pneumonia? On antibiotics. Obtain lexiscan myoview in AM. Obtain echo for chronic MATA. (2) CAD (coronary artery disease), autologous vein bypass graft: Code(s): I25.810 - Atherosclerosis of coronary artery bypass graft(s) without angina pectoris Status: Acute (3) Hyperlipidemia: Code(s): E78.5 - Hyperlipidemia, unspecified Status: Acute Assessment and Plan: On Atorvastatin. (4) Hypertension: Code(s): I10 - Essential (primary) hypertension Status: Acute Assessment and Plan: Stable. History of Present Illness History of Present Illness Consult date/time: 08/27/24 10:01 Reason For Visit: Chest pain, atypical pneumonia Narrative: 73 yr old man presents to ER with chest pain. He has a history of CABG x 2 vessels at [facility] in 2022, DM, hypertension, dyslipidemia. 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 Alexander with [facility]. States he was resting yesterday when he felt chest tightness around his chest that radiated down to abdomen then back to lower sternum. He had nausea and some vomiting of clear fluids. He had eaten crackers with tuna. He has chronic MATA walking short about 1-2 blocks and was reason for CABG but did not resolve after CABG. Denies orthopnea, PND, edema, dizziness, palpitations. Review of Systems 2 Review of Systems: All systems reviewed & are unremarkable except as noted in HPI and below Constitutional: Constitutional: Reports as per HPI, Denies chills and Denies fever(s) Cardiovascular: Cardiovascular: Reports as per HPI, Reports chest pain and Denies irregular heart rhythm Respiratory: Respiratory: Reports as per HPI and Reports dyspnea on exertion Gastrointestinal: Gastrointestinal: Reports as per HPI, Reports abdominal pain, Reports nausea and Reports vomiting Genitourinary: Genitourinary: Reports as per HPI and Denies dysuria Musculoskeletal: Musculoskeletal: Reports as per HPI Neurologic: Reports as per HPI, Denies dizziness and Denies syncope [facility] Family History Family History (Updated 08/27/24 @ 06:11 by Sulma Toure RN) Mother Diabetes mellitus Father Diabetes mellitus Social History Social History Smoking status: Never smoker Alcohol intake: current Drinks per week: 2 Substance use: never Do You Feel Safe in your Home?: Yes Lack of Transportation: No Lack of Food: Never True Current Housing: I Have Housing Concerned About Future Housing: No Difficulty Paying Gas/Electric Bills: No Difficulty Paying for Meds: No Currently Unemployed: No Education: High School Diploma/GED Difficulty w/ Childcare or Family Care: No Spiritual care concerns: No Meds Home Medications and Allergies Home Medications ?Medication ?Instructions ?Recorded ?Confirmed ?Type aspirin 81 mg tablet,delayed 81 mg PO DAILY 08/27/24 08/27/24 History release (Adult Aspirin Regimen) atorvastatin 80 mg tablet 80 mg PO QAM 08/27/24 08/27/24 History benzonatate 200 mg capsule 200 mg PO PRN PRN cough 08/27/24 08/27/24 History cetirizine 10 mg tablet (24Hour 10 mg PO DAILY 08/27/24 08/27/24 History Allergy) furosemide 20 mg tablet mg 08/27/24 History losartan 50 mg tablet 50 mg PO DAILY@0800 08/27/24 08/27/24 History metformin 500 mg tablet,extended 500 mg PO DAILY@0800 08/27/24 08/27/24 History release 24 hr metoprolol succinate 25 mg 25 mg PO .daily at hs 08/27/24 08/27/24 History tablet,extended release 24 hr pantoprazole 40 mg tablet,delayed 40 mg PO .daily hs 08/27/24 08/27/24 History release paroxetine HCl 20 mg tablet 20 mg PO DAILY 08/27/24 08/27/24 History Allergies Allergy/AdvReac Type Severity Reaction Status Date / Time No Known Allergies Unverified 05/25/09 10:55 Vital Signs Vital Signs - 24 hr 08/26/24 21:49 08/26/24 22:45 08/26/24 22:46 Temperature 97.5 F L Pulse Rate 66 56 L 61 Respiratory Rate 17 17 16 Blood Pressure 159/75 H 200/75 H 191/84 H Pulse Oximetry 100 100 100 Oxygen Delivery Room Air 08/26/24 23:06 08/26/24 23:16 08/26/24 23:16 Temperature Pulse Rate 63 60 Respiratory Rate 23 H Blood Pressure 195/88 H Pulse Oximetry 100 100 Oxygen Delivery Room Air 08/26/24 23:16 08/26/24 23:18 08/26/24 23:31 Temperature Pulse Rate 66 60 56 L Respiratory Rate 16 14 28 H Blood Pressure 176/76 H 176/76 H 174/79 H Pulse Oximetry 100 100 97 Oxygen Delivery 08/26/24 23:46 08/27/24 00:01 08/27/24 00:16 Temperature Pulse Rate 55 L 60 48 L Respiratory Rate 21 H 27 H 20 Blood Pressure 166/68 H 183/80 H 181/76 H Pulse Oximetry 96 100 99 Oxygen Delivery 08/27/24 00:31 08/27/24 00:46 08/27/24 01:01 Temperature Pulse Rate 47 L 61 63 Respiratory Rate 21 H 20 17 Blood Pressure 183/72 H 181/74 H 172/73 H Pulse Oximetry 97 95 Oxygen Delivery 08/27/24 01:16 08/27/24 01:36 08/27/24 01:46 Temperature Pulse Rate 63 50 L 51 L Respiratory Rate 27 H 19 16 Blood Pressure 150/59 H 152/74 H 161/76 H Pulse Oximetry 99 100 99 Oxygen Delivery 08/27/24 02:01 08/27/24 04:18 08/27/24 04:31 Temperature Pulse Rate 49 L 75 79 Respiratory Rate 16 19 18 Blood Pressure 154/73 H 133/78 127/75 Pulse Oximetry 99 89 L 89 L Oxygen Delivery 08/27/24 04:46 08/27/24 06:00 Temperature 97.6 F Pulse Rate 80 92 Respiratory Rate 18 18 Blood Pressure 130/80 118/74 Pulse Oximetry 89 L 93 Oxygen Delivery Exam 2 Const: General: cooperative, healthy appearing and comfortable Resp: Auscultation: clear to auscultation bilaterally, no crackles, no rales, no rhonchi and no wheezes Cardio: Rate: regular rate Rhythm: regular rhythm Heart sounds: no murmurs Peripheral pulses: dorsalis pedis present GI: GI Palp: No abdominal tenderness and Yes Soft to palpation Neuro: General: oriented to person, oriented to place and oriented to time Extrem: Right lower extremity: no edema Left lower extremity: no edema Results Labs and Meds 08/26/24 22:03 08/26/24 22:03 Lab results: Cardiac Enzymes 08/26/24 08/27/24 08/27/24 Range/Units 22:03 02:09 06:19 AST 42 (17-59) U/L Troponin I < 0.012 < 0.012 < 0.012 (0.000-0.034) ng/mL Coagulation 08/26/24 Range/Units 22:03 PT 12.7 (11.1-14.7) Seconds APTT 28.4 (22.3-36.8) Seconds CBC 08/26/24 Range/Units 22:03 WBC 4.1 L (4.5-10.0) K/mm3 RBC 4.29 L (4.6-6.20) M/mm3 Hgb 12.7 L (14.0-18.0) g/dL Hct 38.2 L (42.0-52.0) % Plt Count 118 L (150-375) k/mm3 Lymph # (Auto) 0.61 L (0.9-3.2) K/mm3 [place] # (Auto) 0.4 (0.1-0.6) K/mm3 Eos # (Auto) 0.1 (0-0.3) K/mm3 Baso # (Auto) 0.0 (0.0-0.1) K/mm3 Comprehensive Metabolic Panel 08/26/24 Range/Units 22:03 Sodium 139 (137-145) mmol/L Potassium 3.9 (3.4-5.0) mmol/L Chloride 104 (98-107) mmol/L Carbon Dioxide 23 (22-30) mmol/L BUN 17 (9-20) mg/dL Creatinine 1.13 (0.7-1.3) mg/dL Glucose 173 H (65-110) mg/dL Calcium 9.5 (8.4-10.2) mg/dL AST 42 (17-59) U/L ALT 39 (6-50) U/L Alkaline Phosphatase 87 (38-126) U/L Total Protein 8.6 H (6.3-8.2) g/dL Albumin 4.5 (3.5-5.1) g/dL Intake and Output 08/26/24 08/27/24 08/27/24 23:59 07:59 15:59 Intake Total 50 Balance 50 Intake: IV 50 cefTRIAXone 1 gm In Sodium 50 Chloride 0.9% IV 50 ml @ 100 mls/hr IVPB ONCE STA Rx#: [id number] Patient Weight 08/27/24 23:59 Weight 100 kg
[2024-08-27] MEDS: cefTRIAXone 2 GM in SODIUM CHLORIDE 0.9% IV 100 ML 200 ML IVPB (13:11)
[2024-08-27] MEDS: PERFLUTREN LIPID MICROSPHERES 1.5 ML VIAL DILUTED TO 10 ML TOTAL VOLUME IV PUSH (16:35)
--- NOTE | 2024-08-27 16:52 | IVDEFINITY ---
Prior to administration of IV Definity the patient was educated on the risks and benefits of the imaging enhancing agent including potential adverse side effects. The patient verbalized understanding. Allergies were verified. No exclusion criteria were identified and at least one of the following inclusion criteria were met: 1) physician request, 2) patient technically difficult to image (per the [place] [employer] of Echocardiography guidelines of two or more segments not discernable within the apical view), or 3) questionable left ventricular function. ?
[2024-08-27] MEDS: metFORMIN HCL XR 500 MG TAB.SR.24H 1000 MG PO (18:12)
[2024-08-27] MEDS: PANTOPRAZOLE 40 MG TABLET PO (21:28)
[2024-08-27] MEDS: METOPROLOL SUCCINATE EXT REL 25 MG TABCR PO (21:29)
[2024-08-28 00:05] VITALS: PULSE 48
[2024-08-28] MEDS: LACTATED RINGERS 1,000 ML 125 ML IV CONT (00:23)
[2024-08-28 04:00] VITALS: PULSE 56
[2024-08-28] MEDS: AZITHROMYCIN 250 MG/NS 250 ML 250 MG/250 ML BAG IVPB (05:43)
[2024-08-28 06:00] VITALS: BP 137/66; PULSE 62; RESP 16; TEMP 36.3; O2SAT 100
--- NOTE | 2024-08-28 07:46 | PM.PNCARD ---
Progress Note: A&P Assessment and Plan (1) Chest pain: Code(s): R07.9 - Chest pain, unspecified Status: Acute Assessment and Plan: Resolved. He has been r/o for MS by serial troponin and EKG. 08/27/24 Echo: EF 60-65%, mild LAE, mild TR, trace PI. Possible pneumonia? On antibiotics. Obtain [employer] this AM. If OK, may d/c home from cardiology standpoint. 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 Alexander with [facility]. (2) CAD (coronary artery disease), autologous vein bypass graft: Code(s): I25.810 - Atherosclerosis of coronary artery bypass graft(s) without angina pectoris Status: Acute (3) Hyperlipidemia: Code(s): E78.5 - Hyperlipidemia, unspecified Status: Acute Assessment and Plan: On Atorvastatin. (4) Hypertension: Code(s): I10 - Essential (primary) hypertension Status: Acute Assessment and Plan: Stable. Subjective Date/time seen: 08/28/24 07:46 Interval history: No longer having chest pain or nausea. No sob. He feels great. Exam Const: General: cooperative, healthy appearing and comfortable Orientation/consciousness: oriented to person, oriented to place and oriented to time Resp: Auscultation: clear to auscultation bilaterally, no crackles, no rales, no rhonchi and no wheezes Cardio: Rate: regular rate Rhythm: regular rhythm Heart sounds: no murmurs Peripheral pulses: dorsalis pedis present Neuro: General: oriented to person, oriented to place and oriented to time Extrem: Right lower extremity: no edema Left lower extremity: no edema Objective Data Vital Signs Vital Signs: Vital Signs - 24 hr 08/27/24 08:00 08/27/24 13:00 08/27/24 20:00 Temperature 98.4 F Pulse Rate 66 80 Respiratory Rate 18 Blood Pressure 107/53 L Pulse Oximetry 96 Oxygen Delivery Room Air 08/27/24 21:29 08/27/24 21:29 08/27/24 22:00 Temperature 97.4 F L Pulse Rate 67 63 63 Respiratory Rate 18 18 Blood Pressure 140/64 Pulse Oximetry 99 99 Oxygen Delivery Room Air 08/28/24 00:05 08/28/24 04:00 08/28/24 06:00 Temperature 97.4 F L Pulse Rate 48 L 56 L 62 Respiratory Rate 16 Blood Pressure 137/66 Pulse Oximetry 100 Oxygen Delivery Intake/Output Intake/Output: Intake & Output 08/25/24 08/26/24 08/27/24 08/28/24 23:59 23:59 23:59 23:59 Intake Total 3126.3 800 Balance 3126.3 800 Meds/Results Medications: Active Medications Generic Name Dose Route Start Last Admin Trade Name Freq PRN Reason Stop Dose Admin Acetaminophen 650 mg 08/27/24 03:56 Acetaminophen 325 Mg Tablet PO Q4H PRN Mild Pain (1-3) or Fever Hydrocodone Bitart/Acetaminophen 1 tab 08/27/24 03:56 Hydrocodone/Acetaminophen (*Crx) 5-325 Mg Tablet PO Q4H PRN Pain Rated 4-6 Aspirin 81 mg 08/27/24 09:00 08/27/24 09:36 Aspirin 81 Mg Enteric Tablet PO 81 mg DAILY ANGE Administration Atorvastatin Calcium 80 mg 08/27/24 09:00 08/27/24 09:36 Atorvastatin 40 Mg Tablet PO 80 mg QAM ANGE Administration Benzonatate 200 mg 08/27/24 08:41 Benzonatate 100 Mg Capsule PO TID PRN cough Dextrose 12.5 gm 08/27/24 08:24 Dextrose 50% 25 Gm/50 Ml Syringe IV PUSH PRN PRN Hypoglycemia Protocol Glucagon 1 mg 08/27/24 08:24 Glucagon For Inj 1 Mg Vial IM PRN PRN Hypoglycemia Protocol Glucose 15 gm 08/27/24 08:24 Glucose Oral Gel 15 Gm Of Glucse In 37.5 Gm Tube PO PRN PRN Hypoglycemia Protocol Hydromorphone HCl 0.5 mg 08/27/24 03:56 08/27/24 04:10 Hydromorphone Hcl Inj (*Crx) 2 Mg/Ml Vial IV PUSH 0.5 mg Q4H PRN Administration Pain Rated 7-10 Lactated Ringer's 1,000 mls @ 125 mls/hr 08/27/24 04:00 08/28/24 00:23 Lr - Lactated Ringers Iv IV CONT 125 mls/hr .Q8H ANGE Administration Dextrose 1,000 mls @ 100 mls/hr 08/27/24 08:24 Dextrose 5% 1,000 Ml IVPB PRN PRN Hypoglycemia Protocol Azithromycin 250 mg in 250 mls @ 250 mls/hr 08/28/24 06:00 08/28/24 06:59 Zithromax IVPB Infused Q24H ANGE Infusion Ceftriaxone Sodium 2 gm/ 100 mls @ 200 mls/hr 08/27/24 12:00 08/27/24 13:11 Sodium Chloride IVPB 200 mls/hr Q24H ANGE Administration Insulin Aspart 4 - 8 units 08/27/24 12:00 08/27/24 17:29 Insulin Aspart (*Bkc) 100 Units/Ml SUB-Q Not Given TIDWM [facility] Protocol Insulin Aspart 2 - 4 units 08/27/24 21:00 08/27/24 21:33 Insulin Aspart (*Bkc) 100 Units/Ml SUB-Q Not Given HS [facility] Protocol Loratadine 10 mg 08/27/24 09:00 08/27/24 09:36 Loratadine 10 Mg Tablet PO 10 mg QAM ANGE Administration Losartan Potassium 50 mg 08/27/24 08:00 08/27/24 09:36 Losartan Potassium 50 Mg Tablet PO 50 mg DAILY@0800 [facility] Administration Metformin HCl 1,000 mg 08/27/24 17:00 08/27/24 18:12 Metformin Hcl Xr 500 Mg Tab.Sr.24h PO 1,000 mg DAILY@0800 [facility] Administration Metoprolol Succinate 25 mg 08/27/24 21:00 08/27/24 21:29 Metoprolol Succinate Ext Rel 25 Mg Tabcr PO 25 mg HS ANGE Administration Ondansetron HCl 4 mg 08/27/24 03:56 08/27/24 04:10 Ondansetron Inj 4 Mg/2 Ml Vial IV PUSH 4 mg Q4H PRN Administration Nausea Pantoprazole Sodium 40 mg 08/27/24 21:00 08/27/24 21:28 Pantoprazole 40 Mg Tablet PO 40 mg HS [facility] Administration Paroxetine HCl 20 mg 08/27/24 09:00 08/27/24 09:36 Paroxetine 20 Mg Tablet PO 20 mg DAILY ANGE Administration Radiology Results: ITS Impressions Chest X-Ray 08/26/24 22:28 IMPRESSION: No acute cardiopulmonary process. Stable mild chronic bilateral costophrenic angle blunting, likely related to chronic scarring. Chest/Abdomen/Pelvis CTA 08/26/24 23:04 IMPRESSION: Mild patchy peripheral upper and anterior lung groundglass opacities, may represent mild edema or atypical infection. Minimal tracheal airway debris, likely reflecting a degree of aspiration. Small loculated appearing nonsimple bilateral pleural fluid collections with peripheral calcification, may represent chronic hemothoraces. Empyema not excluded. Urinary bladder wall thickening as can be seen with cystitis or chronic obstruction from prostatomegaly. 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 No aggressive features. Typically, soft tissue lipomas are referred for potential resection, when greater than 5 cm. Labs Labs: Laboratory Results - last 24 hr 08/27/24 08/27/24 08/27/24 06:16 16:44 21:32 Absolute Retic 0.07 Percent Retic 1.66 Immature Retic Fraction 20.2 H Retic Hgb Content 32.8 POC Capillary Glucose 152 H 150 H Iron 33 L TIBC 335 % Saturation 10 L Ferritin 324.00 H
[2024-08-28 08:00] VITALS: PULSE 62; RESP 16; O2SAT 100
--- NOTE | 2024-08-28 08:00 | EST_ITS ---
Patient Info Name: Jack Corbett Age: 73 years : 1950 Gender: Male Ht: 71 in Wt: 220 lbs BSA: 2.26 m2 Exam Date: 08/28/2024 8:00 AM Patient Status: I Admit Date: 08/27/2024 Exam Type: CA stress joyce w NM A regadenoson stress test was performed. Staff Referring Physician: Gerardo Mckeon DO Attending Provider: Darshana Walker DO Exercise Technologist: Kindra Miller Exercise Physician: Gerardo Mckeon DO Summary 1. 1. Negative lexiscan stress test for ischemic ST changes by ECG criteria. 2. 2. Stable hemodynamics throughout the test. 3. 3. Nuclear scan to follow and will be reported separately. Please correlate with it. 4. 4. Patient informed of the above results. Protocol: Lexiscan Stress ECG Details Stage: REST Duration (min): 0 min : 52 sec HR (bpm): 51 SBP (mmHg): 129 DBP (mmHg): 61 Stage: REST Duration (min): 13 min : 57 sec HR (bpm): 52 SBP (mmHg): 129 DBP (mmHg): 61 Stage: STAGE 1 Duration (min): 1 min : 0 sec HR (bpm): 69 SBP (mmHg): 165 DBP (mmHg): 51 Stage: RECOVERY Duration (min): 1 min : 0 sec HR (bpm): 73 SBP (mmHg): 165 DBP (mmHg): 51 Stage: RECOVERY Duration (min): 2 min : 0 sec HR (bpm): 71 SBP (mmHg): 140 DBP (mmHg): 53 Stage: RECOVERY Duration (min): 3 min : 0 sec HR (bpm): 66 SBP (mmHg): 140 DBP (mmHg): 53 Stage: RECOVERY Duration (min): 3 min : 13 sec HR (bpm): 68 SBP (mmHg): 125 DBP (mmHg): 49 Rest HR: 52 bpm Peak HR: 76 bpm Rest Sys BP: 129 mmHg Peak Sys BP: 165 mmHg Max Pred HR: 147 bpm % Max Pred HR: 52 % Target HR: 125 bpm Max RPP: 12,540 bpm*mmHg Termination Reason: Completed protocol Cardiac Symptoms: Shortness of breath Total Time: 1 min : 0 sec Rest Knight BP: 61 mmHg Peak Knight BP: 51 mmHg Total Dose: 0.4 mg Resting ECG Sinus bradycardia. Stress ECG No ST changes. Arrhythmias None. Report Signatures
--- NOTE | 2024-08-28 08:14 | P.PNIM_ITS ---
Progress Note: A&P Assessment and Plan (1) Chest pain due to CAD: Code(s): I25.119 - Atherosclerotic heart disease of [place] coronary artery with unspecified angina pectoris Status: Acute (2) Pancytopenia: Code(s): D61.818 - Other pancytopenia Status: Acute (3) Hyperlipidemia: Code(s): E78.5 - Hyperlipidemia, unspecified Status: Acute (4) Type 2 diabetes mellitus: Code(s): E11.9 - Type 2 diabetes mellitus without complications Status: Acute (5) GERD (gastroesophageal reflux disease): Code(s): K21.9 - Gastro-esophageal reflux disease without esophagitis Status: Acute Plan Chest pain Patient has history of CAD status with CT patient Patient has sudden onset chest pain yesterday, radiating to the back Troponin negative EKG shows sinus rhythm, T-wave inversion V1 to V2 Received aspirin 324 mg once. Will continue aspirin 81 mg daily, Lipitor 80 mg daily p.o. Pending echocardiogram new telemetry monitoring Consult cipher expert for evaluation treatment lexiscan myoview done today Patient does not have chest pain during the stress test Pancytopenia CBC showed mild anemia hemoglobin 12.7, white blood cell of 4100, platelet [id number] patient has history of leukemia [facility] Multifocal pneumonia Aspiration? CTA chest showed mild patchy peripheral upper and anterior lung groundglass opacities, may represent mild edema or atypical infection.Minimal tracheal airway debris, likely reflecting a degree of aspiration. Received azithromycin and ceftriaxone in the ED Speech evaluation, no risk of aspiration change to augmentin po Essential hypertension Continue losartan 50 mg daily p.o. GERD Continue Protonix 40 mg daily p.o. Type 2 diabetes Hold metformin Start insulin sliding scale a.c. q.h.s. Resume home medication after discharge Subjective Date/time seen: 08/28/24 08:14 Interval history: Patient underwent cardiac stress test, Patient does not have chest pain, palpitation, abdomen pain, nausea vomiting diarrhea dysuria Patient afebrile, blood pressure stable, no O2 desaturation on room air Exam Narrative: GENERAL: Pleasant, in no acute distress. Well-nourished. - EYES: EOMI. Anicteric. - HENT: Moist mucous membranes. - LUNGS: Clear to auscultation bilateral ly, no wheezing, rhonchi, or rales. - CARDIOVASCULAR: Regular rate and rhyth m. No murmur. No JVD. - ABDOMEN: Soft, non-tender and non-dist ended. No palpable masses. - EXTREMITIES: No edema. Peripheral puls es 2+. Non-tender. - NEUROLOGIC: No focal neurological defi cits. CN II-XII grossly intact. - PSYCHIATRIC: Awake, Alert and oriented x 3. Appropriate mood and affect. - SKIN: No rashes or lesions. Warm. - LYMPH: No cervical lymphadenopathy. Objective Data Vital Signs Vital Signs: Vital Signs - 24 hr 08/27/24 13:00 08/27/24 20:00 08/27/24 21:29 Temperature 98.4 F Pulse Rate 66 80 67 Respiratory Rate 18 Blood Pressure 107/53 L Pulse Oximetry 96 Oxygen Delivery 08/27/24 21:29 08/27/24 22:00 08/28/24 00:05 Temperature 97.4 F L Pulse Rate 63 63 48 L Respiratory Rate 18 18 Blood Pressure 140/64 Pulse Oximetry 99 99 Oxygen Delivery Room Air 08/28/24 04:00 08/28/24 06:00 Temperature 97.4 F L Pulse Rate 56 L 62 Respiratory Rate 16 Blood Pressure 137/66 Pulse Oximetry 100 Oxygen Delivery Intake/Output Intake/Output: Intake & Output 08/25/24 08/26/24 08/27/24 08/28/24 23:59 23:59 23:59 23:59 Intake Total 3126.3 800 Balance 3126.3 800 Meds/Results Medications: Active Medications Generic Name Dose Route Start Last Admin Trade Name Freq PRN Reason Stop Dose Admin Acetaminophen 650 mg 08/27/24 03:56 Acetaminophen 325 Mg Tablet PO Q4H PRN Mild Pain (1-3) or Fever Hydrocodone Bitart/Acetaminophen 1 tab 08/27/24 03:56 Hydrocodone/Acetaminophen (*Crx) 5-325 Mg Tablet PO Q4H PRN Pain Rated 4-6 Aspirin 81 mg 08/27/24 09:00 08/27/24 09:36 Aspirin 81 Mg Enteric Tablet PO 81 mg DAILY ANGE Administration Atorvastatin Calcium 80 mg 08/27/24 09:00 08/27/24 09:36 Atorvastatin 40 Mg Tablet PO 80 mg QAM ANGE Administration Benzonatate 200 mg 08/27/24 08:41 Benzonatate 100 Mg Capsule PO TID PRN cough Dextrose 12.5 gm 08/27/24 08:24 Dextrose 50% 25 Gm/50 Ml Syringe IV PUSH PRN PRN Hypoglycemia Protocol Glucagon 1 mg 08/27/24 08:24 Glucagon For Inj 1 Mg Vial IM PRN PRN Hypoglycemia Protocol Glucose 15 gm 08/27/24 08:24 Glucose Oral Gel 15 Gm Of Glucse In 37.5 Gm Tube PO PRN PRN Hypoglycemia Protocol Hydromorphone HCl 0.5 mg 08/27/24 03:56 08/27/24 04:10 Hydromorphone Hcl Inj (*Crx) 2 Mg/Ml Vial IV PUSH 0.5 mg Q4H PRN Administration Pain Rated 7-10 Lactated Ringer's 1,000 mls @ 125 mls/hr 08/27/24 04:00 08/28/24 00:23 Lr - Lactated Ringers Iv IV CONT 125 mls/hr .Q8H ANGE Administration Dextrose 1,000 mls @ 100 mls/hr 08/27/24 08:24 Dextrose 5% 1,000 Ml IVPB PRN PRN Hypoglycemia Protocol Azithromycin 250 mg in 250 mls @ 250 mls/hr 08/28/24 06:00 08/28/24 06:59 Zithromax IVPB Infused Q24H ANGE Infusion Ceftriaxone Sodium 2 gm/ 100 mls @ 200 mls/hr 08/27/24 12:00 08/27/24 13:11 Sodium Chloride IVPB 200 mls/hr Q24H ANGE Administration Insulin Aspart 4 - 8 units 08/27/24 12:00 08/27/24 17:29 Insulin Aspart (*Bkc) 100 Units/Ml SUB-Q Not Given TIDWM ANGE Protocol Insulin Aspart 2 - 4 units 08/27/24 21:00 08/27/24 21:33 Insulin Aspart (*Bkc) 100 Units/Ml SUB-Q Not Given HS ANGE Protocol Loratadine 10 mg 08/27/24 09:00 08/27/24 09:36 Loratadine 10 Mg Tablet PO 10 mg QAM ANGE Administration Losartan Potassium 50 mg 08/27/24 08:00 08/27/24 09:36 Losartan Potassium 50 Mg Tablet PO 50 mg DAILY@0800 ANGE Administration Metformin HCl 1,000 mg 08/27/24 17:00 08/27/24 18:12 Metformin Hcl Xr 500 Mg Tab.Sr.24h PO 1,000 mg DAILY@0800 ANGE Administration Metoprolol Succinate 25 mg 08/27/24 21:00 08/27/24 21:29 Metoprolol Succinate Ext Rel 25 Mg Tabcr PO 25 mg HS ANGE Administration Ondansetron HCl 4 mg 08/27/24 03:56 08/27/24 04:10 Ondansetron Inj 4 Mg/2 Ml Vial IV PUSH 4 mg Q4H PRN Administration Nausea Pantoprazole Sodium 40 mg 08/27/24 21:00 08/27/24 21:28 Pantoprazole 40 Mg Tablet PO 40 mg HS ANGE Administration Paroxetine HCl 20 mg 08/27/24 09:00 08/27/24 09:36 Paroxetine 20 Mg Tablet PO 20 mg DAILY ANGE Administration Radiology Results: ITS Impressions Chest X-Ray 08/26/24 22:28 IMPRESSION: No acute cardiopulmonary process. Stable mild chronic bilateral costophrenic angle blunting, likely related to chronic scarring. Chest/Abdomen/Pelvis CTA 08/26/24 23:04 IMPRESSION: Mild patchy peripheral upper and anterior lung groundglass opacities, may represent mild edema or atypical infection. Minimal tracheal airway debris, likely reflecting a degree of aspiration. Small loculated appearing nonsimple bilateral pleural fluid collections with peripheral calcification, may represent chronic hemothoraces. Empyema not excluded. Urinary bladder wall thickening as can be seen with cystitis or chronic obstruction from prostatomegaly. 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 No aggressive features. Typically, soft tissue lipomas are referred for potential resection, when greater than 5 cm. Labs Labs: Laboratory Results - last 24 hr 08/27/24 08/27/24 08/27/24 06:16 16:44 21:32 Absolute Retic 0.07 Percent Retic 1.66 Immature Retic Fraction 20.2 H Retic Hgb Content 32.8 POC Capillary Glucose 152 H 150 H Iron 33 L TIBC 335 % Saturation 10 L Ferritin 324.00 H
--- NOTE | 2024-08-28 08:17 | PM.DS ---
DS: Admitting Diagnosis Discharge Date 08/28/24 Admitting Diagnosis (1) Chest pain due to CAD: Code(s): I25.119 - Atherosclerotic heart disease of [place] coronary artery with unspecified angina pectoris Status: Acute (2) Pancytopenia: Code(s): D61.818 - Other pancytopenia Status: Acute (3) Hyperlipidemia: Code(s): E78.5 - Hyperlipidemia, unspecified Status: Acute (4) Type 2 diabetes mellitus: Code(s): E11.9 - Type 2 diabetes mellitus without complications Status: Acute (5) GERD (gastroesophageal reflux disease): Code(s): K21.9 - Gastro-esophageal reflux disease without esophagitis Status: Acute DS: Discharge Diagnosis Discharge Diagnosis (1) Chest pain due to CAD: Code(s): I25.119 - Atherosclerotic heart disease of [place] coronary artery with unspecified angina pectoris Status: Acute (2) Pancytopenia: Code(s): D61.818 - Other pancytopenia Status: Acute (3) Hyperlipidemia: Code(s): E78.5 - Hyperlipidemia, unspecified Status: Acute (4) Type 2 diabetes mellitus: Code(s): E11.9 - Type 2 diabetes mellitus without complications Status: Acute (5) GERD (gastroesophageal reflux disease): Code(s): K21.9 - Gastro-esophageal reflux disease without esophagitis Status: Acute DS: Summary Hospital Course Hospital Course: 73 years old gentleman with history of hypertension, hyperlipidemia, CAD status post coronary artery bypass grafting 2 years ago presented ED with a chief complaint of chest pain. Patient had a sudden onset chest pain yesterday evening, locating the left chest, radiating to the back, associated with nausea with vomiting. Patient also has heartburn sensation. Patient denies headache, lightheadedness, fever, chills, dysuria, bloody stools. Patient denies trauma, injury Upon arrival to ED, patient was afebrile, blood pressure stable, no O2 desaturation room air,. CBC showed mild anemia hemoglobin 12.7, white blood cell of 4100, platelet [id number] chemistry unremarkable 3 times troponin negative EKG showed sinus rhythm bradycardia, T-wave Urology in V1 to V2 the following med issues have been addressed during hospitalization Chest pain Patient has history of CAD status with CT patient Patient has sudden onset chest pain yesterday, radiating to the back Troponin negative EKG shows sinus rhythm, T-wave inversion V1 to V2 Received aspirin 324 mg once. Will continue aspirin 81 mg daily, Lipitor 80 mg daily p.o. echocardiogram 1. Left ventricular chamber dimension is normal. 2. Left ventricular septal wall motion is abnormal with septal motion related to bundle branch block. 3. Left ventricular systolic function is normal, estimated at 60-65. 4. The left ventricular diastolic function is normal. 5. Definity contrast administered improved wall motion interpretation. 6. E/e' 8 is minimally elevated. 7. Left atrial chamber dimension is mildly enlarged. 8. There is mild aortic valve sclerosis. 9. There is mild tricuspid valve regurgitation. 10. No pulmonary hypertension, estimated pulmonary arterial systolic pressure is 32 mmHg. 11. There is trace pulmonic regurgitation. Consult lumber sticker for evaluation treatment lexiscan myoview done today, no ischemia per lumber sticker Patient does not have chest pain during the stress test Pancytopenia CBC showed mild anemia hemoglobin 12.7, white blood cell of 4100, platelet [id number] patient has history of leukemia follow-up heme oncologist in [facility] Multifocal pneumonia Aspiration? CTA chest showed mild patchy peripheral upper and anterior lung groundglass opacities, may represent mild edema or atypical infection.Minimal tracheal airway debris, likely reflecting a degree of aspiration. Received azithromycin and ceftriaxone in the ED Speech evaluation, no risk of aspiration change to augmentin po Essential hypertension Continue losartan 50 mg daily p.o. GERD Continue Protonix 40 mg daily p.o. Type 2 diabetes Hold metformin Start insulin sliding scale a.c. q.h.s. Resume home medication after discharge Time Spent with Patient Time attestation: Total time spent providing and/or coordinating discharge services: Exam Narrative: GENERAL: Pleasant, in no acute distress. Well-nourished. - EYES: EOMI. Anicteric. - HENT: Moist mucous membranes. - LUNGS: Clear to auscultation bilaterally, no wheezing, rhonchi, or rales. - CARDIOVASCULAR: Regular rate and rhythm. No murmur. No JVD. - ABDOMEN: Soft, non-tender and non-distended. No palpable masses. - EXTREMITIES: No edema. Peripheral pulses 2+. Non-tender. - NEUROLOGIC: No focal neurological deficits. CN II-XII grossly intact. - PSYCHIATRIC: Awake, Alert and oriented x 3. Appropriate mood and affect. - SKIN: No rashes or lesions. Warm. - LYMPH: No cervical lymphadenopathy. DS: Data Data Completed and Pending Labs on day of discharge: Labs from last 24 hours 08/27/24 08/27/24 08/27/24 21:32 16:44 06:16 Absolute Retic 0.07 Percent Retic 1.66 Immature Retic Fraction 20.2 H Retic Hgb Content 32.8 POC Capillary Glucose 150 H 152 H Iron 33 L TIBC 335 % Saturation 10 L Ferritin 324.00 H Discharge Plan Discharge Attending physician on discharge: Jaron West Consulting providers: Gerardo Mckeon; Rafa Burnett; Chris Soto; Andrea Gonsalez Discharging Clinician: Jaron West Anticipated Discharge Date/Time: 08/28/24 14:19 Patient Disposition: Home Activity: no shower Diet: as tolerated and heart healthy Patient Instructions: Antibiotic Form Patient Language: Syriac Stand Alone Forms: General Discharge Information Follow-up/Referrals: Mamie Vera [Other] (Patient needs to see primary care doctor in 1 week ) Discharge Medications: New amoxicillin-pot clavulanate [Augmentin] 500-125 mg tablet 1 tablet PO Q8H Qty: 9 0RF Continued atorvastatin 80 mg tablet 80 mg PO QAM benzonatate 200 mg capsule 200 mg PO PRN PRN (Reason: cough) metformin 500 mg tablet extended release 24 hr 500 mg PO DAILY@0800 furosemide 20 mg tablet losartan 50 mg tablet 50 mg PO DAILY@0800 metoprolol succinate 25 mg tablet extended release 24 hr 25 mg PO .daily at hs pantoprazole 40 mg tablet,delayed release (DR/EC) 40 mg PO .daily hs paroxetine HCl 20 mg tablet 20 mg PO DAILY aspirin [Adult Aspirin Regimen] 81 mg tablet,delayed release (DR/EC) 81 mg PO DAILY cetirizine [24Hour Allergy] 10 mg tablet 10 mg PO DAILY Date of admission: 08/27/24 03:56 Primary Care Provider: Mamie Vera Admitting Provider: Darshana Walker Attending physician on admission: Jaron West Condition: Stable
[2024-08-28] MEDS: ASPIRIN 81 MG ENTERIC TABLET PO (11:33)
[2024-08-28] MEDS: metFORMIN HCL XR 500 MG TAB.SR.24H 1000 MG PO (11:33)
[2024-08-28] MEDS: ATORVASTATIN 40 MG TABLET 80 MG PO (11:33)
[2024-08-28] MEDS: LOSARTAN POTASSIUM 50 MG TABLET PO (11:34)
[2024-08-28] MEDS: cefTRIAXone 2 GM in SODIUM CHLORIDE 0.9% IV 100 ML 200 ML IVPB (11:34)
[2024-08-28] MEDS: LORATADINE 10 MG TABLET PO (11:34)
[2024-08-28 11:44] LABS: Hematocrit 33.7 % (42.0-52.0); Hemoglobin 11.2 g/dL (14.0-18.0); Immature Platelet Fraction Pct 4.1 % (0.9-11.2); Mean Corpuscular HGB Conc 33.2 g/dl (32-36); Mean Corpuscular Hemoglobin 30.0 pg (26-34); Mean Corpuscular Volume 90.3 fl (80-100); Platelet Count Result 89 k/mm3 (150-375); Red Blood Count 3.73 M/mm3 (4.6-6.20); White Blood Count 4.2 K/mm3 (4.5-10.0)
[2024-08-28 12:14] LABS: Anion Gap 7 mmol/L (4-12); Blood Urea Nitrogen 15 mg/dL (9-20); Calcium 9.0 mg/dL (8.4-10.2); Carbon Dioxide 28 mmol/L (22-30); Chloride 99 mmol/L (98-107); Estimated CRCL calculation 60 ml/min; Estimated Glomerular Filt Rate > 60; Glucose 166 mg/dL (65-110); Potassium 4.0 mmol/L (3.4-5.0); Sodium 134 mmol/L (137-145)
== END 2024-08-28 13:31 | disposition home or self-care (01) | DRG 194 ==
LOC: ANHED 23:34 → ANH3MEDSUR 08-27 05:06
PROVIDERS: Admitting Provider Internal Medicine; Emergency Provider Student in an Organized Health Care Education/Training Program; Visit Provider Hospitalist
DX: J18.9 Pneumonia, unspecified organism (principal); D61.818 Other pancytopenia; J90 Pleural effusion, not elsewhere classified; J69.0 Pneumonitis due to inhalation of food and vomit; I25.10 Atherosclerotic heart disease of native coronary artery without angina pectoris; I10 Essential (primary) hypertension; E78.5 Hyperlipidemia, unspecified; K21.9 Gastro-esophageal reflux disease without esophagitis; E11.9 Type 2 diabetes mellitus without complications; Z95.1 Presence of aortocoronary bypass graft
CPT/HCPCS: 36415; 71046; 71275; 74174; 78452; 80048; 80053; 82728; 82948; 83540; 83550; 83605; 83690; 84484; 85025; 85027; 85046; 85055; 85610; 85730; 87040; 92610; 93005; 93017; 96365; 96367; 96368; 96375; 96376; 99285; A9270; A9502; C8929; J0456; J0696; J1171; J2270; J2405; J2785; J7050; J7120; Q9957; Q9967